=== PATIENT | female | born 1945 | race Caucasian/White ===

== ENCOUNTER → 2019-04-09 12:38 | Outpatient (BNVA) | payer MEDICARE, MEDICAID, SELFPAY | PROVIDERS: Family Provider Nurse Practitioner; PCP Nurse Practitioner; Visit Provider Nurse Practitioner | DX: E11.9 Type 2 diabetes mellitus without complications (principal) | CPT/HCPCS: 80053; 81003; 83036 ==

== ENCOUNTER → 2019-04-10 13:50 | Outpatient (BNVA) | payer MEDICARE, MEDICAID, SELFPAY | PROVIDERS: Family Provider Nurse Practitioner; PCP Nurse Practitioner; Visit Provider Nurse Practitioner | DX: M54.6 Pain in thoracic spine (principal); M54.5 Low back pain; I70.0 Atherosclerosis of aorta | CPT/HCPCS: 72072; 72100 ==

== ENCOUNTER → 2019-06-21 10:31 | Outpatient (BNVA) | payer MEDICARE, MEDICAID, SELFPAY | PROVIDERS: Family Provider Nurse Practitioner; PCP Nurse Practitioner; Visit Provider Nurse Practitioner | DX: E11.9 Type 2 diabetes mellitus without complications (principal); I10 Essential (primary) hypertension; R06.00 Dyspnea, unspecified; M10.9 Gout, unspecified; M54.17 Radiculopathy, lumbosacral region; E11.65 Type 2 diabetes mellitus with hyperglycemia; R07.89 Other chest pain | CPT/HCPCS: 71046; 81000 ==

== ENCOUNTER → 2019-06-24 08:39 | Outpatient (BNVA) | payer MEDICARE, MEDICAID, SELFPAY | PROVIDERS: Family Provider Nurse Practitioner; PCP Nurse Practitioner; Visit Provider Nurse Practitioner | DX: E78.5 Hyperlipidemia, unspecified (principal); E11.9 Type 2 diabetes mellitus without complications | CPT/HCPCS: 80053; 80061; 83036; 85025 ==

== ENCOUNTER 2019-07-08 13:18 | Outpatient (CLI) | payer MEDICARE, MEDICAID, SELFPAY ==
--- NOTE | 2019-07-08 13:32 | USCV_ITS ---
Dnaya Reed Age: 74 Gender: F : 1945 Exam Date: 07/08/2019 13:56 Ordering Phys: Shelly Dorsey Technologist: Amaris Preciado Exam Location: [facility] [place] Indication: SOB BP: / HR: 73 Rhythm: Sinus Technical Quality: Adequate MEASUREMENTS (Male / Female) Normal Values 2D ECHO LV Diastolic Diameter PLAX 3.7 cm 4.2 - 5.9 / 3.9 - 5.3 cm LV Systolic Diameter PLAX 1.8 cm LV Chamber Size 2.6 cm IVS Diastolic Thickness 1.4 cm 0.6 - 1.0 / 0.6 - 0.9 cm IVS Systolic Thickness 1.7 cm LVPW Diastolic Thickness 2.3 cm 0.6 - 1.0 / 0.6 - 0.9 cm LVPW Systolic Thickness 1.8 cm RV Chamber Size 1.9 cm LVOT Diameter 2.0 cm LV Ejection Fraction 2D Teich 83.1 % LV Ejection Fraction MOD 2C 39.6 % LV Ejection Fraction 2C AL 37.1 % LA Diameter 5.6 cm LA Width 2.9 cm LA Height 4.4 cm RA Width 2.9 cm RA Height 4.4 cm Aorta at Sinotubular Diameter 2.8 cm M-MODE LV Diastolic Diameter MM 4.4 cm 4.2 - 5.9 / 3.9 - 5.3 cm LV Systolic Diameter MM 2.6 cm LV Ejection Fraction MM Teich 71.5 % IVS Diastolic Thickness MM 0.9 cm 0.6 - 1.0 / 0.6 - 0.9 cm IVS Systolic Thickness MM 1.7 cm LVPW Diastolic Thickness MM 1.3 cm 0.6 - 1.0 / 0.6 - 0.9 cm LVPW Systolic Thickness MM 1.7 cm Aortic Annulus Diameter 3.2 cm LA Ao Ratio MM 1.8 MV E Point Septal Separation 0.5 cm FINDINGS Left Ventricle Normal left ventricular size and systolic function, EF 65%. Mild left ventricular hypertrophy. No regional wall motion abnormalities. Right Ventricle There is thickening of the right ventricular free wall with normal ejection fraction Mildly increased right ventricular size. Right Atrium Mildly increased right atrial size. Left Atrium Mildly increased left atrial size. Mitral Valve Thickened mitral valve. Aortic Valve Thickened aortic valve. Tricuspid Valve Could not be visualized well Pulmonic Valve Not visualized well Pericardium Trivial pericardial effusion. Aorta Normal aortic annulus size. CONCLUSIONS Normal left ventricular size and systolic function, EF 65%. Mild left ventricular hypertrophy. No regional wall motion abnormalities. Mild biatrial enlargement. Thickened aortic and mitral valves. Trivial pericardial effusion. Compared to the study from 05/24/2013, there may not be a significant change in the 2-D findings Dr Seble Hassan MD FACC (Electronically Signed) Final Date: 08 Jul 2019 19:10 S
== END 2019-07-08 13:19 | disposition home or self-care (01) ==
PROVIDERS: Visit Provider Nurse Practitioner
DX: R06.02 Shortness of breath (principal); I08.0 Rheumatic disorders of both mitral and aortic valves; I31.3 Pericardial effusion (noninflammatory)
CPT/HCPCS: 93308

== ENCOUNTER 2019-11-24 18:13 | Emergency (ER) | payer MEDICARE, MEDICAID, SELFPAY ==
[2019-11-24 18:17] VITALS: BP 145/67; PULSE 83; RESP 18; TEMP 37.6; O2SAT 92; BMI 34.3
--- NOTE | 2019-11-24 18:31 | XRR_ITS ---
PROCEDURE INFORMATION: Exam: XR Chest, 1 View Exam date and time: 11/24/2019 7:39 PM Age: 74 years old Clinical indication: Cough and fever TECHNIQUE: Imaging protocol: XR of the chest Views: 1 view. COMPARISON: No relevant prior studies available. FINDINGS: Lungs: Unremarkable. No consolidation. Pleural space: Unremarkable. No pleural effusion. No pneumothorax. Heart/Mediastinum: Cardiomegaly with arteriosclerosis. Bones/joints: Unremarkable for age. Other findings: Obesity. XR/XR chest 1V portable [id number] IMPRESSION: Nonacute.
--- NOTE | 2019-11-24 18:34 | W.ED.URI ---
HPI - URI/Sore Throat General: Chief Complaint: Upper Respiratory Infection Stated Complaint: FLU LIKE SYMPTOMS Time Seen by Provider: 11/24/19 18:28 History of Present Illness: HPI Narrative: Patient complains about cough today was feeling fine yesterday said having some sinus drainage wants make sure she does not have COVID. She not had any exposure that she is aware of been staying home. MD elicited complaint: cough, sore throat, rhinorrhea and nasal congestion Pertinent past history: other (Anxiety) Onset (ago): hour(s) Consistency: intermittent Severity: mild Description of mucous: watery Able to tolerate fluids by mouth: Yes Relieving factors: nothing Associated symptoms: Reports cough and nasal congestion; Deny abdominal pain, chills, chest pain, fever(s), headache(s), nausea or vomiting Review of Systems Const: Denies: fever(s), chills or body aches Eyes: Denies: change in vision or blurry vision ENMT: Reports: throat pain and nasal congestion Card: Denies: chest pain or dyspnea on exertion Resp: Reports: non-productive cough; Denies: dyspnea or productive cough GI: Denies: abdominal pain, nausea or vomiting Musc: Denies: extremity pain Skin/Breast: Denies: rash Neuro: Denies: headache(s) Psych: Denies: anxiety or depression Ian/Lymph: Denies: easy bruising PFSH ED PFSH: Medical History (Updated 11/24/19 @ 20:18 by KORINA Dunn) Anxiety BMI 37.0-37.9, adult Chest pressure Dyslipidemia Gout History of CVA (cerebrovascular accident) Hypertension Obesity Radiculopathy, lumbosacral region Sleep apnea Vitamin D insufficiency Surgical History History of colonoscopy 2014 History of tubal ligation 1974 Family History Mother Hyperlipidemia Heart disease Social History Smoking and tobacco status: never smoked Second hand smoke exposure: No Smoking risk assessment/counseling performed?: No Alcohol intake: never Desire information about alcohol rehabilitation?: No Counseling given: No Desire information about substance/drug rehabilitation?: No Counseling given: No Caregiver/support person: No Lives independently: Yes Household members: spouse Housing: House Marital status: Number of children: 5 service: No Current occupational status: unemployed and retired History of recent travel: No Current gender identity: Female Physical Exam Const: COMMON NORMALS: no acute distress, average body habitus and patient oriented x3 HENMT: COMMON NORMALS: normocephalic HEAD & SCALP: normal to inspection and normocephalic FACE & SINUS: normal facial exam Eye: COMMON NORMALS: conjunctivae normal GENERAL EYE: appearance normal, both eyes and all related structures CONJUNCTIVA: Yes conjunctivae normal Neck/C-Spine: COMMON NORMALS: no JVD Chest: COMMONS NORMALS: normal inspection of the chest Resp: COMMON NORMALS: normal respiratory effort and clear to auscultation bilaterally AUSCULTATION: clear to auscultation bilaterally Cardio: COMMON NORMALS: no JVD, regular rate and regular rhythm RATE: regular rate RHYTHM: regular rhythm GI: COMMON NORMALS: Normal to inspection, nondistended, normoactive bowel sounds present Extremity: COMMON NORMALS: normal to inspection and full ROM Neuro: COMMON NORMALS: patient oriented x3 Course Vital Signs: Vital signs: Vital Signs Temperature 99.6 F 11/24/19 18:17 Pulse Rate 83 11/24/19 20:27 Respiratory Rate 18 11/24/19 20:27 Blood Pressure 150/76 11/24/19 20:27 Pulse Oximetry 93 11/24/19 20:27 MDM - URI/Sore Throat MDM Narrative: Medical decision making narrative: Nurse collected rapid by accident I went ahead and canceled the [facility] and went and ordered the rapid since a swab was done . Discussed COVID symptoms with patient patient is aware of what to watch for sats 90 to 92% while here she is not been short of breath. Lab Data: Labs: Lab Results 11/24/19 11/24/19 11/24/19 Range/Units 19:10 19:10 19:30 WBC 11.7 H (4.0-10.0) 10^3/ uL RBC 4.82 (4.1-5.3) 10^6/u L Hgb 13.7 (11.5-15.3) g/dL Hct 43.1 (37.0-47.0) % MCV 89.4 (81-99) fL MCH 28.4 (28.0-34.0) pg MCHC 31.8 (30.0-36.0) g/dL RDW 13.3 (12.1-15.1) % Plt Count 270 (130-400) 10^3/c mm MPV 9.9 (7.4-10.4) fL Neut % (Auto) 84.3 % Lymph % (Auto) 9.1 % [place] % (Auto) 5.3 % Eos % (Auto) 0.4 % Baso % (Auto) 0.5 % Neut # (Auto) 9.84 H (1.8-7.7) 10^3/u L Lymph # (Auto) 1.1 (0.8-4.8) 10^3/u L [place] # (Auto) 0.6 (0.2-0.9) 10^3/u L Eos # (Auto) 0.1 (0.0-0.8) 10^3/u L Baso # (Auto) 0.1 (0.0-0.1) 10^3/u L Nucleated RBC % (a uto) 0 % Nucleated RBCs # 0.0 /100WBC Sodium (136-145) mmol/L Potassium (3.5-5.1) mmol/L Chloride (98-107) mmol/L Carbon Dioxide (22-29) mmol/L Anion Gap (5-19) BUN (8-23) mg/dL Creatinine (0.5-0.9) mg/dL GFR Calculation Glucose (65-115) mg/dL Calculated Osmolal ity (285-295) mOsm/k g Calcium (8.5-10.5) mg/dL Total Bilirubin (0.15-1.2) mg/dL AST (0-32) U/L ALT (0-33) U/L Alkaline Phosphata se (35-105) IU/L Total Protein (6.6-8.7) g/dL Albumin (3.5-5.2) g/dL Globulin (1.3-4.6) g/dL Influenza Type A A g Negative (Negative) Influenza Type B A g Negative (Negative) Group A Strep Rapi d Negative (Negative) 11/24/19 Range/Units 19:30 WBC (4.0-10.0) 10^3/ uL RBC (4.1-5.3) 10^6/u L Hgb (11.5-15.3) g/dL Hct (37.0-47.0) % MCV (81-99) fL MCH (28.0-34.0) pg MCHC (30.0-36.0) g/dL RDW (12.1-15.1) % Plt Count (130-400) 10^3/c mm MPV (7.4-10.4) fL Neut % (Auto) % Lymph % (Auto) % [place] % (Auto) % Eos % (Auto) % Baso % (Auto) % Neut # (Auto) (1.8-7.7) 10^3/u L Lymph # (Auto) (0.8-4.8) 10^3/u L [place] # (Auto) (0.2-0.9) 10^3/u L Eos # (Auto) (0.0-0.8) 10^3/u L Baso # (Auto) (0.0-0.1) 10^3/u L Nucleated RBC % (a uto) % Nucleated RBCs # /100WBC Sodium 139 (136-145) mmol/L Potassium 3.8 (3.5-5.1) mmol/L Chloride 101 (98-107) mmol/L Carbon Dioxide 26 (22-29) mmol/L Anion Gap 15.8 (5-19) BUN 15 (8-23) mg/dL Creatinine 0.9 (0.5-0.9) mg/dL GFR Calculation Not Reportable Glucose 127 H (65-115) mg/dL Calculated Osmolal ity 290 (285-295) mOsm/k g Calcium 8.9 (8.5-10.5) mg/dL Total Bilirubin 1.0 (0.15-1.2) mg/dL AST 22 (0-32) U/L ALT 23 (0-33) U/L Alkaline Phosphata se 154 H (35-105) IU/L Total Protein 7.2 (6.6-8.7) g/dL Albumin 4.2 (3.5-5.2) g/dL Globulin 3.0 (1.3-4.6) g/dL Influenza Type A A g (Negative) Influenza Type B A g (Negative) Group A Strep Rapi d (Negative) Discharge Plan Discharge Patient Disposition: Home Clinical Impression: Viral syndrome Upper respiratory infection Qualifiers: URI type: acute nasopharyngitis (common cold) Qualified Code(s): J00 - Acute nasopharyngitis [common cold] Condition: Stable Prescriptions: No Action aspirin [Aspir-Low] 81 mg tablet,delayed release (DR/EC) 81 mg PO QDAY RF: 0 nitroglycerin [Nitrostat] 0.4 mg tablet, sublingual 0.4 mg SUBLINGUAL Q5M PRN (Reason: chest pain) Qty: 25 RF: 3 Ozempic 0.25 mg or 0.5 mg(2 mg/1.5 mL) pen injector 0.25 mg SUBCUT .weekly Qty: 1.5 RF: 2 allopurinol 100 mg tablet 100 mg PO QDAY Qty: 30 RF: 2 amlodipine [Norvasc] 5 mg tablet 5 mg PO QDAY Qty: 30 RF: 2 atorvastatin 40 mg tablet 40 mg PO QDAY Qty: 30 RF: 2 cholecalciferol (vitamin D3) 125 mcg (5,000 unit) capsule 125 mcg PO DAILY Qty: 30 RF: 2 duloxetine [Cymbalta] 20 mg capsule,delayed release(DR/EC) 20 mg PO BID Qty: 60 RF: 2 isosorbide mononitrate 30 mg tablet extended release 24 hr 30 mg PO DAILY Qty: 30 RF: 2 losartan 100 mg tablet 100 mg PO QDAY Qty: 30 RF: 2 magnesium oxide 400 mg magnesium capsule 400 mg PO BID Qty: 60 RF: 2 metoprolol succinate 50 mg tablet extended release 24 hr 50 mg PO QDAY Qty: 30 RF: 2 potassium chloride 10 mEq tablet extended release 10 meq PO QDAY Qty: 30 RF: 2 torsemide 10 mg tablet 10 mg PO .BID as needed Qty: 45 RF: 2 Discharge Orders: Discharge Order (Routine); Ordered 11/24/19 Ordered By: Mian Mendoza Discharge Diet: Usual diet Discharge Activity: Increase activity as tolerated Patient Instructions: Viral Syndrome (ED) Activity Restrictions/Additional Instructions: Follow-up with medical provider as directed. Be aware of the cold symptoms that we discussed since loss of taste loss of smell body aches high fevers cough shortness of breath. Pedal symptoms happen or worsen patient is to come back here or go see their family medical provider. Return to the ER or your medical provider if condition worsens. Please read and understand discharge instructions. If any questions ask please. 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
[2019-11-24 19:33] LABS: Rapid Strep A Test Negative (Negative)
[2019-11-24 19:34] LABS: Basophils # 0.1 10^3/uL (0.0-0.1); Basophils % 0.5 %; Eosinophils # 0.1 10^3/uL (0.0-0.8); Eosinophils % 0.4 %; Hematocrit 43.1 % (37.0-47.0); Hemoglobin 13.7 g/dL (11.5-15.3); Lymphocytes # 1.1 10^3/uL (0.8-4.8); Lymphocytes % 9.1 %; Mean Corpuscular HGB Conc 31.8 g/dL (30.0-36.0); Mean Corpuscular Hemoglobin 28.4 pg (28.0-34.0); Mean Corpuscular Volume 89.4 fL (81-99); Mean Platelet Volume 9.9 fL (7.4-10.4); Monocytes # 0.6 10^3/uL (0.2-0.9); Monocytes % 5.3 %; Neutrophils # 9.84 10^3/uL (1.8-7.7); Neutrophils % 84.3 %; Nucleated Red Blood Cells % 0 %; Platelet Count 270 10^3/cmm (130-400); Red Blood Count 4.82 10^6/uL (4.1-5.3); Red Cell Distribution Width 13.3 % (12.1-15.1); White Blood Count 11.7 10^3/uL (4.0-10.0)
[2019-11-24 19:45] LABS: Influenza A by IFA Negative (Negative); Influenza B by IFA Negative (Negative)
[2019-11-24 19:54] LABS: Alanine Aminotransferase 23 U/L (0-33); Albumin Level 4.2 g/dL (3.5-5.2); Alkaline Phosphatase 154 IU/L (35-105); Anion Gap 15.8 (5-19); Aspartate Amino Transferase 22 U/L (0-32); Blood Urea Nitrogen 15 mg/dL (8-23); Calcium 8.9 mg/dL (8.5-10.5); Carbon Dioxide 26 mmol/L (22-29); Chloride 101 mmol/L (98-107); Glucose 127 mg/dL (65-115); Osmolality Calculated 290 mOsm/kg (285-295); Potassium 3.8 mmol/L (3.5-5.1); Sodium 139 mmol/L (136-145); Total Protein 7.2 g/dL (6.6-8.7)
[2019-11-24 20:04] VITALS: PULSE 88; RESP 18; O2SAT 91
[2019-11-24 20:27] VITALS: BP 150/76; PULSE 83; RESP 18; O2SAT 93
[2019-11-24 21:40] LABS: SARS Covid-2 Antigen Negative (Negative)
== END 2019-11-24 20:29 | disposition home or self-care (01) ==
PROVIDERS: Emergency Provider Nurse Practitioner Family
DX: J00 Acute nasopharyngitis [common cold] (principal); B34.9 Viral infection, unspecified; Z79.82 Long term (current) use of aspirin; E78.5 Hyperlipidemia, unspecified; Z86.73 Personal history of transient ischemic attack (TIA), and cerebral infarction without residual deficits; I10 Essential (primary) hypertension
CPT/HCPCS: 12345; 71045; 80053; 85025; 87081; 87426; 87804; 87880; 99283

== ENCOUNTER → 2019-12-16 09:16 | Outpatient (BNVA) | payer MEDICARE, MEDICAID, SELFPAY | PROVIDERS: Visit Provider Nurse Practitioner | DX: I10 Essential (primary) hypertension (principal); E11.9 Type 2 diabetes mellitus without complications; M10.9 Gout, unspecified; M54.17 Radiculopathy, lumbosacral region; E55.9 Vitamin D deficiency, unspecified; E11.65 Type 2 diabetes mellitus with hyperglycemia; R07.89 Other chest pain; E78.5 Hyperlipidemia, unspecified; Z23 Encounter for immunization | CPT/HCPCS: 80053; 80061; 81000 ==

== ENCOUNTER → 2020-03-09 09:01 | Outpatient (BNVA) | payer MEDICARE, MEDICAID, SELFPAY | PROVIDERS: Visit Provider Nurse Practitioner | DX: E11.65 Type 2 diabetes mellitus with hyperglycemia (principal); I10 Essential (primary) hypertension; E78.5 Hyperlipidemia, unspecified | CPT/HCPCS: 80053; 81000; 83036; 85025 ==

== ENCOUNTER → 2020-05-29 11:42 | Outpatient (BNVA) | payer MEDICARE, MEDICAID, SELFPAY | PROVIDERS: PCP Nurse Practitioner; Visit Provider Nurse Practitioner | DX: E11.65 Type 2 diabetes mellitus with hyperglycemia (principal); I10 Essential (primary) hypertension; M10.9 Gout, unspecified; E78.5 Hyperlipidemia, unspecified; E55.9 Vitamin D deficiency, unspecified; M54.17 Radiculopathy, lumbosacral region; R07.89 Other chest pain; E11.9 Type 2 diabetes mellitus without complications; H61.20 Impacted cerumen, unspecified ear; H83.02 Labyrinthitis, left ear | CPT/HCPCS: 80053; 80061; 83036 ==

== ENCOUNTER → 2020-08-19 10:31 | Outpatient (BNVA) | payer MEDICARE, MEDICAID, SELFPAY | PROVIDERS: PCP Nurse Practitioner; Visit Provider Nurse Practitioner | DX: E11.65 Type 2 diabetes mellitus with hyperglycemia (principal); I10 Essential (primary) hypertension; E78.5 Hyperlipidemia, unspecified; F41.9 Anxiety disorder, unspecified; R07.89 Other chest pain; M54.17 Radiculopathy, lumbosacral region; M10.9 Gout, unspecified; H83.02 Labyrinthitis, left ear; E55.9 Vitamin D deficiency, unspecified | CPT/HCPCS: 80053; 82043; 85025 ==

== ENCOUNTER → 2020-11-13 10:36 | Outpatient (BNVA) | payer MEDICARE, MEDICAID, SELFPAY | PROVIDERS: PCP Nurse Practitioner; Visit Provider Nurse Practitioner | DX: E11.65 Type 2 diabetes mellitus with hyperglycemia (principal); E55.9 Vitamin D deficiency, unspecified; I10 Essential (primary) hypertension; E78.5 Hyperlipidemia, unspecified | CPT/HCPCS: 80053; 80061; 82306; 83036; 85025 ==

== ENCOUNTER → 2021-04-26 09:48 | Outpatient (BNVA) | payer MEDICARE, MEDICAID, SELFPAY | PROVIDERS: PCP Nurse Practitioner; Visit Provider Nurse Practitioner | DX: E78.5 Hyperlipidemia, unspecified (principal); M54.17 Radiculopathy, lumbosacral region; I10 Essential (primary) hypertension; E11.65 Type 2 diabetes mellitus with hyperglycemia; F41.9 Anxiety disorder, unspecified; Z86.73 Personal history of transient ischemic attack (TIA), and cerebral infarction without residual deficits; J31.0 Chronic rhinitis | CPT/HCPCS: 80053; 80061; 83036; 84443 ==

== ENCOUNTER → 2021-05-17 09:52 | Outpatient (BNVA) | payer MEDICARE, MEDICAID, SELFPAY | PROVIDERS: PCP Nurse Practitioner; Visit Provider Nurse Practitioner | DX: I10 Essential (primary) hypertension (principal); R06.00 Dyspnea, unspecified | CPT/HCPCS: 80048; 83880 ==

== ENCOUNTER → 2021-06-09 11:49 | Outpatient (BNVA) | payer MEDICARE, MEDICAID, SELFPAY | PROVIDERS: PCP Nurse Practitioner; Visit Provider Internal Medicine | DX: R60.9 Edema, unspecified (principal); I10 Essential (primary) hypertension; R06.00 Dyspnea, unspecified; G47.30 Sleep apnea, unspecified; E78.5 Hyperlipidemia, unspecified; R07.89 Other chest pain; E11.65 Type 2 diabetes mellitus with hyperglycemia; E66.9 Obesity, unspecified; Z68.37 Body mass index [BMI] 37.0-37.9, adult; Z79.82 Long term (current) use of aspirin | CPT/HCPCS: 99214 ==

== ENCOUNTER → 2021-06-28 09:22 | Outpatient (BNVA) | payer MEDICARE, MEDICAID, SELFPAY | PROVIDERS: PCP Nurse Practitioner; Visit Provider Nurse Practitioner | DX: R05.9 Cough, unspecified (principal); R00.0 Tachycardia, unspecified | CPT/HCPCS: 71046 ==

== ENCOUNTER 2021-06-28 19:13 | Inpatient (IN) | payer MEDICARE, MEDICAID, SELFPAY ==
[2021-06-28] VITALS (7 sets, daily range): BP systolic 133–149; BP diastolic 77–86; PULSE 101–118; RESP 16–22; TEMP 37.1; O2SAT 89–95; BMI 38.2
--- NOTE | 2021-06-28 19:28 | XRR_ITS ---
PROCEDURE INFORMATION: Exam: XR Chest Exam date and time: 06/28/2021 7:45 PM Age: 75 years old Clinical indication: Shortness of breath; Additional info: Dyspnea TECHNIQUE: Imaging protocol: XR of the chest. Views: 1 view. COMPARISON: CR XR chest 2V* [id number] 06/28/2021 9:20 AM FINDINGS: Lungs: Bibasilar left greater than right atelectasis versus infiltrate. Pleural spaces: Unremarkable. No pleural effusion. No pneumothorax. Heart/Mediastinum: Cardiomegaly. Bones/joints: Unremarkable. XR/XR chest 1V portable [id number] IMPRESSION: 1. Cardiomegaly. 2. Bibasilar left greater than right atelectasis versus infiltrate.
--- NOTE | 2021-06-28 19:35 | ECG_ITS ---
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 Measurements Intervals [place] Rate: 131 P: 243 ID: [id number] QRS: -32 QRSD: 88 T: 59 QT: 306 QTc: 452 Interpretive Statements SINUS TACHYCARDIA LEFT AXIS DEVIATION [QRS AXIS < -30] LOW QRS VOLTAGE [QRS DEFLECTION < 0.5/1.0 mV IN LIMB/CHEST LEADS] POSSIBLE ANTERIOR MYOCARDIAL INFARCTION , PROBABLY OLD [30 ms Q WAVE IN V3/V4, OR R < 0.2 mV IN V4] No previous ECG available for comparison Electronically Signed On 06-28-2021 21:38:19 CDT by Seble Hassan M.D. [id number]
[2021-06-28 19:55] LABS: Basophils # 0.1 10^3/uL (0.0-0.1); Basophils % 0.4 %; Eosinophils # 0.1 10^3/uL (0.0-0.8); Eosinophils % 0.5 %; Hemoglobin 12.9 g/dL (11.5-15.3); Lymphocytes # 1.8 10^3/uL (0.8-4.8); Lymphocytes % 11.5 %; Mean Corpuscular HGB Conc 33.1 g/dL (30.0-36.0); Mean Corpuscular Hemoglobin 28.2 pg (28.0-34.0); Mean Corpuscular Volume 85.2 fl (81-99); Mean Platelet Volume 10.8 fL (7.4-10.4); Monocytes # 1.3 10^3/uL (0.2-0.9); Monocytes % 8.1 %; Neutrophils # 12.45 10^3/uL (1.8-7.7); Neutrophils % 79.1 %; Nucleated Red Blood Cells % 0 %; Platelet Count 303 10^3/cmm (130-400); Red Blood Count 4.58 10^6/uL (4.1-5.3); White Blood Count 15.7 10^3/uL (4.0-10.0)
--- NOTE | 2021-06-28 19:59 | ED_ITS ---
HPI - General Adult General: Chief complaint: Shortness of Breath/Dyspnea Stated complaint: SOB Time Seen by Provider: 06/28/21 19:28 History of Present Illness: Patient is 75-year-old female with history of CHF, morbid obesity, gout, prior CVA, hypertension who presents the emergency room with acute onset of dyspnea subjective fever and cough x4 days. Patient reports that all the symptoms has worsened over the last 4 days and was told to come to the emergency room for increased oxygen requirement in the setting of productive sputum. Patient was seen earlier today at urgent care was noted to be satting at 85% on room air and is tachycardic. Patient was told to go to the emergency room. Patient denies any history of COPD/asthma/smoking. Patient has been compliant with her furosemide at home. Patient denies any swelling in the legs. Patient denies any recent immobilization or travel. Onset:4 days ago Duration:4 days Location:home Severity:moderate Associated symptoms: Reports dyspnea; Deny chest pain, nausea, rash, palpitations or vomiting Review of Systems Const: Denies: fever(s) or chills Eyes: Denies: change in vision ENMT: Denies: mouth pain Card: Denies: chest pain or palpitations Resp: Reports: dyspnea and productive cough GI: Denies: abdominal pain, nausea, vomiting or diarrhea : Denies: dysuria Musc: Denies: extremity pain Skin/Breast: Denies: rash or new lesions Neuro: Denies: weakness in extremities Psych: Reports: other (Normal mood) Ian/Lymph: Denies: easy bruising PFS ED PFSH: Medical History Anxiety BMI 37.0-37.9, adult Chest pressure CHF (congestive heart failure) Dyslipidemia Gout History of CVA (cerebrovascular accident) Hypertension Irritable bowel syndrome with diarrhea Obesity Radiculopathy, lumbosacral region Sleep apnea Vitamin D insufficiency Surgical History History of colonoscopy 2013 History of tubal ligation 1974 Family History Mother Hyperlipidemia Heart disease Social History Smoking and tobacco status: never smoked Second hand smoke exposure: No Smoking risk assessment/counseling performed?: No Alcohol intake: never Desire information about alcohol rehabilitation?: No Counseling given: No Desire information about substance/drug rehabilitation?: No Counseling given: No Caregiver/support person: No Lives independently: Yes Household members: spouse Housing: House Marital status: Number of children: 5 service: No Current occupational status: unemployed and retired History of recent travel: No Current gender identity: Female Physical Exam Const: COMMON NORMALS: alert HENMT: COMMON NORMALS: atraumatic HEAD & SCALP: atraumatic MOUTH: moist mucous membranes abnormal Eye: COMMON NORMALS: EOMs intact bilaterally and conjunctivae normal CONJUNCTIVA: Yes conjunctivae normal Neck/C-Spine: COMMON NORMALS: full ROM and supple Resp: COMMON NORMALS: normal respiratory effort OTHER: + Coarse breath sounds bilaterally Cardio: RATE: tachycardic GI: COMMON NORMALS: Soft to palpation and non-tender PALPATION: Yes Soft to palpation Extremity: COMMON NORMALS: full ROM Neuro: SENSORIUM/ORIENTATION: Yes alert MOTOR EXAM: No Abnormal motor strength present and Other motor observations present (no focal motor deficits) Psych: COMMON NORMALS: speech normal SPEECH: Yes normal speech MOOD & AFFECT: Yes euthymic mood Course Vital Signs: Vital signs: Vital Signs Temperature 98.2 F 07/04/21 15:10 Pulse Rate 80 07/04/21 15:40 Respiratory Rate 18 07/04/21 15:23 Blood Pressure 128/76 07/04/21 15:10 Pulse Oximetry 95 07/04/21 15:23 MDM - General Adult Medical Decision Making 75-year-old Fe with history of CHF, CVA, hyperlipidemia, hypertension presenting to the emergency room for evaluation of new onset dyspnea and cough x4 days. On arrival, patient was noted to have mild increased work of breathing with dyspnea and coarse breath sounds bilaterally. He was noted to be satting at 85% on room air that improved to 94% on 3L. Patient is intermittently tachycardic with heart rate between 110s to 130s. Lab showed white count 15.7. X-ray chest shows possible bilateral pneumonia. Suspect that the patient may actually have atrial flutter as patient has had interval heart rates. Patient received 5 mg metoprolol. Decision was made to not give 30 cc/kg of IVF given patient's heart failure history. Patient received 1 L fluid with improvement heart rate. Patient received DuoNeb with improvement in breathing. S/p azithromycin and ceftriaxone. K of 2.4, s/p IV and PO KCl Disposition: admission Lab Data : 07/04/21 04:02 07/04/21 04:02 Radiology Impressions Chest X-Ray 06/28/21 19:28 IMPRESSION: 1. Cardiomegaly. 2. Bibasilar left greater than right atelectasis versus infiltrate. Chest CT 06/30/21 16:14 IMPRESSION: 1. Multilobar irregular shaped pulmonary opacifications. Differential includes pneumonitis and pneumonia. Recommend follow-up to resolution to be sure there is no underlying neoplasm. Additional areas of atelectasis are present. 2. Very small LEFT pleural effusion. 3. LEFT adrenal myelolipoma. 4. No adenopathy. 5. Small pericardial effusion. Laboratory Results WBC 15.7 10^3/uL (4.0-10.0) H 06/28/21 19:38 RBC 4.58 10^6/uL (4.1-5.3) 06/28/21 19:38 Hgb 12.9 g/dL (11.5-15.3) 06/28/21 19:38 Hct 39.0 % (37.0-47.0) 06/28/21 19:38 MCV 85.2 fl (81-99) 06/28/21 19:38 MCH 28.2 pg (28.0-34.0) 06/28/21 19:38 MCHC 33.1 g/dL (30.0-36.0) 06/28/21 19:38 RDW 14.0 % (12.1-15.1) 06/28/21 19:38 Plt Count 303 10^3/cmm (130-400) 06/28/21 19:38 MPV 10.8 fL (7.4-10.4) H 06/28/21 19:38 Neut % (Auto) 79.1 % 06/28/21 19:38 Lymph % (Auto) 11.5 % 06/28/21 19:38 [place] % (Auto) 8.1 % 06/28/21 19:38 Eos % (Auto) 0.5 % 06/28/21 19:38 Baso % (Auto) 0.4 % 06/28/21 19:38 Neut # (Auto) 12.45 10^3/uL (1.8-7.7) H 06/28/21 19:38 Lymph # (Auto) 1.8 10^3/uL (0.8-4.8) 06/28/21 19:38 [place] # (Auto) 1.3 10^3/uL (0.2-0.9) H 06/28/21 19:38 Eos # (Auto) 0.1 10^3/uL (0.0-0.8) 06/28/21 19:38 Baso # (Auto) 0.1 10^3/uL (0.0-0.1) 06/28/21 19:38 Nucleated RBC % (auto) 0 % 06/28/21 19:38 Nucleated RBCs # 0.0 /100WBC 06/28/21 19:38 Specimen Type Arterial 06/28/21 20:17 Sample Site Radial, left 06/28/21 20:17 ABG pH 7.48 (7.35-7.45) H 06/28/21 20:17 ABG pCO2 31.9 mmHg (35-45) L 06/28/21 20:17 ABG pO2 60.6 mmHg (80.0-100.0) L 06/28/21 20:17 ABG HCO3 23.7 mmol/L (22-26) 06/28/21 20:17 ABG Base Excess 0.7 mmol/L (-2.0-2.0) 06/28/21 20:17 Oc Test Pos 06/28/21 20:17 Hematocrit 39.8 % (37-47) 06/28/21 20:17 O2 Delivery Device Nc 06/28/21 20:17 O2 Liters/Min 3.5 % 06/28/21 20:17 Care Coordination Manager ID [place] 06/28/21 20:17 Sodium 139 mmol/L (136-145) 06/28/21 21:35 Potassium 2.4 mmol/L (3.5-5.1) L* 06/28/21 21:35 Chloride 105 mmol/L (98-107) 06/28/21 21:35 Carbon Dioxide 18 mmol/L (22-29) L 06/28/21 21:35 Anion Gap 18.4 (5-19) 06/28/21 21:35 BUN 12 mg/dL (8-23) 06/28/21 21:35 Creatinine 1.1 mg/dL (0.5-0.9) H 06/28/21 21:35 GFR Calculation Not Reportable 06/28/21 21:35 Glucose 145 mg/dL (65-115) H 06/28/21 21:35 Calculated Osmolality 290 mOsm/kg (285-295) 06/28/21 21:35 Calcium 8.4 mg/dL (8.5-10.5) L 06/28/21 21:35 Troponin T Baseline 21 ng/L (0-10) H 06/28/21 19:38 Troponin T 120 Minute 18.64 ng/L (0-10) H 06/28/21 21:35 Delta Troponin T -2.36 ABS# (0-10) L 06/28/21 21:35 C-Reactive Protein 190.5 mg/L (0.0-4.9) H 06/28/21 21:35 NT-Pro-B Natriuret Pep 578 pg/mL (0-450) H 06/28/21 21:35 Procalcitonin 0.11 ng/mL (0-0.5) 06/28/21 21:35 Nasal Influ A H1 2008 PCR Not detected (NOT DETECT) 06/28/21 19:54 Coronavirus 229E (PCR) Not detected (NOT DETECT) 06/28/21 19:54 Influenza A (H1) PCR Not detected (NOT DETECT) 06/28/21 19:54 Influenza A (H3) PCR Not detected (NOT DETECT) 06/28/21 19:54 Influenza Type A (PCR) Not detected (NOT DETECT) 06/28/21 19:54 Influenza Type B (PCR) Not detected (NOT DETECT) 06/28/21 19:54 SARS-CoV-2 (PCR) Not detected (NOT DETECT) 06/28/21 19:54 Imaging Data Other Imaging: Radiologist's impression: [address] [address] XRay Report Signed Patient: Danya Reed Unit #: [id number] : 1945 Age/Sex: 75 / F ADM Date: 06/28/21 Loc: ER Room/Bed: Attending Dr: Ordering Provider/Ordering MD: Shon Moseley MD Date of Service: 06/28/21 Procedure(s): XR chest 1V portable [id number] Accession Number(s): [id number] Report Number: [id number] PROCEDURE INFORMATION: Exam: XR Chest Exam date and time: 06/28/2021 7:45 PM Age: 75 years old Clinical indication: Shortness of breath; Additional info: Dyspnea TECHNIQUE: Imaging protocol: XR of the chest. Views: 1 view. COMPARISON: CR XR chest 2V* [id number] 06/28/2021 9:20 AM FINDINGS: Lungs: Bibasilar left greater than right atelectasis versus infiltrate. Pleural spaces: Unremarkable. No pleural effusion. No pneumothorax. Heart/Mediastinum: Cardiomegaly. Bones/joints: Unremarkable. XR/XR chest 1V portable [id number] IMPRESSION: 1. Cardiomegaly. 2. Bibasilar left greater than right atelectasis versus infiltrate. ? 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
[2021-06-28] MEDS: ipratropium-albuterol 3 mL Neb INHALATION ×3 (20:12→20:16)
[2021-06-28 20:20] LABS: Troponin(5th) Baseline 21 ng/L (0-10)
[2021-06-28 20:28] LABS: ABG PCO2 31.9 mmHg (35-45); ABG PH Result 7.48 (7.35-7.45); Arterial Blood Gas Hematocrit 39.8 % (37-47); Base Excess ABG 0.7 mmol/L (-2.0-2.0); Blood Gas Allen Test Pos; Blood Gas LPM 3.5 %; Blood Gas Operator Identificat WALCI; Blood Gas Sample Site Radial, left; Blood Gas Sample Type Arterial; HCO3 ABG 23.7 mmol/L (22-26); Oxygen Device NC; PO2 ABG 60.6 mmHg (80.0-100.0)
--- NOTE | 2021-06-28 21:35 | ECG_ITS ---
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 Measurements Intervals [place] Rate: 149 P: MN: QRS: 32 QRSD: 85 T: 28 QT: 298 QTc: 470 Interpretive Statements SINUS TACHYCARDIA LOW QRS VOLTAGE IN PRECORDIAL LEADS [QRS DEFLECTION < 1.0 mV IN CHEST LEADS] PATTERN CONSISTENT WITH PULMONARY DISEASE MINIMAL ST DEPRESSION [0.025+ mV ST DEPRESSION] Compared to ECG 06/28/2021 19:52:30 Ventricular premature complex(es) now present Aberrant conduction of supraventricular beat(s) now present ST (T wave) deviation now present Left-axis deviation no longer present Myocardial infarct finding no longer present Electronically Signed On 06-29-2021 17:33:41 CDT by Nikunj Milan M.D. [id number]
[2021-06-28] MEDS: cefTRIAXone 1,000 MG in sodium chloride 0.9% (plus) 50 ML 100 MG IV (21:54)
[2021-06-28 22:14] LABS: Troponin 5 2HR 18.64 ng/L (0-10)
[2021-06-28 22:18] LABS: Troponin 5 2HR Delta -2.36 ABS# (0-10)
[2021-06-28] MEDS: azithromycin 500 MG in sodium chloride 0.9% 250 ML 250 MG IV (22:21)
[2021-06-28 22:22] LABS: NT Pro B Type Natriuretic Pept 578 pg/mL (0-450); Procalcitonin 0.11 ng/mL (0-0.5)
[2021-06-28 22:33] LABS: Anion Gap 18.4 (5-19); Blood Urea Nitrogen 12 mg/dL (8-23); C Reactive Protein 190.5 mg/L (0.0-4.9); Calcium 8.4 mg/dL (8.5-10.5); Carbon Dioxide 18 mmol/L (22-29); Chloride 105 mmol/L (98-107); Glucose 145 mg/dL (65-115); Osmolality Calculated 290 mOsm/kg (285-295); Sodium 139 mmol/L (136-145)
[2021-06-28] MEDS: metoprolol tartrate 1 mg/1 mL SDV 5 mL 5 MG IVP (22:40)
[2021-06-28 22:42] LABS: Potassium 2.4 mmol/L (3.5-5.1)
[2021-06-28] MEDS: potassium chloride oral liq 20 mEq/15 mL UDC 40 MEQ PO (23:00)
--- NOTE | 2021-06-28 23:46 | P.HP_ITS ---
Providers/Chief Complaint Admitting Physician: Vivian Christopher DO Primary Care Provider: NA Major Chief Complaint: SOB History of Present Illness The patient is a 75-year-old female who percent chief complaint of dyspnea which started approximately 4 days prior to hospitalization. She states it was of gradual onset. She admits to onset of fever, rigors, cough which is nonproductive, abdominal pain, diarrhea, myalgia, specifically in her back. She claims to have peripheral edema however none is observed. She denies nausea, vomiting, wheeze, chest pain, lightheadedness, dizziness, diaphoresis, palpitations, sense of rapid heartbeat, sensation knee regular heartbeat. She presents for further evaluation Review of Systems General: Reports: 10 or more systems reviewed and unremarkable except in HPI and below Medications/Allergies Home Medications Medication Instructions Recorded Confirmed Last Taken Type aspirin 81 mg tablet,delayed 81 mg PO QDAY 03/21/19 06/28/21 Unknown History release (Aspir-Low) nitroglycerin 0.4 mg sublingual 0.4 mg SUBLINGUAL Q5M PRN #25 tab 05/22/19 06/28/21 Unknown Rx tablet (Nitrostat) allopurinol 100 mg tablet 100 mg PO QDAY #30 tab 11/13/20 06/28/21 Unknown Rx amlodipine 10 mg tablet 10 mg PO DAILY #90 tab 03/05/21 06/28/21 Unknown Rx losartan 100 mg tablet 150 mg PO QDAY #90 tab 04/05/21 06/28/21 Unknown Rx atorvastatin 40 mg tablet 40 mg PO QDAY #30 tab 04/26/21 06/28/21 Unknown Rx duloxetine 20 mg capsule,delayed 20 mg PO BID #60 cap 04/26/21 06/28/21 Unknown Rx release (Cymbalta) isosorbide mononitrate 30 mg 30 mg PO BID #60 tab 04/26/21 06/28/21 Unknown Rx tablet,extended release 24 hr metoprolol succinate 50 mg 50 mg PO QDAY #30 tab 04/26/21 06/28/21 Unknown Rx tablet,extended release 24 hr potassium chloride 10 mEq 10 meq PO QDAY #30 tab 04/26/21 06/28/21 Unknown Rx tablet,extended release semaglutide (Ozempic) 0.25 mg (0.2 mL) SUBCUT .weekly 04/26/21 06/28/21 Unknown Rx #1.5 ml torsemide 10 mg tablet 10 mg PO QAM #30 tab 04/26/21 06/28/21 Unknown Rx amoxicillin 500 mg-potassium 1 tab PO Q12H #14 tab 06/28/21 06/28/21 Unknown Rx clavulanate 125 mg tablet (Augmentin) furosemide 40 mg tablet (Lasix) See Rx Instructions PO .COMPLEX #7 06/28/21 06/28/21 Unknown Rx tab Allergies Allergy/AdvReac Type Severity Reaction Status Date / Time acetaminophen [From Vicodin] Allergy Unknown Verified 06/28/21 09:56 hydrocodone [From Vicodin] Allergy Unknown Verified 06/28/21 09:56 salsalate Allergy Unknown Verified 06/28/21 09:56 Tetracyclines Allergy Unknown Verified 06/28/21 09:56 PFSH Acute PFSH: Medical History Anxiety BMI 37.0-37.9, adult Chest pressure CHF (congestive heart failure) Dyslipidemia Gout History of CVA (cerebrovascular accident) Hypertension Irritable bowel syndrome with diarrhea Obesity Radiculopathy, lumbosacral region Sleep apnea Vitamin D insufficiency Surgical History History of colonoscopy 2013 History of tubal ligation 1974 Family History Mother Hyperlipidemia Heart disease Social History Smoking and tobacco status: never smoked Second hand smoke exposure: No Smoking risk assessment/counseling performed?: No Alcohol intake: never Desire information about alcohol rehabilitation?: No Counseling given: No Desire information about substance/drug rehabilitation?: No Counseling given: No Caregiver/support person: No Lives independently: Yes Household members: spouse Housing: House Marital status: Number of children: 5 service: No Current occupational status: unemployed and retired History of recent travel: No Current gender identity: Female Vitals/I&O/Wt Last Vital Signs Temp 98.7 F 06/28/21 19:17 Pulse 101 H 06/28/21 23:37 Resp 17 06/28/21 22:55 BP 139/77 06/28/21 22:55 Pulse Ox 93 06/28/21 23:37 06/28/21 06/28/21 06/29/21 14:59 22:59 06:59 Intake Total 50 / 50 Balance 50 / 50 Weight last 48 hrs Weight 94.801 kg Physical Exam Narrative: General: -Alert -No acute distress -No dyspnea -No tachypnea Head: -Atraumatic -Normocephalic Eyes: -Pupils equally round and reactive to light and accommodation -Extraocular muscles intact Neurological: -Cranial nerves II-XII intact Neck: -No jugular venous distention -No thyromegaly -No cervical lymphadenopathy Heart: -Regular rate -Regular rhythm -No murmurs -No gallops -No rubs Lungs: -No wheeze -No rhonchi -No rales ? Abdomen: -Normal bowel sounds in all four quadrants -No rebound -No guarding -No tenderness Extremities: -2/4 pulse in all four extremities -No clubbing -No cyanosis -No edema -No calf tenderness present bilaterally -Negative Omar?s sign bilaterally Musculoskeletal: -5/5 bilateral upper extremity strength -5/5 bilateral lower extremity strength -Sensorium of bilateral upper extremities are equal and intact -Sensorium of bilateral lower extremities are equal and intact ? Additional Details / Additional Findings / Exceptions / Miscellaneous: Data : 06/28/21 19:38 06/28/21 21:35 A&P Assessment and plan (1) Hypoxemia: Status: Acute Plan Pneumonia. Azithromycin 500 Mill grams IV daily plus Rocephin 1 g IV daily plus DuoNeb every 6 hours Hypokalemia. Will monitor potassium level intermittently and supplement as necessary. Telemetry monitoring Obstructive sleep apnea. CPAP/BiPAP: Okay to use home device and/or pressure when sleeping if the patient uses CPAP/BiPAP at home History of CVA Gout Elevated troponin. Likely sequelae of hypoxia due to pneumonia. Will monitor patient on telemetry and checks her cardiac enzymes. Recheck EKG on the morning of June 29, 2021 Anxiety History of vitamin D deficiency CHF, last echocardiogram demonstrated preserved ejection fraction. Strict I/O. Daily weight. Diabetes. Will check fasting glucose Fortunato at at bedtime and provide insulin sliding scale Hyper lipemia Hypertension Obesity. The patient becomes regarding lifestyle modification Elevated liver function test. Will monitor LFTs periodically with CMP. We see no normalization, we may consider checking right upper quadrant ultrasound IBS DVT Proflex is. Heparin 5000 units subcu tensely every 12 hours Attestations Medical Necessity Statement*: Anticipate length of stay is greater than 2 midnights for treatment of her pneumonia Coding Level of Care Code Acute Body Specialist for [facility] Diagnoses Hypoxemia R09.02
[2021-06-29] VITALS (17 sets, daily range): BP systolic 93–157; BP diastolic 56–77; PULSE 86–136; RESP 13–18; TEMP 36.9–37.7; O2SAT 90–98
[2021-06-29 00:09] LABS: Adenovirus Not Detected (NOT DETECT); Chlamydia Pneumoniae Not Detected (NOT DETECT); Coronavirus 229E,HKU1,NL63,OC4 Not Detected (NOT DETECT); Human Metapneumovirus Not Detected (NOT DETECT); Human Rhinovirus/Enterovirus Not Detected (NOT DETECT); Influenza A Not Detected (NOT DETECT); Influenza A H1 Not Detected (NOT DETECT); Influenza A H1-2009 Not Detected (NOT DETECT); Influenza A H3 Not Detected (NOT DETECT); Influenza B Not Detected (NOT DETECT); Mycoplasma Pneumoniae Not Detected (NOT DETECT); Parainfluenza Virus Type 1 Not Detected (NOT DETECT); Parainfluenza Virus Type 2 Not Detected (NOT DETECT); Parainfluenza Virus Type 3 Not Detected (NOT DETECT); Parainfluenza Virus Type 4 Not Detected (NOT DETECT); Respiratory Syncytial Virus A Not Detected (NOT DETECT); Respiratory Syncytial Virus B Not Detected (NOT DETECT); SARS-COV-2 Not Detected (NOT DETECT)
[2021-06-29 00:13] LABS: Results from Genmark
[2021-06-29] MEDS: potassium chloride premix 100 ML 25 MEQ IV (00:40)
[2021-06-29] MEDS: sodium chloride 0.9% 500 ML 999 ML IV (00:40)
[2021-06-29] MEDS: heparin 5,000 unit/mL INJ 1 mL 5000 UNIT SUBCUT ×2 (00:47→12:57)
--- NOTE | 2021-06-29 01:35 | ECG_ITS ---
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 Measurements Intervals [place] Rate: 88 P: 37 NH: 178 QRS: 3 QRSD: 96 T: 28 QT: 341 QTc: 413 Interpretive Statements SINUS RHYTHM WITH OCCASIONAL SUPRAVENTRICULAR PREMATURE COMPLEXES LOW QRS VOLTAGE IN PRECORDIAL LEADS [QRS DEFLECTION < 1.0 mV IN CHEST LEADS] POSSIBLE ANTERIOR MYOCARDIAL INFARCTION , PROBABLY OLD [30 ms Q WAVE IN V3/V4, OR R < 0.2 mV IN V4] Compared to ECG 06/28/2021 22:32:57 Myocardial infarct finding now present Atrial fibrillation no longer present Ventricular premature complex(es) no longer present Aberrant conduction of supraventricular beat(s) no longer present ST (T wave) deviation no longer present Electronically Signed On 06-29-2021 17:32:19 CDT by Nikunj Milan M.D. [id number]
[2021-06-29 02:42] LABS: Basophils # 0.1 10^3/uL (0.0-0.1); Basophils % 0.4 %; Eosinophils % 0.2 %; Hematocrit 35.8 % (37.0-47.0); Hemoglobin 11.7 g/dL (11.5-15.3); Lymphocytes # 0.9 10^3/uL (0.8-4.8); Lymphocytes % 6.4 %; Mean Corpuscular HGB Conc 32.7 g/dL (30.0-36.0); Mean Corpuscular Hemoglobin 28.3 pg (28.0-34.0); Mean Corpuscular Volume 86.5 fl (81-99); Mean Platelet Volume 10.8 fL (7.4-10.4); Monocytes # 1.2 10^3/uL (0.2-0.9); Monocytes % 8.1 %; Neutrophils % 84.3 %; Nucleated Red Blood Cells % 0 %; Platelet Count 269 10^3/cmm (130-400); Red Blood Count 4.14 10^6/uL (4.1-5.3); White Blood Count 14.1 10^3/uL (4.0-10.0)
[2021-06-29 03:02] LABS: Alanine Aminotransferase 10 U/L (0-33); Albumin Level 3.2 g/dL (3.5-5.2); Alkaline Phosphatase 113 IU/L (35-105); Anion Gap 16.5 (5-19); Aspartate Amino Transferase 28 U/L (0-32); Blood Urea Nitrogen 13 mg/dL (8-23); Calcium 9.2 mg/dL (8.5-10.5); Carbon Dioxide 21 mmol/L (22-29); Chloride 102 mmol/L (98-107); Globulin 3.9 g/dL (1.3-4.6); Glucose 162 mg/dL (65-115); Osmolality Calculated 286 mOsm/kg (285-295); Potassium 3.5 mmol/L (3.5-5.1); Sodium 136 mmol/L (136-145); Total Bilirubin 0.8 mg/dL (0.15-1.2); Total Protein 7.1 g/dL (6.6-8.7); Troponin 5 6HR 22.08 ng/L (0-10)
[2021-06-29 03:07] LABS: Troponin 5 6HR Delta 1.08 ng/L (0-12)
[2021-06-29] MEDS: ipratropium-albuterol 3 mL Neb INHALATION ×4 (03:38→20:47)
[2021-06-29] MEDS: potassium chloride ER 20 mEq Tablet 40 MEQ PO (04:01)
[2021-06-29 06:32] LABS: Glucose Point of Care 123 mg/dL (70-110)
[2021-06-29 11:52] LABS: Glucose Point of Care 140 mg/dL (70-110)
--- NOTE | 2021-06-29 14:27 | PC.CHAP ---
Pastoral Care Encounter/Spiritual Assessment Type of Contact [] Declined pattern hand visit [] Patient/Family/Request visit [] Outpatient visit [] Follow-up visit [] Physician referral [] Code/Alert [X] Routine visit [] Staff referral [] Actively dying [] Patient sleeping [] Family support [] [] Out of room [] Palliative care [] [] Receiving care in room [] Pre-surgical visit [] Trauma [] Long length of stay [] ICU visit [] Other: Relational/Emotional Strength [X] Patient feels connected with others/family/visitors/staff [] Distress [] Loneliness/isolation [] Abandonment Spirituality of Patient [X] Person of Claribel [] Attends Rastafarian of their Claribel [X] Believes in Prayer [] Reads Bible or Catholic materials [] There are Spiritual issues to be addressed Bone Worker Interventions [X] Prayer [X] Active listening [X] Non-anxious presence [X] Spiritual/emotional support [] Crisis/trauma care [] Spiritual counseling [] Bereavement support [] Provided bereavement packet [] Provided Bible/devotional materials [] Provided toy/stuffed animal, coloring book to patient or family member [] Provided Communion [] Anointing/[place] [] Salvation [X] Completed spiritual assessment [] Other: Impact on Illness or Injury [] Angry [] Fearful [] Anxious [] Often cries [] Exhaustion [] Unable to work [] Unable to attend mormon [] Unable to walk/stand [] Unable to read [] Unable to drive [] Unable to eat/drink [] Unable to sleep [] Unable to be with family [] Patient intubated [] Other: Summary Time spent with patient 15 MIN
--- NOTE | 2021-06-29 14:55 | USCV_ITS ---
Danya Reed Age: 75 Gender: F : 1945 Exam Date: 06/29/2021 16:28 Ordering Phys: Tenisha Rodriguez MD Technologist: RICHARD Exam Location: [facility] [place] Indication: SHORTNESS OF BREATH BP: 157 / 77 HR: 107 Rhythm: Atrial fibrillation Technical Quality: Adequate MEASUREMENTS (Male / Female) Normal Values 2D ECHO LV Diastolic Diameter PLAX 3.8 cm 4.2 - 5.9 / 3.9 - 5.3 cm LV Systolic Diameter PLAX 2.6 cm IVS Diastolic Thickness 1.3 cm 0.6 - 1.0 / 0.6 - 0.9 cm IVS Systolic Thickness 1.4 cm LVPW Diastolic Thickness 1.3 cm 0.6 - 1.0 / 0.6 - 0.9 cm LVPW Systolic Thickness 1.3 cm LVOT Diameter 2.0 cm LV Ejection Fraction 2D Teich 61.6 % LV Ejection Fraction MOD 2C 58.9 % LV Ejection Fraction 2C AL 61.6 % LA Diameter 3.8 cm LA Width 3.1 cm LA Height 6.4 cm RA Width 2.8 cm RA Height 4.8 cm Aorta at Sinotubular Diameter 2.5 cm IVC Diameter 1.2 cm M-MODE Aortic Annulus Diameter 2.5 cm LA Ao Ratio MM 1.3 DOPPLER AV Peak Velocity 145.0 cm/s LVOT Peak Velocity 102.0 cm/s AV Area Cont Eq vti 2.4 cm squared AV Area Cont Eq pk 2.3 cm squared MV Peak Velocity 182.0 cm/s MV Area PHT 4.5 cm squared MV E' Velocity 93.5 cm/s Mitral E to MV E' Ratio 12.9 Mitral E to LV E' Lateral Ratio 10.8 Mitral E to LV E' Septal Ratio 16.3 TV Peak E Velocity 42.0 cm/s Right Atrial Pressure 3.0 mmHg PV Peak Velocity 95.0 cm/s RV Acceleration Time 0.1 s RV Ejection Time 0.3 s RV AcT/ET 0.4 FINDINGS Left Ventricle Normal left ventricular cavity size. Mildly increased left ventricular wall thickness. Normal left ventricular systolic function. Left ventricular ejection fraction is estimated at 70 %. No diagnostic regional wall motion abnormalities. Right Ventricle Probably upper normal right ventricular size with low normal right ventricular systolic function Right Atrium Right atrium not well visualized. Left Atrium Mildly increased left atrial size. Mitral Valve Structurally normal mitral valve. No mitral valve stenosis. No mitral valve regurgitation. Aortic Valve Aortic valve not well visualized. No aortic valve stenosis. No aortic valve regurgitation. Tricuspid Valve Structurally normal tricuspid valve. No tricuspid valve stenosis. Trace to mild tricuspid valve regurgitation. Pulmonic Valve Pulmonic valve not well visualized. No pulmonary valve stenosis. Pericardium Moderate circumferential pericardial effusion. Pericardial effusion measured anteriorly at 15 mm and posteriorly at 12 mm. No evidence of hemodynamic compromise based on the study. Aorta Normal size aortic root. Normal-sized inferior vena cava with normal respiratory variation. CONCLUSIONS 1. This is a technically difficult study. 2. Normal left ventricular cavity size and systolic function. Mildly increased left ventricular wall thickness. Left ventricular ejection fraction is estimated at 70 %. No diagnostic regional wall motion abnormalities. 3. Moderate circumferential pericardial effusion. Pericardial effusion measured anteriorly at 15 mm and posteriorly at 12 mm. No evidence of hemodynamic compromise based on the study. 4. When compared to previous echocardiogram dated 07/08/2019, pericardial effusion has increased in size. Amarilys Skinner MD (Electronically Signed) Final Date: 29 Jun 2021 18:56 S
--- NOTE | 2021-06-29 15:01 | PM.PN ---
Subjective Subjective: This AM. Family available at bedside. Daughter and present. Patient states that she was diagnosed with pneumonia outpatient and she was given antibiotics Augmentin which she did not start yet. She was also prescribed an oxygen tank which she did not receive and because she had shortness of breath she came to the ER. This morning she is on 4 L nasal cannula. She does not have a known history of heart failure that she can tell me. Patient has never been on oxygen before. She also reports chronic diarrhea that she has had for years which has worsened recently. She states he has had been having bowel incontinence and going up to 15 times a day. She has used several depends. Diarrhea is completely watery and she is unable to hold it. Denies a fever. Vitals/I&O/Wt Last Vital Signs Temp 98.5 F 06/29/21 11:37 Pulse 104 H 06/29/21 14:41 Resp 18 06/29/21 14:33 BP 129/77 06/29/21 11:37 Pulse Ox 97 06/29/21 14:33 06/29/21 06/29/21 06/29/21 06:59 14:59 22:59 Intake Total 850 / 900 480 / 480 Balance 850 / 900 480 / 480 Weight last 48 hrs Weight 94.801 kg Physical Exam Narrative: General: Alert oriented x3, patient seen sitting up in bed appearing comfortable on 4L nasal cannula no acute respiratory distress. Only present at bedside. HEENT: Normocephalic, atraumatic, EOMI, Cardio: Regular rate rhythm, normal S1-S2, no murmurs unable to assess JVD due to large body habitus Respiratory: Bibasilar crackles present, rest clear to auscultation no wheezes no rhonchi. GI: Abdomen soft, nontender, large obese rounded abdomen, bowel sounds + Extremities: Trace edema bilateral lower extremities, surgical scar present around left ankle. Data : 06/29/21 02:21 06/29/21 02:21 A&P Assessment and plan (1) Hypoxemia: Status: Acute (2) Pneumonia: Status: Acute (3) CHF (congestive heart failure): Status: Acute (4) Irritable bowel syndrome with diarrhea: Status: Chronic (5) History of CVA (cerebrovascular accident): Status: Chronic (6) BRIONES (dyspnea on exertion): Status: Acute (7) Sleep apnea: Status: Acute (8) BMI 37.0-37.9, adult: Status: Chronic (9) Diabetes mellitus: Status: Chronic Qualifiers: Diabetes mellitus residential insulin use: without ad terminal makeup operator use Diabetes mellitus type: type 2 Diabetes mellitus complication status: with hyperglycemia Qualified Code(s): E11.65 - Type 2 diabetes mellitus with hyperglycemia (10) Hypertension: Status: Chronic Qualifiers: Hypertension type: primary hypertension Qualified Code(s): I10 - Essential (primary) hypertension Plan #Pneumonia, diagnosed outpatient?infiltrate versus atelectasis present on x-ray #CHF exacerbation, cardiomegaly on x-ray, BNP elevated, no prior diagnosis #Chronic diarrhea, acutely worsened #Hypertension #Hypokalemia #LINH on CKD #Oxygen dependent now, new diagnosis #Leukocytosis secondary to pneumonia ? I will check CT chest without contrast ? Check procalcitonin ? Continue ceftriaxone azithromycin ? Start Lasix 40 IV daily ? Check echocardiogram ? C. difficile sample, stool culture ? Replete electrolytes ? Hopefully LINH will improve with diuresis. Possible cardiorenal syndrome. Clinically patient does appear fluid overloaded. ? Continue antihypertensives ? Discontinue IV fluids placed on admission ? Continue all other home medications Full code All questions answered. Family updated at bedside. Attestations Medical Necessity Statement*: Will need IV diuresis and treatment of possible pneumonia inpatient. Expect 48-hour stay. 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
[2021-06-29] MEDS: FUROsemide 10 mg/mL SDV 4mL 40 MG IVP (16:18)
[2021-06-29 17:03] LABS: Procalcitonin 0.12 ng/mL (0-0.5)
[2021-06-29 17:11] LABS: Glucose Point of Care 139 mg/dL (70-110)
--- NOTE | 2021-06-29 18:00 | ECG_ITS ---
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 Measurements Intervals [place] Rate: 96 P: 58 NE: 172 QRS: -16 QRSD: 80 T: 43 QT: 331 QTc: 419 Interpretive Statements SINUS RHYTHM LOW QRS VOLTAGE IN PRECORDIAL LEADS [QRS DEFLECTION < 1.0 mV IN CHEST LEADS] POSSIBLE ANTERIOR MYOCARDIAL INFARCTION , PROBABLY OLD [30 ms Q WAVE IN V3/V4, OR R < 0.2 mV IN V4] Compared to ECG 06/29/2021 00:33:13 No significant changes Electronically Signed On 06-29-2021 22:57:35 CDT by Nikunj Milan M.D. [id number]
--- NOTE | 2021-06-29 20:33 | PC.NURSE ---
i reported high temp 99.8 to nurse
[2021-06-29 21:13] LABS: Glucose Point of Care 135 mg/dL (70-110)
[2021-06-29] MEDS: metoprolol tartrate 1 mg/1 mL SDV 5 mL 10 MG IVP (21:33)
[2021-06-30] VITALS (17 sets, daily range): BP systolic 104–170; BP diastolic 61–109; PULSE 72–107; RESP 14–18; TEMP 36.7–37.1; O2SAT 87–98
[2021-06-30] MEDS: azithromycin 500 MG in sodium chloride 0.9% 250 ML 250 MG IV (00:05)
[2021-06-30] MEDS: heparin 5,000 unit/mL INJ 1 mL 5000 UNIT SUBCUT ×3 (00:05→23:34)
[2021-06-30] MEDS: cefTRIAXone 1,000 MG in sodium chloride 0.9% (plus) 50 ML 100 MG IV (01:38)
[2021-06-30] MEDS: ipratropium-albuterol 3 mL Neb INHALATION ×4 (03:55→20:29)
[2021-06-30 04:58] LABS: Basophils # 0.1 10^3/uL (0.0-0.1); Basophils % 0.6 %; Eosinophils # 0.1 10^3/uL (0.0-0.8); Eosinophils % 0.9 %; Hematocrit 41.1 % (37.0-47.0); Hemoglobin 12.9 g/dL (11.5-15.3); Lymphocytes # 2.2 10^3/uL (0.8-4.8); Lymphocytes % 15.7 %; Mean Corpuscular HGB Conc 31.4 g/dL (30.0-36.0); Mean Corpuscular Volume 89.3 fl (81-99); Mean Platelet Volume 10.1 fL (7.4-10.4); Monocytes % 6.9 %; Neutrophils # 10.43 10^3/uL (1.8-7.7); Neutrophils % 75.3 %; Nucleated Red Blood Cells % 0 %; Platelet Count 331 10^3/cmm (130-400); Red Cell Distribution Width 14.3 % (12.1-15.1); White Blood Count 13.9 10^3/uL (4.0-10.0)
[2021-06-30 05:27] LABS: Anion Gap 17.6 (5-19); Blood Urea Nitrogen 13 mg/dL (8-23); Calcium 9.5 mg/dL (8.5-10.5); Carbon Dioxide 20 mmol/L (22-29); Chloride 105 mmol/L (98-107); Glucose 119 mg/dL (65-115); Osmolality Calculated 289 mOsm/kg (285-295); Potassium 3.6 mmol/L (3.5-5.1); Sodium 139 mmol/L (136-145)
[2021-06-30 06:44] LABS: Glucose Point of Care 101 mg/dL (70-110)
--- NOTE | 2021-06-30 08:16 | PM.PN ---
Subjective Subjective: Seen this morning. All her home medications have been restarted. Echocardiogram reviewed. Patient states she is feeling better. Oxygen has come down from 4 L to 2 L. However she is requiring oxygen still. Patient states that she had rheumatic fever as a child and also had state via stents. She states she almost . She also goes on to tell me that she has had fluid drained around her heart before but after discussing with her it seems she was discussing a thoracentesis as opposed to a pericardial drainage. She continues to have diarrhea and is wearing depends. Stool sample has been sent to lab already. Vitals/I&O/Wt Last Vital Signs Temp 98.7 F 06/30/21 07:41 Pulse 106 H 06/30/21 07:41 Resp 15 06/30/21 07:41 BP 170/109 06/30/21 07:41 Pulse Ox 93 06/30/21 07:41 06/29/21 06/30/21 06/30/21 22:59 06:59 14:59 Intake Total 240 / 720 300 / 1020 Output Total 1880 / 1880 Balance 240 / 720 -1580 / -860 Weight last 48 hrs Weight 94.801 kg Physical Exam Narrative: General: Alert oriented x3, patient seen sitting up in bed appearing comfortable on 2L nasal cannula no acute respiratory distress.? Only present at bedside. HEENT: Normocephalic, atraumatic, EOMI, Cardio: Regular rate rhythm, normal S1-S2, mildly elevated JVD Respiratory: Clear to auscultation bilaterally, no wheezes no rhonchi present today. GI: Abdomen soft, nontender, large obese rounded abdomen, bowel sounds + Extremities: Trace edema bilateral lower extremities, surgical scar present around left ankle. ? Urinary Catheter Management: Lynn: Cath Placed During This Visit: yes Reason for Continuing Indwelling Catheter: Other Urinary Catheter Date of Insertion: 06/29/21 Urinary Catheter Time of Insertion: 17:31 Data : 06/30/21 04:41 06/30/21 04:41 Micro: Microbiology 06/29/21 18:40 C.difficile Toxin B Gene (PCR) - Final Stool Routine Collection 06/29/21 18:40 Stool Lactoferrin - Final Stool A&P Assessment and plan (1) Hypoxemia: Status: Acute (2) CHF (congestive heart failure): Status: Acute (3) Pneumonia: Status: Acute (4) History of CVA (cerebrovascular accident): Status: Chronic (5) Rhinitis: Status: Chronic Plan #Multi-lobar Pneumonia #CHF exacerbation, cardiomegaly on x-ray, BNP elevated, no prior diagnosis #Chronic diarrhea, acutely worsened #Hypertension #Hypokalemia #LINH on CKD #Oxygen dependent now, new diagnosis #Leukocytosis secondary to pneumonia ? CT chest without contrast complete. Multilobar irregular shaped pulmonary opacifications. Differential includes pneumonitis and pneumonia. Recommend follow-up to resolution to be sure there is no underlying neoplasm. Areas of atelectasis are also present. Left adrenal myolipoma also present. ? Procalcitonin is negative. Patient denies a cough or increase sputum production. We will discuss CT findings with pulmonology. They recommend f/u outpatient to ensure resolution of infiltrates and repeat CT in 6 weeks time. Imaging was reviewed by assessment technician. Possibility of micro-aspiration. Will continue antibiotics for 10 days at discharge with augmentin 875 BID. Refer to pulm at discharge to be seen in 1 month. ? Echo completed. LVEF and systolic function normal. EF is 70%. Mildly increased left ventricular thickness. No diagnostic regional wall motion abnormalities. Moderate circumferential pericardial effusion present. Anteriorly 15 mm and posteriorly 12 mm. No evidence of hemodynamic compromise based on study. When compared to previous echo 2020 pericardial effusion has increased in size. ? Findings were discussed with cardiology. We will consult them. There is no evidence of tamponade and patient is hemodynamically stable. ? Continue Lasix 40 IV daily. ? C. difficile sample, stool culture ? Replete electrolytes ? Creatinine improved from 1.2-1 today. We will continue Lasix for now. ? Continue antihypertensives ? Continue all other home medications - Home o2 frank at discharge. Full code All questions answered.? Family updated at bedside. Attestations Medical Necessity Statement*: Patient requires cardiology consult today for pleural effusion. She also needs further diuresis. She will need to stay in the hospital for IV Lasix. Coding Level of Care Code Acute [place] [employer] Turner for [facility] Fwd Diagnoses Hypoxemia R09.02 CHF (congestive heart failure) I50.9 Pneumonia J18.9 History of CVA (cerebrovascular accident) Z86.73 Rhinitis J31.0
[2021-06-30] MEDS: metoprolol succinate ER (24 HR) 50 mg Tablet PO (08:58)
[2021-06-30] MEDS: amlodipine 10 mg Tablet PO (08:58)
[2021-06-30] MEDS: losartan 50 mg Tablet 150 MG PO (08:58)
[2021-06-30] MEDS: duloxetine 20 mg Capsule PO ×2 (08:58→17:35)
[2021-06-30] MEDS: isosorbide mononitrate ER 30 mg Tablet PO ×2 (08:58→17:35)
[2021-06-30] MEDS: atorvastatin 40 mg Tablet PO (08:59)
[2021-06-30] MEDS: ampicillin-sulbactam 3 GM in sodium chloride 0.9% (plus) 50 ML IV ×3 (12:40→23:28)
--- NOTE | 2021-06-30 13:39 | PM.CONSULT ---
Providers/Reason For Consult Consulting Physician/Specialty*: ALEJA Hassan MD/cardiology Reason for Consult*: Patient with shortness of breath and pericardial effusion Requesting Physician: Dr Rodriguez Attending Physician: Tenisha Rodriguez MD Primary Care Provider: NA Major History of Present Illness History of Present Illness Danya Reed is a 75 year old female with multiple medical problems, is presenting with complaints of progressive shortness of breath and leg swelling. She was found to have moderate pericardial effusion by echocardiogram. Cardiology consult is requested for further cardiac evaluation recommendations. The patient has been in her baseline state of health up until 2 weeks ago when she started having increasing shortness of breath. She started noticing swelling of the lower extremities a month ago. These symptoms are gradually getting worse. She may have occasional tight feeling in the chest. Also has been having a dry cough and low-grade fever. No palpitation or syncopal episodes. Has been having episodes of dizziness. She has a history of hypertension, type 2 diabetes, dyslipidemia, sleep apnea, chest pain and shortness of breath. She also has a history of pericardial effusion and pleural effusion. She had a thoracentesis multiple times in the past. Details of this are not available. She used to be see plaster caster here in this hospital many years ago. Those records are not available at this time. The etiology of the pleural effusion and pericardial effusion are not known at this point. Also has a history of CVAs x3. She used to be followed by a neurologist. Has not had any recent evaluation. She is having problems with memory as per her daughter. No documented history for coronary artery disease or myocardial infarction Medications/Allergies Home Medications Medication Instructions Recorded Confirmed Last Taken Type nitroglycerin 0.4 mg sublingual 0.4 mg SUBLINGUAL Q5M PRN #25 tab 05/22/19 06/29/21 Unknown Rx tablet (Nitrostat) amlodipine 10 mg tablet 10 mg PO DAILY #90 tab 03/05/21 06/29/21 Unknown Rx duloxetine 20 mg capsule,delayed 20 mg PO BID #60 cap 04/26/21 06/29/21 Unknown Rx release (Cymbalta) isosorbide mononitrate 30 mg 30 mg PO BID #60 tab 04/26/21 06/29/21 Unknown Rx tablet,extended release 24 hr torsemide 10 mg tablet 10 mg PO QAM #30 tab 04/26/21 06/29/21 Unknown Rx amoxicillin 500 mg-potassium 1 tab PO Q12H #14 tab 06/28/21 06/29/21 Unknown Rx clavulanate 125 mg tablet (Augmentin) allopurinol 100 mg tablet 100 mg PO DAILY PRN 06/29/21 06/29/21 Unknown History aspirin 81 mg tablet,delayed 81 mg PO .THREE TIMES A WEEK 06/29/21 06/29/21 Unknown History release atorvastatin 40 mg tablet 40 mg PO DAILY 06/29/21 06/29/21 Unknown History furosemide 40 mg tablet (Lasix) 80 mg PO .DAILY FOR 3 DAYS 06/29/21 06/29/21 Unknown History losartan 100 mg tablet 150 mg PO DAILY 06/29/21 06/29/21 Unknown History metoprolol succinate 50 mg 50 mg PO DAILY 06/29/21 06/29/21 Unknown History tablet,extended release 24 hr potassium chloride 10 mEq 10 meq PO DAILY 06/29/21 06/29/21 Unknown History tablet,extended release semaglutide (Ozempic) 0.25 mg SUBCUT Q7D 06/29/21 06/29/21 06/21/21 History Allergies Allergy/AdvReac Type Severity Reaction Status Date / Time acetaminophen [From Vicodin] Allergy Unknown Verified 06/28/21 09:56 hydrocodone [From Vicodin] Allergy Unknown Verified 06/28/21 09:56 salsalate Allergy Unknown Verified 06/28/21 09:56 Tetracyclines Allergy Unknown Verified 06/28/21 09:56 Current Medications Generic Name Dose Route Start Last Admin Trade Name Freq PRN Reason Stop Dose Admin Albuterol/Ipratropium 3 ml 06/29/21 03:00 06/30/21 08:27 Ipratropium-Albuterol 3 Ml Neb INHALATION 3 ml Q6H.RESPIRATORY JESSICA Administration Amlodipine Besylate 10 mg 06/30/21 09:00 06/30/21 08:58 Amlodipine 10 Mg Tablet PO 10 mg DAILY JESSICA Administration Atorvastatin Calcium 40 mg 06/30/21 09:00 06/30/21 08:59 Atorvastatin 40 Mg Tablet PO 40 mg DAILY JESSICA Administration Duloxetine HCl 20 mg 06/30/21 09:00 06/30/21 08:58 Duloxetine 20 Mg Capsule PO 20 mg BID JESSICA Administration Furosemide 40 mg 06/29/21 15:00 06/29/21 16:18 Furosemide 10 Mg/Ml Sdv 4ml IVP 40 mg Q24H JESSICA Administration Heparin Sodium (Porcine) 5,000 unit 06/29/21 00:02 06/30/21 12:46 Heparin 5,000 Unit/Ml Inj 1 Ml SUBCUT 5,000 unit Q12H JESSICA Administration Ampicillin Sodium/Sulbactam 50 mls @ 100 mls/hr 06/30/21 12:00 06/30/21 12:40 Sodium 3 gm/ Sodium Chloride IV 100 mls/hr Q6H JESSICA Administration Protocol Insulin Human Lispro 0 unit 06/29/21 08:00 06/30/21 12:38 Insulin Lispro 100 Unit/1 Ml SUBCUT Not Given WM&BEDTIME JESSICA Protocol Isosorbide Mononitrate 30 mg 06/30/21 09:00 06/30/21 08:58 Isosorbide Mononitrate Er 30 Mg Tablet PO 30 mg BID JESSICA Administration Losartan Potassium 150 mg 06/30/21 09:00 06/30/21 08:58 Losartan 50 Mg Tablet PO 150 mg DAILY JESSICA Administration Metoprolol Succinate 50 mg 06/30/21 09:00 06/30/21 08:58 Metoprolol Succinate Er (24 Hr) 50 Mg Tablet PO 50 mg DAILY JESSICA Administration PFSH Acute PFSH: Medical History Anxiety BMI 37.0-37.9, adult Chest pressure CHF (congestive heart failure) Dyslipidemia Gout History of CVA (cerebrovascular accident) Hypertension Irritable bowel syndrome with diarrhea Obesity Radiculopathy, lumbosacral region Sleep apnea Vitamin D insufficiency Surgical History History of colonoscopy 2014 History of tubal ligation 1974 Family History Mother Hyperlipidemia Heart disease Social History Smoking and tobacco status: never smoked Second hand smoke exposure: No Smoking risk assessment/counseling performed?: No Alcohol intake: never Desire information about alcohol rehabilitation?: No Counseling given: No Desire information about substance/drug rehabilitation?: No Counseling given: No Caregiver/support person: No Lives independently: Yes Household members: spouse Housing: House Marital status: Number of children: 5 service: No Current occupational status: unemployed and retired History of recent travel: No Current gender identity: Female Vitals/I&O/Wt Last Vital Signs Temp 98.6 F 06/30/21 11:48 Pulse 107 H 06/30/21 11:48 Resp 14 06/30/21 11:48 BP 152/93 06/30/21 11:48 Pulse Ox 93 06/30/21 11:48 06/29/21 06/30/21 06/30/21 22:59 06:59 14:59 Intake Total 240 / 720 300 / 1020 600 / 600 Output Total 1880 / 1880 Balance 240 / 720 -1580 / -860 600 / 600 Weight last 48 hrs Weight 209 lb Physical Exam Narrative: GENERAL: The patient is alert and oriented times three. Not in any acute distress. Slightly tachypneic, breathing rate of 18/min. HEENT: No significant pallor, icterus or lymphadenopathy. The pupils are reactant to light. Oral cavity: There are no mucous membrane lesions. Funduscopic examination: Fundus is not visualized. NECK: Trachea appears to be central. No masses noted. No JVD or thyromegaly appreciated. No carotid bruit. RESPIRATORY: Chest is symmetrical. No intercostals muscle retraction or any accessory muscle activation. There is no chest wall tenderness. Breath sounds are heard bilaterally. Scattered coarse crackles and occasional expiratory wheezing. The intensity of breath sounds are diminished in the bases BREASTS: Deferred. HEART: PMI could not be palpated. No other palpable precordial events. S1 and S2 are normal. No S3 or S4 heard. No pericardial rub or any click heard. ABDOMEN: No vessel pulsations or distention. No tenderness. No organomegaly appreciated. No abdominal bruit. Bowel sounds are normally heard. : Deferred. RECTAL: Deferred. LYMPHATIC: No lymphadenopathy noted in the neck or groin. EXTREMITIES: 2+ edema both lower extremities. No cyanosis. MUSCULOSKELETAL: No acute joint deformities or swelling SKIN: There are no significant scars or skin rash noted. NEUROPSYCHIATRIC: The patient is alert and oriented x3. Appears to be in a good mood. The higher functions are grossly within normal limits. No tremors or rigidity noted. Urinary Catheter Management: Lynn: Cath Placed During This Visit: yes Reason for Continuing Indwelling Catheter: Other Urinary Catheter Date of Insertion: 06/29/21 Urinary Catheter Time of Insertion: 17:31 Data : 06/30/21 04:41 06/30/21 04:41 Other Labs: Laboratory Last Values WBC 13.9 10^3/uL (4.0-10.0) H 06/30/21 04:41 RBC 4.60 10^6/uL (4.1-5.3) 06/30/21 04:41 Hgb 12.9 g/dL (11.5-15.3) 06/30/21 04:41 Hct 41.1 % (37.0-47.0) 06/30/21 04:41 MCV 89.3 fl (81-99) 06/30/21 04:41 MCH 28.0 pg (28.0-34.0) 06/30/21 04:41 MCHC 31.4 g/dL (30.0-36.0) 06/30/21 04:41 RDW 14.3 % (12.1-15.1) 06/30/21 04:41 Plt Count 331 10^3/cmm (130-400) 06/30/21 04:41 MPV 10.1 fL (7.4-10.4) 06/30/21 04:41 Neut % (Auto) 75.3 % 06/30/21 04:41 Lymph % (Auto) 15.7 % 06/30/21 04:41 [place] % (Auto) 6.9 % 06/30/21 04:41 Eos % (Auto) 0.9 % 06/30/21 04:41 Baso % (Auto) 0.6 % 06/30/21 04:41 Neut # (Auto) 10.43 10^3/uL (1.8-7.7) H 06/30/21 04:41 Lymph # (Auto) 2.2 10^3/uL (0.8-4.8) 06/30/21 04:41 [place] # (Auto) 1.0 10^3/uL (0.2-0.9) H 06/30/21 04:41 Eos # (Auto) 0.1 10^3/uL (0.0-0.8) 06/30/21 04:41 Baso # (Auto) 0.1 10^3/uL (0.0-0.1) 06/30/21 04:41 Nucleated RBC % (auto) 0 % 06/30/21 04:41 Nucleated RBCs # 0.0 /100WBC 06/30/21 04:41 Specimen Type Arterial 06/28/21 20:17 Sample Site Radial, left 06/28/21 20:17 ABG pH 7.48 (7.35-7.45) H 06/28/21 20:17 ABG pCO2 31.9 mmHg (35-45) L 06/28/21 20:17 ABG pO2 60.6 mmHg (80.0-100.0) L 06/28/21 20:17 ABG HCO3 23.7 mmol/L (22-26) 06/28/21 20:17 ABG Base Excess 0.7 mmol/L (-2.0-2.0) 06/28/21 20:17 Oc Test Pos 06/28/21 20:17 Hematocrit 39.8 % (37-47) 06/28/21 20:17 O2 Delivery Device Nc 06/28/21 20:17 O2 Liters/Min 3.5 % 06/28/21 20:17 Forestry Professor ID [place] 06/28/21 20:17 Sodium 139 mmol/L (136-145) 06/30/21 04:41 Potassium 3.6 mmol/L (3.5-5.1) 06/30/21 04:41 Chloride 105 mmol/L (98-107) 06/30/21 04:41 Carbon Dioxide 20 mmol/L (22-29) L 06/30/21 04:41 Anion Gap 17.6 (5-19) 06/30/21 04:41 BUN 13 mg/dL (8-23) 06/30/21 04:41 Creatinine 1.0 mg/dL (0.5-0.9) H 06/30/21 04:41 GFR Calculation Not Reportable 06/30/21 04:41 Glucose 119 mg/dL (65-115) H 06/30/21 04:41 POC Glucose 101 mg/dL (70-110) 06/30/21 06:35 Calculated Osmolality 289 mOsm/kg (285-295) 06/30/21 04:41 Calcium 9.5 mg/dL (8.5-10.5) 06/30/21 04:41 Total Bilirubin 0.8 mg/dL (0.15-1.2) 06/29/21 02:21 AST 28 U/L (0-32) 06/29/21 02:21 ALT 10 U/L (0-33) 06/29/21 02:21 Alkaline Phosphatase 113 IU/L (35-105) H 06/29/21 02:21 Troponin T Baseline 21 ng/L (0-10) H 06/28/21 19:38 Troponin T 120 Minute 18.64 ng/L (0-10) H 06/28/21 21:35 Delta Troponin T -2.36 ABS# (0-10) L 06/28/21 21:35 Troponin T Hi Sens 6Hr 22.08 ng/L (0-10) H 06/29/21 02:21 Troponin T Hi Sens 6Hr Delta 1.08 ng/L (0-12) 06/29/21 02:21 C-Reactive Protein 190.5 mg/L (0.0-4.9) H 06/28/21 21:35 NT-Pro-B Natriuret Pep 578 pg/mL (0-450) H 06/28/21 21:35 Total Protein 7.1 g/dL (6.6-8.7) 06/29/21 02:21 Albumin 3.2 g/dL (3.5-5.2) L 06/29/21 02:21 Globulin 3.9 g/dL (1.3-4.6) 06/29/21 02:21 Procalcitonin 0.12 ng/mL (0-0.5) 06/29/21 02:21 Nasal Influ A H1 2008 PCR Not detected (NOT DETECT) 06/28/21 19:54 Coronavirus 229E (PCR) Not detected (NOT DETECT) 06/28/21 19:54 Influenza A (H1) PCR Not detected (NOT DETECT) 06/28/21 19:54 Influenza A (H3) PCR Not detected (NOT DETECT) 06/28/21 19:54 Influenza Type A (PCR) Not detected (NOT DETECT) 06/28/21 19:54 Influenza Type B (PCR) Not detected (NOT DETECT) 06/28/21 19:54 SARS-CoV-2 (PCR) Not detected (NOT DETECT) 06/28/21 19:54 Micro: Microbiology 06/29/21 18:40 C.difficile Toxin B Gene (PCR) - Final Stool Routine Collection 06/29/21 18:40 Stool Lactoferrin - Final Stool Echo: My impression: Echocardiogram from 06/29/2021 1.? This is a technically difficult study. ?2.? Normal left ventricular cavity size and systolic function.? ?Mildly increased left ventricular wall thickness. Left ?ventricular ejection fraction is estimated at 70 %. No ?diagnostic regional wall motion abnormalities. ?3. Moderate circumferential pericardial effusion.? Pericardial ?effusion measured anteriorly at 15 mm and posteriorly at 12 mm.? ?No evidence of hemodynamic compromise based on the study. ?4. When compared to previous echocardiogram dated 07/08/2019, ?pericardial effusion has increased in size. EKG 1: My Interpretation: Normal sinus rhythm with a heart rate of 96 bpm. Poor R wave progression. Low voltage complexes in the precordial leads. EKG computer-generated impression: Chest X-Ray 06/28/21 19:28 IMPRESSION: 1. Cardiomegaly. 2. Bibasilar left greater than right atelectasis versus infiltrate. Chest CT 06/30/21 16:14 IMPRESSION: 1. Multilobar irregular shaped pulmonary opacifications. Differential includes pneumonitis and pneumonia. Recommend follow-up to resolution to be sure there is no underlying neoplasm. Additional areas of atelectasis are present. 2. Very small LEFT pleural effusion. 3. LEFT adrenal myelolipoma. 4. No adenopathy. 5. Small pericardial effusion. A&P Assessment and plan (1) Acute on chronic diastolic (congestive) heart failure: Most likely the current decompensation was precipitated with pneumonia/respiratory failure. She has normal LV ejection fraction. May be carefully treated with IV diuretics. We will consider doing a myocardial perfusion imaging, to rule out any coronary ischemia Status: Acute (2) Pericardial effusion: Patient has moderate pericardial effusion by echocardiogram. No evidence of any tamponade. Heart failure, pneumonia are contributing factors. Better this patient has a primary pericardial pathology or not is not clear at this time. Apparently she has a history of pericardial effusion. We may do a follow-up echocardiogram after appropriate diuresis to reevaluate the effusion. If there is no significant improvement in the effusion, need to consider a diagnostic as well as therapeutic tap Status: Acute (3) Pneumonia: Management as per the primary Status: Acute (4) Dyslipidemia: Status: Chronic (5) History of CVA (cerebrovascular accident): Currently the patient has no residual motor weakness. If she has not had a carotid duplex lamination recently, we may go ahead and do 1. Status: Chronic (6) Diabetes mellitus: Aggressive management would be appropriate. Status: Chronic Qualifiers: Diabetes mellitus senior living insulin use: without remote computer terminal operator use Diabetes mellitus type: type 2 Diabetes mellitus complication status: with hyperglycemia Qualified Code(s): E11.65 - Type 2 diabetes mellitus with hyperglycemia (7) Hypertension: Currently normotensive. May continue on the current medications. Status: Chronic Qualifiers: Hypertension type: primary hypertension Qualified Code(s): I10 - Essential (primary) hypertension Plan Based on the patient's clinical progress and the results of the above, further recommendations will be made. Thank you for the opportunity to evaluate this patient make these recommendation Consult Attestations Medical Necessity Statement: Patient requires continued hospital stay for close monitoring and further management Coding Level of Care Code Acute Market Research Specialist for [facility] Fwd History Detailed Exam Detailed Medical Decision Making High Complexity Diagnoses Acute on chronic diastolic (congestive) heart failure I50.33 Pericardial effusion I31.3 Pneumonia J18.9 Dyslipidemia E78.5 History of CVA (cerebrovascular accident) Z86.73 Diabetes mellitus E11.65 Diabetes mellitus senior living insulin use: without remote computer terminal operator use Diabetes mellitus type: type 2 Diabetes mellitus complication status: with hyperglycemia Hypertension I10 Hypertension type: primary hypertension
[2021-06-30] MEDS: FUROsemide 10 mg/mL SDV 4mL 40 MG IVP (15:08)
--- NOTE | 2021-06-30 16:14 | CT_ITS ---
WS: [id number] CT CHEST WITHOUT INTRAVENOUS CONTRAST HISTORY: rule out pneumonia, pt has sob TECHNIQUE: Contiguous 5 mm axial imaging performed on the thorax. Coronal and sagittal reformats are submitted. All CT scans at [facility] use at least one of these dose optimization techniques: automated exposure control; mA and/or kV adjustment per patient size (includes targeted exams where dose is matched to clinical indication); or iterative reconstruction. CONTRAST: None DLP: 758.92 mGy.cm COMPARISON: Radiograph 06/28/2021 Lungs and central airway: Lung volumes are slightly decreased due to poor inspiration. Patchy areas o f irregular opacification noted in multiple lobes. Irregular opacification along the inferior RIGHT u pper lobe. Additional multiple bilateral irregular opacifications at the lung bases. There are also a reas of atelectasis. No pneumothorax. Pleura: Very small LEFT pleural effusion. Heart and pericardium: Cardiac chambers are mildly enlarged. Mild pericardial thickening and a small effusion. Mediastinum and florence: No mediastinum or hilar adenopathy. Vessels: Atherosclerosis aorta. No aneurysm. Normal size pulmonary artery. Chest wall and lower neck: No soft tissue masses. Upper abdomen: Stomach is distended with food products. LEFT adrenal fat-containing mass measures 3.1 x 3.5 cm. Normal RIGHT adrenal gland. Mild atherosclerosis suprarenal aorta. Osseous structures: [address]/CT chest wo con [id number] IMPRESSION: 1. Multilobar irregular shaped pulmonary opacifications. Differential includes pneumonitis and pneumonia. Recommend follow-up to resolution to be sure there is no underlying neoplasm. Additional areas of atelectasis are present. 2. Very small LEFT pleural effusion. 3. LEFT adrenal myelolipoma. 4. No adenopathy. 5. Small pericardial effusion.
[2021-06-30 17:30] LABS: Glucose Point of Care 119 mg/dL (70-110)
[2021-06-30 17:30] LABS: Glucose Point of Care 135 mg/dL (70-110)
--- NOTE | 2021-06-30 19:19 | USCV_ITS ---
Danya Reed Age: 75 Gender: F : 1945 Exam Date: 06/30/2021 22:29 Ordering Phys: Seble Hassan MD ([email or web address]) Technologist: HUMBLE Exam Location: [facility] – [place] Indication: Recurrent CVA Risk Factors: Unknown Previous Vascular Surgery: Unknown Right Brachial BP: / Left Brachial BP: / Right Left Velocity (cm/s) Spectral Plaque Velocity (cm/s) Spectral Plaque Syst/Diast Broadening Syst/Diast Broadening 125.70/8.80 Prox CCA 95.90 / 9.90 109.20/8.80 Mid CCA 71.70 / 9.90 79.40/ 4.40 Distal CCA 46.30 / 8.80 71.70/ 7.70 Prox ICA 73.00 / 15.50 79.40/ 12.10 Mid ICA 83.90 / 12.40 83.10/ 13.40 Distal ICA 85.40 / 14.00 92.60 ECA 169.30 0.66 ICA/CCA 0.89 Antegrade Vertebral Antegrade 43.80/ 5.90 cm/s 35.00/ 5.40 cm/s FINDINGS Thickening in the common carotid internal carotid arteries bilaterally. Minimal plaques at the bifurcations bilaterally Antegrade flow in the vertebral arteries bilaterally Subclavian arteries were not identified CONCLUSIONS Minimal plaques of bifurcations bilaterally Intimal thickening in the common carotid and internal carotid arteries. Antegrade flow in the vertebral arteries bilaterally. Pulsatile flow was noted in the subclavian veins bilaterally Subclavian arteries were not identified or interrogated. This part of the study need to be repeated Dr Seble Hassan MD [facility] (Electronically Signed) Final Date: 02 Jul 2021 08:31 S
[2021-06-30 19:54] LABS: Thyroid Stimulating Hormone 2.46 uIU/mL (0.27-4.20)
[2021-07-01] VITALS (14 sets, daily range): BP systolic 110–130; BP diastolic 67–80; PULSE 73–87; RESP 17–22; TEMP 36.5–37; O2SAT 92–94
[2021-07-01] MEDS: ipratropium-albuterol 3 mL Neb INHALATION ×4 (02:32→20:10)
[2021-07-01] MEDS: ampicillin-sulbactam 3 GM in sodium chloride 0.9% (plus) 50 ML IV ×3 (06:09→22:06)
--- NOTE | 2021-07-01 08:40 | PM.PN ---
Subjective Subjective: Patient is still short of breath Vitals/I&O/Wt Last Vital Signs Temp 98.4 F 07/01/21 07:55 Pulse 78 07/01/21 07:55 Resp 17 07/01/21 07:55 BP 125/67 07/01/21 07:55 Pulse Ox 94 07/01/21 07:55 06/30/21 07/01/21 07/01/21 22:59 06:59 14:59 Intake Total 410 / 1060 50 / 1110 50 / 50 Output Total 700 / 700 700 / 1400 Balance -290 / 360 -650 / -290 50 / 50 Physical Exam Narrative: General: Alert oriented x3 HEENT: Normocephalic, atraumatic, EOMI, Cardio: Regular rate rhythm, normal S1-S2 Respiratory: has bilateral mild crackles present. GI: Abdomen soft, nontender, large obese rounded abdomen, bowel sounds + Extremities: 1+ edema Urinary Catheter Management: Lynn: Cath Placed During This Visit: yes Reason for Continuing Indwelling Catheter: Other Urinary Catheter Date of Insertion: 06/29/21 Urinary Catheter Time of Insertion: 17:31 Data : 06/30/21 04:41 06/30/21 04:41 Micro: Microbiology 06/29/21 18:40 Enteric Pathogens (PCR) - Final Stool Routine Collection Parasite Antigen Panel - Final C.difficile Toxin B Gene (PCR) - Final 06/29/21 20:00 MRSA Culture - Final Nose A&P Assessment and plan (1) Acute on chronic diastolic (congestive) heart failure: Uptitrate lasix to 60mg BID. Close I and Os. We will consider doing a myocardial perfusion imaging, to rule out any coronary ischemia Status: Acute (2) Pericardial effusion: Patient has moderate pericardial effusion. Continue diuresis. Patient does not have tamponade signs and symptoms Status: Acute (3) Pneumonia: Management as per the primary Status: Acute (4) Dyslipidemia: Status: Chronic (5) History of CVA (cerebrovascular accident): Currently the patient has no residual motor weakness. If she has not had a carotid duplex lamination recently, we may go ahead and do 1. Status: Chronic (6) Diabetes mellitus: Aggressive management would be appropriate. Status: Chronic Qualifiers: Diabetes mellitus care home insulin use: without watermelon inspector use Diabetes mellitus type: type 2 Diabetes mellitus complication status: with hyperglycemia Qualified Code(s): E11.65 - Type 2 diabetes mellitus with hyperglycemia (7) Hypertension: Currently normotensive. May continue on the current medications. Status: Chronic Qualifiers: Hypertension type: primary hypertension Qualified Code(s): I10 - Essential (primary) hypertension Plan Continue diuresis Attestations Medical Necessity Statement*: Care expected to cross 2 midnights. Coding Level of Care Code Acute Elementary School Teacher'S Aide for [facility] Augied Diagnoses Acute on chronic diastolic (congestive) heart failure I50.33 Pericardial effusion I31.3 Pneumonia J18.9 Dyslipidemia E78.5 History of CVA (cerebrovascular accident) Z86.73 Diabetes mellitus E11.65 Diabetes mellitus watermelon inspector insulin use: without care home use Diabetes mellitus type: type 2 Diabetes mellitus complication status: with hyperglycemia Hypertension I10 Hypertension type: primary hypertension
--- NOTE | 2021-07-01 09:37 | PC.SOCIAL ---
IMM update IMM updated with patient. Verbalized an understanding. Copy Pg 2 provided. Initialled, dated, timed, and placed in chart.
[2021-07-01] MEDS: atorvastatin 40 mg Tablet PO (10:04)
[2021-07-01] MEDS: metoprolol succinate ER (24 HR) 50 mg Tablet PO (10:04)
[2021-07-01] MEDS: duloxetine 20 mg Capsule PO ×2 (10:06→18:10)
[2021-07-01] MEDS: amlodipine 10 mg Tablet PO (10:06)
[2021-07-01] MEDS: isosorbide mononitrate ER 30 mg Tablet PO ×2 (10:09→18:10)
[2021-07-01 10:10] LABS: Glucose Point of Care 136 mg/dL (70-110)
[2021-07-01 10:10] LABS: Glucose Point of Care 130 mg/dL (70-110)
[2021-07-01 10:10] LABS: Glucose Point of Care 169 mg/dL (70-110)
--- NOTE | 2021-07-01 10:12 | PM.PN ---
Subjective Subjective: Seen this morning. Patient is resting comfortably in bed on 2 L nasal cannula. However she states that with any kind of activity she gets really short of breath. She was seen by cardiology yesterday 2. There is consideration of a stress test and possible pericardiocentesis for diagnostic and therapeutic purposes. Patient also has her diarrhea has slowed down. Bacterial and ova parasite culture including C. difficile is all negative. Lactoferrin however is positive. She has never had a colonoscopy. Vitals/I&O/Wt Last Vital Signs Temp 98.4 F 07/01/21 07:55 Pulse 75 07/01/21 09:00 Resp 18 07/01/21 09:00 BP 125/67 07/01/21 07:55 Pulse Ox 93 07/01/21 09:00 06/30/21 07/01/21 07/01/21 22:59 06:59 14:59 Intake Total 410 / 1060 50 / 1110 410 / 410 Output Total 700 / 700 700 / 1400 Balance -290 / 360 -650 / -290 410 / 410 Physical Exam Narrative: General: Alert oriented x3, patient seen sitting up in bed appearing comfortable on 2L nasal cannula no acute respiratory distress.? Only present at bedside. HEENT: Normocephalic, atraumatic, EOMI, Cardio: Regular rate rhythm, normal S1-S2, mildly elevated JVD Respiratory: Clear to auscultation bilaterally, no wheezes no rhonchi present today. GI: Abdomen soft, nontender, large obese rounded abdomen, bowel sounds + Extremities: Trace edema bilateral lower extremities, surgical scar present around left ankle. Urinary Catheter Management: Lynn: Cath Placed During This Visit: yes Reason for Continuing Indwelling Catheter: Other Urinary Catheter Date of Insertion: 06/29/21 Urinary Catheter Time of Insertion: 17:31 Data : 06/30/21 04:41 06/30/21 04:41 Micro: Microbiology 06/29/21 18:40 Enteric Pathogens (PCR) - Final Stool Routine Collection Parasite Antigen Panel - Final C.difficile Toxin B Gene (PCR) - Final 06/29/21 20:00 MRSA Culture - Final Nose A&P Assessment and plan (1) History of pleural effusion: Status: Acute (2) Pericardial effusion: Status: Acute (3) Acute on chronic diastolic (congestive) heart failure: Status: Acute (4) Hypoxemia: Status: Acute (5) Pneumonia: Status: Acute (6) CHF (congestive heart failure): Status: Acute (7) History of CVA (cerebrovascular accident): Status: Chronic (8) Sleep apnea: Status: Acute Plan #Multi-lobar Pneumonia #CHF exacerbation, cardiomegaly on x-ray, BNP elevated, no prior diagnosis #Chronic diarrhea, acutely worsened #Hypertension #Hypokalemia #LINH on CKD #Oxygen dependent now, new diagnosis #Leukocytosis secondary to pneumonia ? CT chest without contrast complete.? Multilobar irregular shaped pulmonary opacifications.? Differential includes pneumonitis and pneumonia.? Recommend follow-up to resolution to be sure there is no underlying neoplasm.? Areas of atelectasis are also present.? Left adrenal myolipoma also present. ? Procalcitonin is negative.? Patient denies a cough or increase sputum production.? Discussed CT findings with pulmonology. They recommend f/u outpatient to ensure resolution of infiltrates and repeat CT in 6 weeks time. Imaging was reviewed by poolroom table attendant. Possibility of micro-aspiration. Will continue antibiotics for 10 days at discharge with augmentin 875 BID. Refer to pulm at discharge to be seen in 1 month. ? Echo completed.? LVEF and systolic function normal.? EF is 70%.? Mildly increased left ventricular thickness.? No diagnostic regional wall motion abnormalities.? Moderate circumferential pericardial effusion present.? Anteriorly 15 mm and posteriorly 12 mm.? No evidence of hemodynamic compromise based on study.? When compared to previous echo 2020 pericardial effusion has increased in size. ? Findings were discussed with cardiology.? There is no evidence of tamponade and patient is hemodynamically stable. -Cardiology considering stress test versus pericardiocentesis. Will await for further recommendations ? Continue Lasix 40 IV daily. ? C. difficile sample, stool culture are all negative. Lactoferrin is positive. Patient will need a colonoscopy. She has never had one before. We will refer her for colonoscopy at discharge. ? Replete electrolytes ? Continue antihypertensives ? Continue all other home medications - Home o2 frank at discharge. Full code Attestations Medical Necessity Statement*: AnyStill short of breath on exertion. May need stress test versus pericardiocentesis before discharge. Coding Level of Care Code Acute Brim Stretcher for Chg Fwd Diagnoses History of pleural effusion Z87.09 Pericardial effusion I31.3 Acute on chronic diastolic (congestive) heart failure I50.33 Hypoxemia R09.02 Pneumonia J18.9 CHF (congestive heart failure) I50.9 History of CVA (cerebrovascular accident) Z86.73 Sleep apnea G47.30
[2021-07-01] MEDS: losartan 50 mg Tablet 150 MG PO (10:14)
[2021-07-01 10:15] LABS: Glucose Point of Care 145 mg/dL (70-110)
[2021-07-01 11:50] LABS: Glucose Point of Care 99 mg/dL (70-110)
[2021-07-01] MEDS: FUROsemide 10 mg/mL SDV 4mL 60 MG IVP ×2 (12:24→23:39)
[2021-07-01] MEDS: heparin 5,000 unit/mL INJ 1 mL 5000 UNIT SUBCUT ×2 (12:25→23:40)
[2021-07-01 17:20] LABS: Glucose Point of Care 129 mg/dL (70-110)
[2021-07-01] MEDS: insulin lispro 100 unit/1 mL SUBCUT (22:06)
[2021-07-02] VITALS (18 sets, daily range): BP systolic 110–135; BP diastolic 61–75; PULSE 73–82; RESP 16–22; TEMP 36.4–37; O2SAT 91–94
[2021-07-02] MEDS: ipratropium-albuterol 3 mL Neb INHALATION ×4 (02:31→21:42)
[2021-07-02] MEDS: ampicillin-sulbactam 3 GM in sodium chloride 0.9% (plus) 50 ML IV ×4 (04:14→22:17)
[2021-07-02 05:39] LABS: Anion Gap 16.3 (5-19); Blood Urea Nitrogen 12 mg/dL (8-23); Calcium 8.9 mg/dL (8.5-10.5); Carbon Dioxide 23 mmol/L (22-29); Chloride 100 mmol/L (98-107); Creatinine Clr Calc Pharmacy 57.9617; Glucose 140 mg/dL (65-115); Magnesium 1.8 mg/dL (1.7-2.3); Osmolality Calculated 284 mOsm/kg (285-295); Potassium 3.3 mmol/L (3.5-5.1); Sodium 136 mmol/L (136-145)
[2021-07-02 06:25] LABS: Glucose Point of Care 141 mg/dL (70-110)
[2021-07-02 08:59] LABS: Glucose Point of Care 159 mg/dL (70-110)
[2021-07-02 08:59] LABS: Glucose Point of Care 121 mg/dL (70-110)
[2021-07-02] MEDS: atorvastatin 40 mg Tablet PO (10:00)
[2021-07-02] MEDS: duloxetine 20 mg Capsule PO ×2 (10:00→19:03)
[2021-07-02] MEDS: metoprolol succinate ER (24 HR) 50 mg Tablet PO (10:00)
[2021-07-02] MEDS: amlodipine 10 mg Tablet PO (10:00)
[2021-07-02] MEDS: isosorbide mononitrate ER 30 mg Tablet PO ×2 (10:01→19:03)
[2021-07-02 11:35] LABS: Glucose Point of Care 98 mg/dL (70-110)
--- NOTE | 2021-07-02 11:39 | PC.NURSE ---
Spoke with Dr. Rodriguez via voalte about administering losartan because of a blood pressure of 115/69. Approved me holding the medication.
[2021-07-02] MEDS: heparin 5,000 unit/mL INJ 1 mL 5000 UNIT SUBCUT (13:12)
--- NOTE | 2021-07-02 13:14 | P.PN_ITS ---
Subjective Subjective: Patient is doing better today. Diuresing well. Vitals/I&O/Wt Last Vital Signs Temp 97.5 F L 07/02/21 12:46 Pulse 74 07/02/21 12:46 Resp 16 07/02/21 12:46 BP 121/71 07/02/21 12:46 Pulse Ox 94 07/02/21 12:46 07/01/21 07/02/21 07/02/21 22:59 06:59 14:59 Intake Total 480 / 1180 100 / 1280 50 / 50 Output Total 1450 / 1700 2000 / 3700 450 / 450 Balance -970 / -520 -1900 / -2420 -400 / -400 Weight last 48 hrs Weight 208 lb 3 oz Physical Exam Narrative: General: Alert oriented x3 HEENT: Normocephalic, atraumatic, EOMI, Cardio: Regular rate rhythm, normal S1-S2 Respiratory: has bilateral mild crackles present. GI: Abdomen soft, nontender, large obese rounded abdomen, bowel sounds + Extremities: 1+ edema Urinary Catheter Management: Lynn: Cath Placed During This Visit: yes Reason for Continuing Indwelling Catheter: Other Urinary Catheter Date of Insertion: 06/29/21 Urinary Catheter Time of Insertion: 17:31 Data : 06/30/21 04:41 07/03/21 03:50 A&P Assessment and plan (1) Acute on chronic diastolic (congestive) heart failure: Continue IV lasix. We will consider doing a myocardial perfusion imaging, to rule out any coronary ischemia, can be done as outpatient Status: Acute (2) Pericardial effusion: Patient has moderate pericardial effusion. Continue diuresis. Patient does not have tamponade signs and symptoms. Will repeat limited echocardiogram as outpatient Status: Acute (3) Pneumonia: Management as per the primary Status: Acute (4) Dyslipidemia: Status: Chronic (5) History of CVA (cerebrovascular accident): Currently the patient has no residual motor weakness. If she has not had a carotid duplex lamination recently, we may go ahead and do 1. Status: Chronic (6) Diabetes mellitus: Aggressive management would be appropriate. Status: Chronic Qualifiers: Diabetes mellitus [facility] insulin use: without rn long term care use Diabetes mellitus type: type 2 Diabetes mellitus complication status: with hyperglycemia Qualified Code(s): E11.65 - Type 2 diabetes mellitus with hyperglycemia (7) Hypertension: Currently normotensive. May continue on the current medications. Status: Chronic Qualifiers: Hypertension type: primary hypertension Qualified Code(s): I10 - Essential (primary) hypertension Plan Continue diuresis Attestations Medical Necessity Statement*: Care expected to cross 2 midnights. Coding Level of Care Code Acute Sales And Marketing Agent for [facility] Fwd Diagnoses Acute on chronic diastolic (congestive) heart failure I50.33 Pericardial effusion I31.3 Pneumonia J18.9 Dyslipidemia E78.5 History of CVA (cerebrovascular accident) Z86.73 Diabetes mellitus E11.65 Diabetes mellitus [facility] insulin use: without [facility] use Diabetes mellitus type: type 2 Diabetes mellitus complication status: with hyperglycemia Hypertension I10 Hypertension type: primary hypertension
--- NOTE | 2021-07-02 14:44 | PM.PN ---
Subjective Subjective: Seen this AM. Patient is diuresing well. Urine output 3000 mL over last 24 hours. She does state shortness of breath is improved slightly. Vitals/I&O/Wt Last Vital Signs Temp 97.5 F L 07/02/21 12:46 Pulse 74 07/02/21 12:46 Resp 16 07/02/21 12:46 BP 121/71 07/02/21 12:46 Pulse Ox 94 07/02/21 12:46 07/01/21 07/02/21 07/02/21 22:59 06:59 14:59 Intake Total 480 / 1180 100 / 1280 50 / 50 Output Total 1450 / 1700 2000 / 3700 700 / 700 Balance -970 / -520 -1900 / -2420 -650 / -650 Weight last 48 hrs Weight 94.432 kg Physical Exam Narrative: General: Alert oriented x3, patient seen sitting up in chair appearing comfortable on 2L nasal cannula no acute respiratory distress.? HEENT: Normocephalic, atraumatic, EOMI, Cardio: Regular rate rhythm, normal S1-S2, Respiratory: Clear to auscultation bilaterally, no wheezes no rhonchi present today. Bibasilar crackles present. GI: Abdomen soft, nontender, large obese rounded abdomen, bowel sounds + Extremities: Trace edema bilateral lower extremities, surgical scar present around left ankle. Urinary Catheter Management: Lynn: Cath Placed During This Visit: yes Reason for Continuing Indwelling Catheter: Other Urinary Catheter Date of Insertion: 06/29/21 Urinary Catheter Time of Insertion: 17:31 Data : 06/30/21 04:41 07/02/21 04:45 A&P Assessment and plan (1) History of pleural effusion: Status: Acute (2) Pericardial effusion: Status: Acute (3) Acute on chronic diastolic (congestive) heart failure: Status: Acute (4) Pneumonia: Status: Acute (5) CHF (congestive heart failure): Status: Acute (6) History of CVA (cerebrovascular accident): Status: Chronic (7) BRIONES (dyspnea on exertion): Status: Acute (8) Diabetes mellitus: Status: Chronic Qualifiers: Diabetes mellitus skilled nursing insulin use: without terminal carman use Diabetes mellitus type: type 2 Diabetes mellitus complication status: with hyperglycemia Qualified Code(s): E11.65 - Type 2 diabetes mellitus with hyperglycemia (9) Hypertension: Status: Chronic Qualifiers: Hypertension type: primary hypertension Qualified Code(s): I10 - Essential (primary) hypertension (10) Anxiety: Status: Chronic (11) Dyslipidemia: Status: Chronic Plan #Multi-lobar Pneumonia #CHF exacerbation, cardiomegaly on x-ray, BNP elevated, no prior diagnosis #Chronic diarrhea #Hypertension #Hypokalemia #LINH on CKD #Oxygen dependent now, new diagnosis #Leukocytosis secondary to pneumonia ? CT chest without contrast complete.? Multilobar irregular shaped pulmonary opacifications.? Differential includes pneumonitis and pneumonia.? Recommend follow-up to resolution to be sure there is no underlying neoplasm.? Areas of atelectasis are also present.? Left adrenal myolipoma also present. ? Procalcitonin is negative.? Patient denies a cough or increase sputum production.? Discussed CT findings with pulmonology. They recommend f/u outpatient to ensure resolution of infiltrates and repeat CT in 6 weeks time. Imaging was reviewed by motor electrician. Possibility of micro-aspiration. Will continue antibiotics for 10 days at discharge with augmentin 875 BID. Refer to pulm at discharge to be seen in 1 month. ? Echo completed.? LVEF and systolic function normal.? EF is 70%.? Mildly increased left ventricular thickness.? No diagnostic regional wall motion abnormalities.? Moderate circumferential pericardial effusion present.? Anteriorly 15 mm and posteriorly 12 mm.? No evidence of hemodynamic compromise based on study.? When compared to previous echo 2020 pericardial effusion has increased in size. ? Findings were discussed with cardiology.? There is no evidence of tamponade and patient is hemodynamically stable. ? Continue Lasix 60 IV BID. ? C. difficile sample, stool culture are all negative.? Lactoferrin is positive.? Patient will need a colonoscopy.? She has never had one before.? We will refer her for colonoscopy at discharge with GI ? Replete electrolytes ? Continue antihypertensives ? Continue all other home medications - Home o2 eval at discharge. Full code Attestations Medical Necessity Statement*: needs continued IV diureses, 48 hour stay expected Coding Level of Care Code Acute Sonogram Technician for Chg Fwd Diagnoses History of pleural effusion Z87.09 Pericardial effusion I31.3 Acute on chronic diastolic (congestive) heart failure I50.33 Pneumonia J18.9 CHF (congestive heart failure) I50.9 History of CVA (cerebrovascular accident) Z86.73 BRIONES (dyspnea on exertion) R06.00 Diabetes mellitus E11.65 Diabetes mellitus skilled nursing insulin use: without skilled nursing use Diabetes mellitus type: type 2 Diabetes mellitus complication status: with hyperglycemia Hypertension I10 Hypertension type: primary hypertension Anxiety F41.9 Dyslipidemia E78.5
[2021-07-02] MEDS: potassium chloride ER 20 mEq Tablet 80 MEQ PO (16:15)
[2021-07-02] MEDS: FUROsemide 10 mg/mL SDV 4mL 60 MG IVP (16:15)
[2021-07-02 17:34] LABS: Glucose Point of Care 125 mg/dL (70-110)
[2021-07-02 20:48] LABS: Glucose Point of Care 109 mg/dL (70-110)
[2021-07-03] VITALS (13 sets, daily range): BP systolic 100–121; BP diastolic 57–69; PULSE 70–98; RESP 12–18; TEMP 36.6–36.8; O2SAT 92–96; BMI 38.0
[2021-07-03] MEDS: heparin 5,000 unit/mL INJ 1 mL 5000 UNIT SUBCUT ×2 (00:30→12:33)
[2021-07-03] MEDS: ampicillin-sulbactam 3 GM in sodium chloride 0.9% (plus) 50 ML IV ×4 (03:25→23:53)
[2021-07-03] MEDS: FUROsemide 10 mg/mL SDV 4mL 60 MG IVP ×2 (04:13→16:52)
[2021-07-03] MEDS: ipratropium-albuterol 3 mL Neb INHALATION ×4 (04:16→20:07)
[2021-07-03 05:16] LABS: Blood Urea Nitrogen 15 mg/dL (8-23); Calcium 9.4 mg/dL (8.5-10.5); Carbon Dioxide 26 mmol/L (22-29); Chloride 99 mmol/L (98-107); Glucose 120 mg/dL (65-115); Magnesium 1.8 mg/dL (1.7-2.3); Osmolality Calculated 288 mOsm/kg (285-295); Sodium 138 mmol/L (136-145)
[2021-07-03 06:44] LABS: Glucose Point of Care 126 mg/dL (70-110)
[2021-07-03] MEDS: amlodipine 10 mg Tablet PO (09:56)
[2021-07-03] MEDS: metoprolol succinate ER (24 HR) 50 mg Tablet PO (09:56)
[2021-07-03] MEDS: atorvastatin 40 mg Tablet PO (09:58)
[2021-07-03] MEDS: isosorbide mononitrate ER 30 mg Tablet PO ×2 (09:59→18:41)
--- NOTE | 2021-07-03 10:10 | PC.SOCIAL ---
IMM Updated Updated pt on IMM. No questions voiced. Provided pt a copy. Initialed, dated, & timed copy in chart.
[2021-07-03] MEDS: duloxetine 20 mg Capsule PO ×2 (10:13→18:41)
--- NOTE | 2021-07-03 10:39 | PM.PN ---
Subjective Subjective: Patient is doing better. Is over 4 L net negative since admission. renal function is stable Vitals/I&O/Wt Last Vital Signs Temp 98.2 F 07/03/21 08:06 Pulse 80 07/03/21 08:58 Resp 17 07/03/21 08:51 BP 121/63 07/03/21 09:55 Pulse Ox 94 07/03/21 08:51 07/02/21 07/03/21 07/03/21 22:59 06:59 14:59 Intake Total 50 / 100 600 / 700 360 / 360 Output Total 700 / 1400 700 / 2100 750 / 750 Balance -650 / -1300 -100 / -1400 -390 / -390 Weight last 48 hrs Weight 208 lb 3 oz Weight 208 lb 3 oz Physical Exam Narrative: General: Alert oriented x3 HEENT: Normocephalic, atraumatic, EOMI, Cardio: Regular rate rhythm, normal S1-S2 Respiratory: has bilateral mild crackles present. GI: Abdomen soft, nontender, large obese rounded abdomen, bowel sounds + Extremities: 1+ edema Urinary Catheter Management: Lynn: Cath Placed During This Visit: yes Reason for Continuing Indwelling Catheter: Accurate Measurement of Urinary Output in Critically Ill Patients Urinary Catheter Date of Insertion: 06/29/21 Urinary Catheter Time of Insertion: 17:31 Data : 07/04/21 04:02 07/04/21 04:02 A&P Assessment and plan (1) Acute on chronic diastolic (congestive) heart failure: Continue IV lasix. Can uptitrate lasix dose to 80mg BID. We will consider doing a myocardial perfusion imaging, to rule out any coronary ischemia, can be done as outpatient Status: Acute (2) Pericardial effusion: Patient has moderate pericardial effusion. Continue diuresis. Patient does not have tamponade signs and symptoms. Will repeat limited echocardiogram as outpatient Status: Acute (3) Pneumonia: Management as per the primary Status: Acute (4) Dyslipidemia: Status: Chronic (5) History of CVA (cerebrovascular accident): Currently the patient has no residual motor weakness. Status: Chronic (6) Diabetes mellitus: Aggressive management would be appropriate. Status: Chronic Qualifiers: Diabetes mellitus longterm insulin use: without boat hoist operator use Diabetes mellitus type: type 2 Diabetes mellitus complication status: with hyperglycemia Qualified Code(s): E11.65 - Type 2 diabetes mellitus with hyperglycemia (7) Hypertension: Currently normotensive. May continue on the current medications. Status: Chronic Qualifiers: Hypertension type: primary hypertension Qualified Code(s): I10 - Essential (primary) hypertension Plan Continue diuresis Attestations Medical Necessity Statement*: Care expected to cross 2 midnights. Coding Level of Care Code Acute Station Supervisor for [facility] Fwd Diagnoses Acute on chronic diastolic (congestive) heart failure I50.33 Pericardial effusion I31.3 Pneumonia J18.9 Dyslipidemia E78.5 History of CVA (cerebrovascular accident) Z86.73 Diabetes mellitus E11.65 Diabetes mellitus boat hoist operator insulin use: without boat hoist operator use Diabetes mellitus type: type 2 Diabetes mellitus complication status: with hyperglycemia Hypertension I10 Hypertension type: primary hypertension
--- NOTE | 2021-07-03 10:48 | P.PN_ITS ---
Subjective Subjective: seen this am. daughter at bedside no acute events overnight 3L urine output last 24 hours Vitals/I&O/Wt Last Vital Signs Temp 98.2 F 07/03/21 08:06 Pulse 80 07/03/21 08:58 Resp 17 07/03/21 08:51 BP 121/63 07/03/21 09:55 Pulse Ox 94 07/03/21 08:51 07/02/21 07/03/21 07/03/21 22:59 06:59 14:59 Intake Total 50 / 100 600 / 700 360 / 360 Output Total 700 / 1400 700 / 2100 750 / 750 Balance -650 / -1300 -100 / -1400 -390 / -390 Weight last 48 hrs Weight 94.432 kg Weight 94.432 kg Physical Exam Narrative: General: Alert oriented x3, patient seen sitting up in chair appearing comfortable on 2L nasal cannula no acute respiratory distress.? HEENT: Normocephalic, atraumatic, EOMI, Cardio: Regular rate rhythm, normal S1-S2, Respiratory: Bibasilar crackles present. GI: Abdomen soft, nontender, large obese rounded abdomen, bowel sounds + Extremities: Trace edema bilateral lower extremities, surgical scar present around left ankle. Urinary Catheter Management: Lynn: Cath Placed During This Visit: yes Reason for Continuing Indwelling Catheter: Accurate Measurement of Urinary Output in Critically Ill Patients Urinary Catheter Date of Insertion: 06/29/21 Urinary Catheter Time of Insertion: 17:31 Data : 06/30/21 04:41 07/03/21 03:50 A&P Assessment and plan (1) History of pleural effusion: Status: Acute (2) Pericardial effusion: Status: Acute (3) Acute on chronic diastolic (congestive) heart failure: Status: Acute (4) Hypoxemia: Status: Acute (5) Pneumonia: Status: Acute (6) CHF (congestive heart failure): Status: Acute (7) History of CVA (cerebrovascular accident): Status: Chronic (8) Diabetes mellitus: Status: Chronic Qualifiers: Diabetes mellitus jail insulin use: without intermodal owner operator truck driver use Diabetes mellitus type: type 2 Diabetes mellitus complication status: with hyperglycemia Qualified Code(s): E11.65 - Type 2 diabetes mellitus with hyperglycemia (9) Hypertension: Status: Chronic Qualifiers: Hypertension type: primary hypertension Qualified Code(s): I10 - Essential (primary) hypertension Plan #Multi-lobar Pneumonia #CHF exacerbation, cardiomegaly on x-ray, BNP elevated, no prior diagnosis #Chronic diarrhea #Hypertension #Hypokalemia #LINH on CKD #Oxygen dependent now, new diagnosis #Leukocytosis secondary to pneumonia ? CT chest without contrast complete.? Multilobar irregular shaped pulmonary opacifications.? Differential includes pneumonitis and pneumonia.? Recommend follow-up to resolution to be sure there is no underlying neoplasm.? Areas of atelectasis are also present.? Left adrenal myolipoma also present. ? Procalcitonin is negative.? Patient denies a cough or increase sputum production.? Discussed CT findings with pulmonology. They recommend f/u outpatient to ensure resolution of infiltrates and repeat CT in 6 weeks time. Im aging was reviewed by solar process engineer. Possibility of micro-aspiration. Will continue antibiotics for 10 days at discharge with augmentin 875 BID. Refer to pulm at discharge to be seen in 1 month. ? Echo completed.? LVEF and systolic function normal.? EF is 70%.? Mildly increased left ventricular thickness.? No diagnostic regional wall motion abnormalities.? Moderate circumferential pericardial effusion present.? Anteriorly 15 mm and posteriorly 12 mm.? No evidence of hemodynamic compromise based on study.? When compared to previous echo 2020 pericardial effusion has increased in size. ? Findings were discussed with cardiology.? There is no evidence of tamponade and patient is hemodynamically stable. ? Continue Lasix 80 IV BID. ? C. difficile sample, stool culture are all negative.? Lactoferrin is positive.? Patient will need a colonoscopy.? She has never had one before.? We will refer her for colonoscopy at discharge with GI ? Replete electrolytes ? Continue antihypertensives ? Continue all other home medications - Home o2 eval at discharge. Full code Attestations Medical Necessity Statement*: needs continued IV diureses, possible dc tomorrow Coding Level of Care Code Acute Individual Pension Consultant for [facility]g Fwd Diagnoses History of pleural effusion Z87.09 Pericardial effusion I31.3 Acute on chronic diastolic (congestive) heart failure I50.33 Hypoxemia R09.02 Pneumonia J18.9 CHF (congestive heart failure) I50.9 History of CVA (cerebrovascular accident) Z86.73 Diabetes mellitus E11.65 Diabetes mellitus jail insulin use: without intermodal owner operator truck driver use Diabetes mellitus type: type 2 Diabetes mellitus complication status: with hyperglycemia Hypertension I10 Hypertension type: primary hypertension
[2021-07-03 11:22] LABS: Glucose Point of Care 104 mg/dL (70-110)
[2021-07-03 17:20] LABS: Glucose Point of Care 125 mg/dL (70-110)
[2021-07-03] MEDS: acetaminophen 325 mg Tablet 650 MG PO (21:41)
[2021-07-04] VITALS (13 sets, daily range): BP systolic 116–135; BP diastolic 63–76; PULSE 70–88; RESP 12–18; TEMP 36.6–37.1; O2SAT 91–95
[2021-07-04] MEDS: heparin 5,000 unit/mL INJ 1 mL 5000 UNIT SUBCUT ×2 (00:48→12:46)
[2021-07-04] MEDS: FUROsemide 10 mg/mL SDV 4mL 60 MG IVP (04:40)
[2021-07-04] MEDS: ipratropium-albuterol 3 mL Neb INHALATION ×3 (05:23→15:21)
[2021-07-04 05:36] LABS: Basophils # 0.1 10^3/uL (0.0-0.1); Basophils % 0.9 %; Eosinophils # 0.5 10^3/uL (0.0-0.8); Eosinophils % 4.6 %; Hematocrit 37.6 % (37.0-47.0); Hemoglobin 11.7 g/dL (11.5-15.3); Lymphocytes % 20.2 %; Mean Corpuscular HGB Conc 31.1 g/dL (30.0-36.0); Mean Corpuscular Hemoglobin 27.6 pg (28.0-34.0); Mean Corpuscular Volume 88.7 fl (81-99); Mean Platelet Volume 10.1 fL (7.4-10.4); Monocytes # 0.7 10^3/uL (0.2-0.9); Monocytes % 6.8 %; Neutrophils # 6.51 10^3/uL (1.8-7.7); Neutrophils % 66.5 %; Nucleated Red Blood Cells % 0 %; Platelet Count 393 10^3/cmm (130-400); Red Blood Count 4.24 10^6/uL (4.1-5.3); Red Cell Distribution Width 13.8 % (12.1-15.1); White Blood Count 9.8 10^3/uL (4.0-10.0)
[2021-07-04 05:52] LABS: Anion Gap 14.7 (5-19); Blood Urea Nitrogen 15 mg/dL (8-23); Calcium 9.1 mg/dL (8.5-10.5); Carbon Dioxide 28 mmol/L (22-29); Chloride 100 mmol/L (98-107); Glucose 97 mg/dL (65-115); Magnesium 1.8 mg/dL (1.7-2.3); Osmolality Calculated 289 mOsm/kg (285-295); Potassium 3.7 mmol/L (3.5-5.1); Sodium 139 mmol/L (136-145)
[2021-07-04] MEDS: ampicillin-sulbactam 3 GM in sodium chloride 0.9% (plus) 50 ML IV ×2 (06:30→10:32)
[2021-07-04] MEDS: duloxetine 20 mg Capsule PO (09:44)
[2021-07-04] MEDS: atorvastatin 40 mg Tablet PO (09:44)
[2021-07-04] MEDS: isosorbide mononitrate ER 30 mg Tablet PO (09:44)
[2021-07-04] MEDS: amlodipine 10 mg Tablet PO (09:45)
[2021-07-04] MEDS: metoprolol succinate ER (24 HR) 50 mg Tablet PO (09:45)
--- NOTE | 2021-07-04 09:45 | PC.NURSE ---
Spoke with Dr. Rodriguez via VOALTE and confirmed the holding of losartan 150mg this morning based on blood pressure of 120/75.
--- NOTE | 2021-07-04 09:58 | P.PN_ITS ---
Subjective Subjective: Patient is doing well. No significant shortness of breath Vitals/I&O/Wt Last Vital Signs Temp 97.8 F 07/04/21 08:00 Pulse 79 07/04/21 08:53 Resp 16 07/04/21 08:46 BP 120/75 07/04/21 09:45 Pulse Ox 95 07/04/21 08:46 07/03/21 07/04/21 07/04/21 22:59 06:59 14:59 Intake Total 410 / 1060 308 / 1368 50 / 50 Output Total 1375 / 2425 1600 / 4025 Balance -965 / -1365 -1292 / -2657 50 / 50 Weight last 48 hrs Weight 209 lb Weight 208 lb 3 oz Physical Exam Narrative: General: Alert oriented x3 HEENT: Normocephalic, atraumatic, EOMI, Cardio: Regular rate rhythm, normal S1-S2 Respiratory: has bilateral mild crackles present. GI: Abdomen soft, nontender, large obese rounded abdomen, bowel sounds + Extremities: 1+ edema Urinary Catheter Management: Lynn: Cath Placed During This Visit: yes Reason for Continuing Indwelling Catheter: Other Urinary Catheter Date of Insertion: 06/29/21 Urinary Catheter Time of Insertion: 17:31 Data : 07/04/21 04:02 07/04/21 04:02 A&P Assessment and plan (1) Acute on chronic diastolic (congestive) heart failure: Patient's volume status is much improved. We will switch to PO Lasix Status: Resolved (2) Pericardial effusion: Patient has moderate pericardial effusion. Continue diuresis. Patient does not have tamponade signs and symptoms. Will repeat limited echocardiogram as outpatient Status: Acute (3) Pneumonia: Management as per the primary Status: Acute (4) Dyslipidemia: Status: Chronic (5) History of CVA (cerebrovascular accident): Currently the patient has no residual motor weakness. Status: Chronic (6) Diabetes mellitus: Aggressive management would be appropriate. Status: Chronic Qualifiers: Diabetes mellitus watermelon inspector insulin use: without assisted use Diabetes mellitus type: type 2 Diabetes mellitus complication status: with hyperglycemia Qualified Code(s): E11.65 - Type 2 diabetes mellitus with hyperglycemia (7) Hypertension: Currently normotensive. May continue on the current medications. Status: Chronic Qualifiers: Hypertension type: primary hypertension Qualified Code(s): I10 - Essential (primary) hypertension Plan Patient can be switched to PO lasix and can be discharged with outpatient follow up Attestations Medical Necessity Statement*: Care expected to cross 2 midnights. Coding Level of Care Code Acute Wad Compressor Operator Adjuster for [facility] Fwd Diagnoses Acute on chronic diastolic (congestive) heart failure I50.33 Pericardial effusion I31.3 Pneumonia J18.9 Dyslipidemia E78.5 History of CVA (cerebrovascular accident) Z86.73 Diabetes mellitus E11.65 Diabetes mellitus watermelon inspector insulin use: without assisted use Diabetes mellitus type: type 2 Diabetes mellitus complication status: with hyperglycemia Hypertension I10 Hypertension type: primary hypertension
[2021-07-04 10:12] LABS: Glucose Point of Care 118 mg/dL (70-110)
[2021-07-04 10:12] LABS: Glucose Point of Care 122 mg/dL (70-110)
[2021-07-04] MEDS: FUROsemide 10 mg/mL SDV 4mL 40 MG IVP (10:34)
--- NOTE | 2021-07-04 11:56 | P.DS_ITS ---
Discharge Providers Date of Admission: 06/28/21 23:02 Date of Discharge: July 04, 2021 Attending Provider at Admission: Vivian Christopher DO Attending Provider at Discharge: Tenisha Rodriguez MD Primary Care Provider: NA Major Diagnoses at Discharge Discharge Diagnosis (1) Acute on chronic diastolic (congestive) heart failure: Status: Acute (2) Pericardial effusion: Status: Acute (3) Pneumonia: Status: Acute (4) Dyslipidemia: Status: Chronic (5) History of CVA (cerebrovascular accident): Status: Chronic (6) Diabetes mellitus: Status: Chronic Qualifiers: Diabetes mellitus complication status: with hyperglycemia Diabetes mellitus half-way insulin use: without long distance operator use Diabetes mellitus type: type 2 Qualified Code(s): E11.65 - Type 2 diabetes mellitus with hyperglycemia (7) Hypertension: Status: Chronic Qualifiers: Hypertension type: primary hypertension Qualified Code(s): I10 - Essential (primary) hypertension Reason for Visit Reason for Visit: SOB Brief History: The patient is a 75-year-old female who percent chief complaint of dyspnea which started approximately 4 days prior to hospitalization.? She states it was of gradual onset.? She admits to onset of fever, rigors, cough which is nonproductive, abdominal pain, diarrhea, myalgia, specifically in her back.? She claims to have peripheral edema however none is observed.? She denies nausea, vomiting, wheeze, chest pain, lightheadedness, dizziness, diaphoresis, palpitations, sense of rapid heartbeat, sensation knee regular heartbeat.? She presents for further evaluation Hospital Course Hospital Course Patient was admitted for multilobar pneumonia and treated with ceftriaxone azithromycin and subsequently Unasyn. She is to complete total 14 days of antibiotics for pneumonia. There was also CT findings of opacities and infiltrates on CT. Repeat CT recommended in 6 weeks time. Patient recommended to follow-up with pulmonology in 1 month. Echo was also done which showed increasing size and pericardial effusion. No evidence of hemodynamic compromise and no evidence of tamponade. Therefore cardiology was consulted for pericardial effusion being a possible cause of her continuous dyspnea. At first cardiology was planning a stress test versus pericardiocentesis to be therapeutic and diagnostic but later on plan was changed. Patient was diuresed quite aggressively with IV Lasix and was in a -7 L balance at discharge. Patient was discharged home to follow-up with cardiology within 10 days. She was sent home on Lasix 80 oral twice daily and metolazone 2.5 daily. For patient's chronic diarrhea basic work-up was done which was negative. She has been recommended a colonoscopy. She has never had one before. I will refer her for colonoscopy at discharge. Patient most likely has irritable bowel syndrome. Since diarrhea had acutely worsened during hospital stay C. difficile studies were done which were all negative. Patient qualified for home oxygen will be sent home on oxygen and to follow-up outpatient with PCP, pulmonology, cardiology, general surgery for colonoscopy. All questions answered. Physical Exam Narrative: General: Alert oriented x3, patient seen sitting up in chair appearing comfortable on 2L nasal cannula no acute respiratory distress.? HEENT: Normocephalic, atraumatic, EOMI, Cardio: Regular rate rhythm, normal S1-S2, Respiratory: Bibasilar crackles present but much improved compared to admission. Crackles are minimal at this point. GI: Abdomen soft, nontender, large obese rounded abdomen, bowel sounds + Extremities: Trace edema bilateral lower extremities, surgical scar present around left ankle. Urinary Catheter Management: Lynn: Cath Placed During This Visit: yes Reason for Continuing Indwelling Catheter: Other Urinary Catheter Date of Insertion: 06/29/21 Urinary Catheter Time of Insertion: 17:31 Discharge Data Studies Completed and Pending Completed Studies During Hospitalization Category Date Time Status CT chest wo con [id number] Routine Cat Scan 06/30/21 16:14 Completed XR chest 1V portable [id number] Urgent Exams 06/28/21 19:28 Completed CV carotid duplex BI* [id number] Routine Ultrasound 06/30/21 19:19 Completed CV. echo complete* [id number] Routine Ultrasound 06/29/21 14:55 Completed Pending at discharge Category Date Time Status Sputum Culture and Gram Stain Stat Lab 06/29/21 15:00 Uncollected Radiology Impressions Chest X-Ray 06/28/21 19:28 IMPRESSION: 1. Cardiomegaly. 2. Bibasilar left greater than right atelectasis versus infiltrate. Chest CT 06/30/21 16:14 IMPRESSION: 1. Multilobar irregular shaped pulmonary opacifications. Differential includes pneumonitis and pneumonia. Recommend follow-up to resolution to be sure there is no underlying neoplasm. Additional areas of atelectasis are present. 2. Very small LEFT pleural effusion. 3. LEFT adrenal myelolipoma. 4. No adenopathy. 5. Small pericardial effusion. Laboratory Results WBC 9.8 10^3/uL (4.0-10.0) 07/04/21 04:02 RBC 4.24 10^6/uL (4.1-5.3) 07/04/21 04:02 Hgb 11.7 g/dL (11.5-15.3) 07/04/21 04:02 Hct 37.6 % (37.0-47.0) 07/04/21 04:02 MCV 88.7 fl (81-99) 07/04/21 04:02 MCH 27.6 pg (28.0-34.0) L 07/04/21 04:02 MCHC 31.1 g/dL (30.0-36.0) 07/04/21 04:02 RDW 13.8 % (12.1-15.1) 07/04/21 04:02 Plt Count 393 10^3/cmm (130-400) 07/04/21 04:02 MPV 10.1 fL (7.4-10.4) 07/04/21 04:02 Neut % (Auto) 66.5 % 07/04/21 04:02 Lymph % (Auto) 20.2 % 07/04/21 04:02 [place] % (Auto) 6.8 % 07/04/21 04:02 Eos % (Auto) 4.6 % 07/04/21 04:02 Baso % (Auto) 0.9 % 07/04/21 04:02 Neut # (Auto) 6.51 10^3/uL (1.8-7.7) 07/04/21 04:02 Lymph # (Auto) 2.0 10^3/uL (0.8-4.8) 07/04/21 04:02 [place] # (Auto) 0.7 10^3/uL (0.2-0.9) 07/04/21 04:02 Eos # (Auto) 0.5 10^3/uL (0.0-0.8) 07/04/21 04:02 Baso # (Auto) 0.1 10^3/uL (0.0-0.1) 07/04/21 04:02 Nucleated RBC % (auto) 0 % 07/04/21 04:02 Nucleated RBCs # 0.0 /100WBC 07/04/21 04:02 Specimen Type Arterial 06/28/21 20:17 Sample Site Radial, left 06/28/21 20:17 ABG pH 7.48 (7.35-7.45) H 06/28/21 20:17 ABG pCO2 31.9 mmHg (35-45) L 06/28/21 20:17 ABG pO2 60.6 mmHg (80.0-100.0) L 06/28/21 20:17 ABG HCO3 23.7 mmol/L (22-26) 06/28/21 20:17 ABG Base Excess 0.7 mmol/L (-2.0-2.0) 06/28/21 20:17 Oc Test Pos 06/28/21 20:17 Hematocrit 39.8 % (37-47) 06/28/21 20:17 O2 Delivery Device Nc 06/28/21 20:17 O2 Liters/Min 3.5 % 06/28/21 20:17 National Insurance Officer ID [place] 06/28/21 20:17 Sodium 139 mmol/L (136-145) 07/04/21 04:02 Potassium 3.7 mmol/L (3.5-5.1) 07/04/21 04:02 Chloride 100 mmol/L (98-107) 07/04/21 04:02 Carbon Dioxide 28 mmol/L (22-29) 07/04/21 04:02 Anion Gap 14.7 (5-19) 07/04/21 04:02 BUN 15 mg/dL (8-23) 07/04/21 04:02 Creatinine 0.8 mg/dL (0.5-0.9) 07/04/21 04:02 GFR Calculation Not Reportable 07/04/21 04:02 Glucose 97 mg/dL (65-115) 07/04/21 04:02 POC Glucose 122 mg/dL (70-110) H 07/04/21 06:21 Calculated Osmolality 289 mOsm/kg (285-295) 07/04/21 04:02 Calcium 9.1 mg/dL (8.5-10.5) 07/04/21 04:02 Magnesium 1.8 mg/dL (1.7-2.3) 07/04/21 04:02 Total Bilirubin 0.8 mg/dL (0.15-1.2) 06/29/21 02:21 AST 28 U/L (0-32) 06/29/21 02:21 ALT 10 U/L (0-33) 06/29/21 02:21 Alkaline Phosphatase 113 IU/L (35-105) H 06/29/21 02:21 Troponin T Baseline 21 ng/L (0-10) H 06/28/21 19:38 Troponin T 120 Minute 18.64 ng/L (0-10) H 06/28/21 21:35 Delta Troponin T -2.36 ABS# (0-10) L 06/28/21 21:35 Troponin T Hi Sens 6Hr 22.08 ng/L (0-10) H 06/29/21 02:21 Troponin T Hi Sens 6Hr Delta 1.08 ng/L (0-12) 06/29/21 02:21 C-Reactive Protein 190.5 mg/L (0.0-4.9) H 06/28/21 21:35 C-React Prot High Sens 19.560 mg/dL (0.0-0.3) H 06/30/21 04:41 NT-Pro-B Natriuret Pep 578 pg/mL (0-450) H 06/28/21 21:35 Total Protein 7.1 g/dL (6.6-8.7) 06/29/21 02:21 Albumin 3.2 g/dL (3.5-5.2) L 06/29/21 02:21 Globulin 3.9 g/dL (1.3-4.6) 06/29/21 02:21 Procalcitonin 0.12 ng/mL (0-0.5) 06/29/21 02:21 TSH 2.46 uIU/mL (0.27-4.20) 06/30/21 04:41 Nasal Influ A H1 2009 PCR Not detected (NOT DETECT) 06/28/21 19:54 Coronavirus 229E (PCR) Not detected (NOT DETECT) 06/28/21 19:54 Influenza A (H1) PCR Not detected (NOT DETECT) 06/28/21 19:54 Influenza A (H3) PCR Not detected (NOT DETECT) 06/28/21 19:54 Influenza Type A (PCR) Not detected (NOT DETECT) 06/28/21 19:54 Influenza Type B (PCR) Not detected (NOT DETECT) 06/28/21 19:54 SARS-CoV-2 (PCR) Not detected (NOT DETECT) 06/28/21 19:54 Vitals Last Vital Signs Temp 98.7 F 07/04/21 11:16 Pulse 82 07/04/21 11:16 Resp 16 07/04/21 11:16 BP 123/72 07/04/21 11:16 Pulse Ox 94 07/04/21 11:16 Discharge Plan Discharge Patient Disposition: Home Condition: Stable Prescriptions: New furosemide [Lasix] 80 mg tablet 80 mg PO BID 30 Days Qty: 60 0RF metolazone 2.5 mg tablet 2.5 mg PO DAILY 30 Days Qty: 30 0RF amoxicillin-pot clavulanate 875-125 mg tablet 1 tab PO BID 4 Days Qty: 8 0RF Continued amlodipine 10 mg tablet 10 mg PO DAILY Qty: 90 3RF duloxetine [Cymbalta] 20 mg capsule,delayed release(DR/EC) 20 mg PO BID Qty: 60 2RF isosorbide mononitrate 30 mg tablet extended release 24 hr 30 mg PO BID Qty: 60 2RF nitroglycerin [Nitrostat] 0.4 mg tablet, sublingual 0.4 mg SUBLINGUAL Q5M PRN (Reason: chest pain) Qty: 25 3RF Rx Instructions: Use as needed for chest discomfort. Aspir-81 81 mg Tablet,Delayed Release (Dr/Ec) 81 mg PO .THREE TIMES A WEEK 0RF atorvastatin 40 mg tablet 40 mg PO DAILY 0RF metoprolol succinate 50 mg tablet extended release 24 hr 50 mg PO DAILY 0RF allopurinol 100 mg tablet 100 mg PO DAILY PRN (Reason: gout) 0RF Ozempic 0.25 mg or 0.5 mg(2 mg/1.5 mL) pen injector 0.25 mg SUBCUT Q7D 0RF Rx Instructions: on mon Discontinued torsemide 10 mg tablet 10 mg PO QAM Qty: 30 2RF Hold Instructions: use lasix amoxicillin-pot clavulanate [Augmentin] 500-125 mg tablet 1 tab PO Q12H Qty: 14 0RF Lasix 40 mg tablet 80 mg PO .DAILY FOR 3 DAYS 0RF potassium chloride 10 mEq tablet extended release 10 meq PO DAILY 0RF losartan 100 mg tablet 150 mg PO DAILY 0RF Discharge Orders: Discharge Order (Routine); Ordered 07/04/21 Ordered By: Tenisha Rodriguez Other Ambulatory Orders: Basic Metabolic Panel (Routine) Timeframe: 20210709 Facility: [facility] - Location: Lab - Main Lab Ordered By: Tenisha Rodriguez CT chest wo con [id number] (Routine) Timeframe: 5 Weeks Facility: [facility] - Location: Radiology [facility] Ordered By: Tenisha Rodriguez NT Pro B Type Natriuretic Pept (Routine) Timeframe: 20210709 Facility: [facility] - Location: Lab - Main Lab Ordered By: Tenisha Rodriguez DME: Oxygen (Order) Location: None Selected Ordered By: Tenisha Rodriguez Referrals: [facility] [Outside] DatarNicolas MD [Physician] - 1 month Shelly Dorsey, LIBRARIAN-C [Primary Care Provider] - 4-7 days Nikunj Milan M.D [Physician] - 7-10 days Hung Harris MD [Physician] - 2 weeks (chronic diarrhea, colonoscopy) Discharge Diet: Cardiac, Diabetic and Low Salt Discharge Activity: Increase activity as tolerated and Oxygen as instructed Patient Instructions: Opioid Safety Discharge Attestations Time Spent in Discharge Care*: greater than 30 min Quality Metrics Clinical Quality Measures [ No reported AMI, CVA or VTE this stay] Coding Level of Care Code Acute Chg FW DC note Diagnoses Acute on chronic diastolic (congestive) heart failure I50.33 Pericardial effusion I31.3 Pneumonia J18.9 Dyslipidemia E78.5 History of CVA (cerebrovascular accident) Z86.73 Diabetes mellitus E11.65 Diabetes mellitus complication status: with hyperglycemia Diabetes mellitus long distance operator insulin use: without long distance operator use Diabetes mellitus type: type 2 Hypertension I10 Hypertension type: primary hypertension
[2021-07-05 06:25] LABS: Glucose Point of Care 130 mg/dL (70-110)
== END 2021-07-04 15:47 | disposition home or self-care (01) | DRG 193 ==
LOC: ER 22:50 → MEDSURG 23:02
PROVIDERS: Internal Medicine Cardiovascular Disease; Admitting Provider Internal Medicine; Emergency Provider Emergency Medicine; PCP Nurse Practitioner; Visit Provider Internal Medicine
DX: J18.9 Pneumonia, unspecified organism (principal); I50.33 Acute on chronic diastolic (congestive) heart failure; I13.0 Hypertensive heart and chronic kidney disease with heart failure and stage 1 through stage 4 chronic kidney disease, or unspecified chronic kidney disease; N17.9 Acute kidney failure, unspecified; I31.3 Pericardial effusion (noninflammatory); N18.9 Chronic kidney disease, unspecified; E11.22 Type 2 diabetes mellitus with diabetic chronic kidney disease; E66.01 Morbid (severe) obesity due to excess calories; Z68.38 Body mass index [BMI] 38.0-38.9, adult; M10.9 Gout, unspecified; Z86.73 Personal history of transient ischemic attack (TIA), and cerebral infarction without residual deficits; E78.5 Hyperlipidemia, unspecified; M54.17 Radiculopathy, lumbosacral region; G47.33 Obstructive sleep apnea (adult) (pediatric); E87.6 Hypokalemia; E11.65 Type 2 diabetes mellitus with hyperglycemia; K58.0 Irritable bowel syndrome with diarrhea; F41.9 Anxiety disorder, unspecified; Z79.82 Long term (current) use of aspirin
CPT/HCPCS: 36415; 36416; 36600; 51702; 71045; 71046; 71250; 80048; 80053; 81000; 82803; 82962; 83630; 83735; 83880; 84145; 84443; 84484; 85025; 86140; 86141; 87493; 87506; 87631; 87635; 87641; 93005; 93306; 93880; 94640; 94664; 96365; 96367; 96372; 96375; 99285; J0295; J0456; J0696; J1644; J1815; J1940; J3480; J3490; J7040; J7050

== ENCOUNTER 2021-07-14 08:34 | Outpatient (CLI) | payer MEDICARE, MEDICAID, SELFPAY ==
[2021-07-14 10:06] LABS: Blood Urea Nitrogen 57 mg/dL (8-23); Calcium 9.7 mg/dL (8.5-10.5); Carbon Dioxide 27 mmol/L (22-29); Chloride 89 mmol/L (98-107); Glucose 112 mg/dL (65-115); NT Pro B Type Natriuretic Pept 231 pg/mL (0-450); Osmolality Calculated 291 mOsm/kg (285-295); Sodium 132 mmol/L (136-145)
== END 2021-07-14 08:35 | disposition home or self-care (01) ==
PROVIDERS: PCP Nurse Practitioner; Visit Provider Internal Medicine
DX: I50.33 Acute on chronic diastolic (congestive) heart failure (principal); I10 Essential (primary) hypertension; E55.9 Vitamin D deficiency, unspecified; F41.9 Anxiety disorder, unspecified; E78.5 Hyperlipidemia, unspecified; E11.9 Type 2 diabetes mellitus without complications; K52.9 Noninfective gastroenteritis and colitis, unspecified; E87.6 Hypokalemia; N17.9 Acute kidney failure, unspecified
CPT/HCPCS: 36415; 80048; 83880; 99203; 99214

== ENCOUNTER 2021-07-29 06:18 | Day surgery (SDC) | payer MEDICARE, MEDICAID, SELFPAY ==
[2021-07-27 09:24] VITALS: BMI 36.2
[2021-07-29 07:06] VITALS: BP 134/83; PULSE 118; RESP 18; TEMP 36.2; O2SAT 95
[2021-07-29] MEDS: sodium chloride 0.9% 1,000 ML 30 ML IV (07:15)
--- NOTE | 2021-07-29 07:37 | ANES.PREANE2 ---
Pre-Anesthetic Assessment Height/Weight: Height 1.57 m Weight 89.811 kg Temp Pulse Resp BP Pulse Ox 97.2 F L 118 H 18 134/83 95 07/29/21 07:06 07/29/21 07:06 07/29/21 07:06 07/29/21 07:06 07/29/21 07:06 Preop Diagnosis: diarrhea Operation Date: 07/29/21 08:00 Proposed Procedures p Colonoscopy 24584/K52.9(Not Applicable) - Luis Angel Arce DO Familial anesthetic complications: none Was Beta Ember taken within 24 hours: Yes Was Clonidine taken within 24 hours: N/A Last intake: Intake Last Liquid Date 07/28/21 Last Liquid Time 16:00 Last Solid Date 07/27/21 Last Solid Time 16:00 Social No alcohol and No tobacco Exam alert, oriented x 3, clear to auscultation bilaterally and regular rate & rhythm Airway Submandibular: Other (Less than 2 fingerbreadths ) Cervical ROM: within normal limits Mallampati: Class III Comments: Comments: missing teeth Pulmonary Sleep Apnea Hx of pleural effusion CV/HEM Congestive Heart Failure and Myocardial Infarction CHF exacerbation with PCN 1 month ago requiring hospital stay and home O2 now of home O2 Hx of pericardial effusion None reported Hepatic None reported GI Gastroesophageal Reflux Disease Diarrhea Metabolic Diabetes Mellitus [facility] [place] Osteoarthritis/DJD Gout Neuropsych Anxiety, Cerebrovascular Accident and Neuropathy Anesthetic Plan ASA status: 3 Anesthesia: Anesthesia Evaluation, General and MAC Other: I discussed with the patient risks, goals, and benefits of MAC and general anesthesia. We discussed spectrum of MAC anesthesia including conversion to general as well as possibility of recall of intraoperative stimuli including discomfort/pain. Patient agrees to proceed with MAC. Risk of > 500 ml blood loss (7ml/kg in children): No Medications/Allergies Home Medications Medication Instructions Recorded Confirmed Last Taken Type nitroglycerin 0.4 mg sublingual 0.4 mg SUBLINGUAL Q5M PRN #25 tab 05/22/19 07/29/21 Unknown Rx tablet (Nitrostat) amlodipine 10 mg tablet 10 mg PO DAILY #90 tab 03/05/21 07/29/21 07/29/21 Rx duloxetine 20 mg capsule,delayed 20 mg PO BID #60 cap 04/26/21 07/29/21 07/28/21 Rx release (Cymbalta) isosorbide mononitrate 30 mg 30 mg PO BID #60 tab 04/26/21 07/29/21 07/29/21 Rx tablet,extended release 24 hr allopurinol 100 mg tablet 100 mg PO DAILY PRN 06/29/21 07/29/21 Unknown History aspirin 81 mg tablet,delayed 81 mg PO .THREE TIMES A WEEK 06/29/21 07/29/21 07/28/21 History release atorvastatin 40 mg tablet 40 mg PO DAILY 06/29/21 07/29/21 07/28/21 History metoprolol succinate 50 mg 50 mg PO DAILY 06/29/21 07/29/21 07/29/21 History tablet,extended release 24 hr semaglutide (Ozempic) 0.25 mg SUBCUT Q7D 06/29/21 07/29/21 06/21/21 History metolazone 2.5 mg tablet 2.5 mg PO DAILY 30 Days #30 tab 07/04/21 07/29/21 07/28/21 Rx potassium chloride 20 mEq 40 meq PO DAILY 30 Days #60 tab 07/04/21 07/29/21 07/28/21 Rx tablet,extended release Allergies Allergy/AdvReac Type Severity Reaction Status Date / Time acetaminophen [From Vicodin] Allergy Unknown Verified 07/29/21 07:01 hydrocodone [From Vicodin] Allergy Unknown Verified 07/29/21 07:01 salsalate Allergy Unknown Verified 07/29/21 07:01 Tetracyclines Allergy Unknown Verified 07/29/21 07:01 Current Medications Generic Name Dose Route Start Last Admin Trade Name Freq PRN Reason Stop Dose Admin Sodium Chloride 1,000 mls @ 30 mls/hr 07/29/21 06:30 07/29/21 07:15 Sodium Chloride 0.9% IV 07/30/21 06:29 30 mls/hr .Q24H JESSICA Administration PFSH Anesthesia Medical History Anxiety BMI 37.0-37.9, adult Chest pressure CHF (congestive heart failure) Chronic diarrhea Dyslipidemia Gout History of CVA (cerebrovascular accident) Hypertension Obesity Radiculopathy, lumbosacral region Sleep apnea Vitamin D insufficiency Surgical History History of colonoscopy 2014 History of tubal ligation 1974 Family History Mother Hyperlipidemia Heart disease Social History Smoking and tobacco status: never smoked Second hand smoke exposure: No Smoking risk assessment/counseling performed?: No Alcohol intake: never Desire information about alcohol rehabilitation?: No Counseling given: No Desire information about substance/drug rehabilitation?: No Counseling given: No Caregiver/support person: No Lives independently: Yes Household members: spouse Housing: House Marital status: Number of children: 5 service: No Current occupational status: unemployed and retired History of recent travel: No Current gender identity: Female Data Anesthesia Cardiac Studies: Echocardiogram 06/29/21 Echocardiogram Limited Views 07/08/19
--- NOTE | 2021-07-29 08:15 | W.PM.OPSUD ---
Surgery/Procedure H&P Update DATE OF PROCEDURE: July 29, 2021 DATE H&P PERFORMED: 07/14/21 CHANGES TO PREVIOUS DOCUMENTATION: none PREOP DIAGNOSIS: diarrhea PLANNED PROCEDURE: Operation Date: 07/29/21 08:00 Proposed Procedures p Colonoscopy 27677/K52.9(Not Applicable) - Luis Angel Arce DO
[2021-07-29 08:58] VITALS: BP 125/63; PULSE 66; RESP 18; TEMP 36.6; O2SAT 92
--- NOTE | 2021-07-29 08:58 | ANE.PACU2 ---
Documented by User: Ekaterina Gonzales CRNA 07/29/21 08:58 Inpatient post-anesthesia follow up: Airway intact: Yes Vital signs: Temperature 97.2 F Pulse Rate 118 Respiratory Rate 18 Blood Pressure 134/83 Pulse Oximetry 95 Oxygen Delivery Me thod Room Air Oxygen Flow Rate Fraction of Inspir ed Oxygen Hydration adequate: Yes Nausea and vomiting: No Pain level: 1 Mental status: Baseline
[2021-07-29 09:09] VITALS: BP 129/73; PULSE 90; RESP 16; TEMP 36.5; O2SAT 92
== END 2021-07-29 09:27 | disposition home or self-care (01) ==
PROVIDERS: PCP Family Medicine; Visit Provider Surgery
PROC: 0DJD8ZZ Inspection of Lower Intestinal Tract, Via Natural or Artificial Opening Endoscopic (ICD-10-PCS; CPT 45378; principal; 2021-07-29 08:00)
DX: K52.9 Noninfective gastroenteritis and colitis, unspecified (principal); K57.30 Diverticulosis of large intestine without perforation or abscess without bleeding; D12.4 Benign neoplasm of descending colon; G47.30 Sleep apnea, unspecified; Z86.711 Personal history of pulmonary embolism; I25.2 Old myocardial infarction; E11.40 Type 2 diabetes mellitus with diabetic neuropathy, unspecified; Z86.73 Personal history of transient ischemic attack (TIA), and cerebral infarction without residual deficits
CPT/HCPCS: 45384; 88305; J2704; J7030

== ENCOUNTER → 2021-08-02 15:08 | Outpatient (BNVA) | payer MEDICARE, MEDICAID, SELFPAY | PROVIDERS: PCP Family Medicine; Visit Provider Family Medicine | DX: I10 Essential (primary) hypertension (principal); E55.9 Vitamin D deficiency, unspecified; M10.9 Gout, unspecified; E11.9 Type 2 diabetes mellitus without complications; E78.5 Hyperlipidemia, unspecified | CPT/HCPCS: 80053; 80061; 82306; 83036; 84550; 85025 ==

== ENCOUNTER → 2021-08-10 10:54 | Outpatient (BNVA) | payer MEDICARE, MEDICAID, SELFPAY | PROVIDERS: PCP Family Medicine; Visit Provider Family Medicine | DX: E87.6 Hypokalemia (principal); E11.65 Type 2 diabetes mellitus with hyperglycemia; E78.5 Hyperlipidemia, unspecified; I10 Essential (primary) hypertension | CPT/HCPCS: 80048 ==

== ENCOUNTER → 2021-08-11 09:13 | Outpatient (BNVA) | payer MEDICARE, MEDICAID, SELFPAY | PROVIDERS: PCP Family Medicine; Visit Provider Internal Medicine Pulmonary Disease | DX: M25.641 Stiffness of right hand, not elsewhere classified (principal); M25.642 Stiffness of left hand, not elsewhere classified; I31.3 Pericardial effusion (noninflammatory); Z87.09 Personal history of other diseases of the respiratory system; Z09 Encounter for follow-up examination after completed treatment for conditions other than malignant neoplasm; I10 Essential (primary) hypertension; E78.5 Hyperlipidemia, unspecified; E66.9 Obesity, unspecified; Z68.37 Body mass index [BMI] 37.0-37.9, adult; G47.33 Obstructive sleep apnea (adult) (pediatric) | CPT/HCPCS: 85651; 99204 ==

== ENCOUNTER → 2021-08-16 08:39 | Outpatient (BNVA) | payer MEDICARE, MEDICAID, SELFPAY | PROVIDERS: PCP Family Medicine; Visit Provider Surgery | DX: Z09 Encounter for follow-up examination after completed treatment for conditions other than malignant neoplasm (principal); K52.9 Noninfective gastroenteritis and colitis, unspecified | CPT/HCPCS: 99213 ==

== ENCOUNTER → 2021-08-19 10:13 | Outpatient (BNVA) | payer MEDICARE, MEDICAID, SELFPAY | PROVIDERS: PCP Family Medicine; Visit Provider Family Medicine | DX: E87.6 Hypokalemia (principal) | CPT/HCPCS: 80048 ==

== ENCOUNTER 2021-08-20 09:54 | Emergency (ER) | payer MEDICARE, MEDICAID, SELFPAY ==
[2021-08-20 10:25] VITALS: BP 140/80; PULSE 71; RESP 16; TEMP 36.4; O2SAT 93; BMI 35.0
--- NOTE | 2021-08-20 10:46 | ECG_ITS ---
[facility] Test Date: 2021-08-20 Pat Name: Danya Reed Department: Room: Gender: Female Automation Tech: : 1945 Requested By: Kerri Aguirre Order Number: [id number] Joseph MD: Te Wei M.D. Measurements Intervals [place] Rate: 67 P: 37 TN: 201 QRS: -31 QRSD: 90 T: 19 QT: 435 QTc: 461 Interpretive Statements SINUS RHYTHM WITH OCCASIONAL SUPRAVENTRICULAR PREMATURE COMPLEXES LEFT AXIS DEVIATION [QRS AXIS < -30] LOW QRS VOLTAGE IN PRECORDIAL LEADS [QRS DEFLECTION < 1.0 mV IN CHEST LEADS] POSSIBLE ANTERIOR MYOCARDIAL INFARCTION , PROBABLY OLD [30 ms Q WAVE IN V3/V4, OR R < 0.2 mV IN V4] Compared to ECG 06/29/2021 18:42:16 Left-axis deviation now present Myocardial infarct finding still present Electronically Signed On 08-21-2021 12:32:46 CDT by Te Wei M.D. [email or web address]
[2021-08-20 10:51] LABS: Basophils # 0.1 10^3/uL (0.0-0.1); Basophils % 0.7 %; Eosinophils # 0.1 10^3/uL (0.0-0.8); Eosinophils % 1.4 %; Hematocrit 40.2 % (37.0-47.0); Hemoglobin 13.9 g/dL (11.5-15.3); Lymphocytes # 2.3 10^3/uL (0.8-4.8); Lymphocytes % 22.8 %; Mean Corpuscular HGB Conc 34.6 g/dL (30.0-36.0); Mean Corpuscular Hemoglobin 28.7 pg (28.0-34.0); Mean Corpuscular Volume 83.1 fl (81-99); Mean Platelet Volume 10.2 fL (7.4-10.4); Monocytes # 0.8 10^3/uL (0.2-0.9); Monocytes % 7.6 %; Neutrophils # 6.83 10^3/uL (1.8-7.7); Neutrophils % 67.2 %; Nucleated Red Blood Cells % 0 %; Platelet Count 308 10^3/cmm (130-400); Red Blood Count 4.84 10^6/uL (4.1-5.3); Red Cell Distribution Width 13.7 % (12.1-15.1); White Blood Count 10.2 10^3/uL (4.0-10.0)
--- NOTE | 2021-08-20 10:57 | W.ED.RECABL ---
HPI - Recheck/Abnormal Lab/Rx General: Chief Complaint: Recheck/Abnormal Lab/Rx Stated Complaint: abnormal labs Time Seen by Provider: 08/20/21 10:43 Source: patient Mode of arrival: ambulatory Limitations: no limitations History of Present Illness: Patient is a nice 76-year-old female who presents to ED today along with her stating they were sent to the ED for evaluation of low potassium. Patient states she had labs drawn yesterday which showed a potassium of 2.8. Patient states she is completely asymptomatic. She states the only reason she is here is because she was told to come here by primary care. Patient states she does take Lasix daily. She states she takes potassium tablets twice daily at home. MD complaint: abnormal lab Returns today for: called because of abnormal lab/test Symptoms since prior visit: no new symptoms Context: called for abnormal lab result Associated symptoms: none Review of Systems Const: Denies: fever(s), chills, body aches, fatigue or malaise Eyes: Denies: change in vision or blurry vision Card: Denies: chest pain, palpitations, irregular heart rhythm, lightheadedness, syncope or dyspnea on exertion Resp: Denies: dyspnea, productive cough or pain on inspiration GI: Denies: abdominal pain, nausea, vomiting, heartburn or diarrhea : Denies: dysuria Musc: Denies: neck pain, back pain, extremity pain, joint pain or muscle cramps Skin/Breast: Denies: rash Neuro: Denies: headache(s), dizziness or confusion PFSH ED PFSH: Medical History Anxiety BMI 37.0-37.9, adult Chest pressure CHF (congestive heart failure) Chronic diarrhea Dyslipidemia Gout History of CVA (cerebrovascular accident) Hypertension Inflammatory bowel disease Obesity Radiculopathy, lumbosacral region Sleep apnea Vitamin D insufficiency Surgical History History of colonoscopy 2013 History of tubal ligation 1974 Hx of colonoscopy 07/29/21 Family History Mother Hyperlipidemia Heart disease Social History Smoking and tobacco status: never smoked Second hand smoke exposure: No Smoking risk assessment/counseling performed?: No Alcohol intake: never Desire information about alcohol rehabilitation?: No Counseling given: No Desire information about substance/drug rehabilitation?: No Counseling given: No Caregiver/support person: No Lives independently: Yes Household members: spouse Housing: House Marital status: Number of children: 5 service: No Current occupational status: unemployed and retired History of recent travel: No Current gender identity: Female Physical Exam Const: COMMON NORMALS: no acute distress, patient oriented x3, no limitations and alert GENERAL APPEARANCE: cooperative NUTRITIONAL APPEARANCE: overweight ORIENTATION/CONSCIOUSNESS: Yes awake, Yes oriented to person, Yes oriented to place and Yes oriented to time Resp: COMMON NORMALS: normal respiratory effort and clear to auscultation bilaterally AUSCULTATION: clear to auscultation bilaterally Cardio: COMMON NORMALS: regular rate and regular rhythm RATE: regular rate RHYTHM: regular rhythm GI: COMMON NORMALS: Normal to inspection, nondistended, normoactive bowel sounds present, Soft to palpation and non-tender PALPATION: Yes Soft to palpation Extremity: COMMON NORMALS: normal to inspection GENERAL: Yes normal exam except as noted Neuro: MERY COMA SCALE: document GCS findings Mery coma scale eye opening: Spontaneous [place] coma scale verbal response: Orientated Mery coma scale motor response: Obey commands Mery coma scale total score: 15 COMMON NORMALS: patient oriented x3, moves all extremities, no focal motor deficits, no sensory deficits noted and gait normal SENSORIUM/ORIENTATION: Yes alert, Yes oriented to person, Yes oriented to place and Yes oriented to time Skin: COMMON NORMALS: no rashes or lesions noted GENERAL SKIN EXAM: no rashes or lesions noted Course Vital Signs: Vital signs: Vital Signs Temperature 97.5 F L 08/20/21 10:25 Pulse Rate 71 08/20/21 10:25 Respiratory Rate 16 08/20/21 10:25 Blood Pressure 140/80 08/20/21 10:25 Pulse Oximetry 93 08/20/21 10:25 MDM - Recheck/Abnormal Lab/Rx Medical Decision Making Patient's potassium here is 3.3. She has a normal mag. She was given 60 meq oral supplementation. Recommend she take her potassium supplements at home 3 times daily over the next 3 days. Recommend she have her potassium rechecked through primary care early next week. Return to ED precautions verbally given. EKG showing no changes when compared to previous. Lab Data : 08/20/21 10:30 08/20/21 10:30 Laboratory Results WBC 10.2 10^3/uL (4.0-10.0) H 08/20/21 10:30 RBC 4.84 10^6/uL (4.1-5.3) 08/20/21 10:30 Hgb 13.9 g/dL (11.5-15.3) 08/20/21 10:30 Hct 40.2 % (37.0-47.0) 08/20/21 10:30 MCV 83.1 fl (81-99) 08/20/21 10:30 MCH 28.7 pg (28.0-34.0) 08/20/21 10:30 MCHC 34.6 g/dL (30.0-36.0) 08/20/21 10:30 RDW 13.7 % (12.1-15.1) 08/20/21 10:30 Plt Count 308 10^3/cmm (130-400) 08/20/21 10:30 MPV 10.2 fL (7.4-10.4) 08/20/21 10:30 Neut % (Auto) 67.2 % 08/20/21 10:30 Lymph % (Auto) 22.8 % 08/20/21 10:30 [place] % (Auto) 7.6 % 08/20/21 10:30 Eos % (Auto) 1.4 % 08/20/21 10:30 Baso % (Auto) 0.7 % 08/20/21 10:30 Neut # (Auto) 6.83 10^3/uL (1.8-7.7) 08/20/21 10:30 Lymph # (Auto) 2.3 10^3/uL (0.8-4.8) 08/20/21 10:30 [place] # (Auto) 0.8 10^3/uL (0.2-0.9) 08/20/21 10:30 Eos # (Auto) 0.1 10^3/uL (0.0-0.8) 08/20/21 10:30 Baso # (Auto) 0.1 10^3/uL (0.0-0.1) 08/20/21 10:30 Nucleated RBC % (auto) 0 % 08/20/21 10:30 Nucleated RBCs # 0.0 /100WBC 08/20/21 10:30 Sodium 139 mmol/L (136-145) 08/20/21 10:30 Potassium 3.3 mmol/L (3.5-5.1) L 08/20/21 10:30 Chloride 96 mmol/L (98-107) L 08/20/21 10:30 Carbon Dioxide 32 mmol/L (22-29) H 08/20/21 10:30 Anion Gap 14.3 (5-19) 08/20/21 10:30 BUN 22 mg/dL (8-23) 08/20/21 10:30 Creatinine 1.1 mg/dL (0.5-0.9) H 08/20/21 10:30 GFR Calculation Not Reportable 08/20/21 10:30 Glucose 106 mg/dL (65-115) 08/20/21 10:30 Calculated Osmolality 292 mOsm/kg (285-295) 08/20/21 10:30 Calcium 9.0 mg/dL (8.5-10.5) 08/20/21 10:30 Magnesium 2.2 mg/dL (1.7-2.3) 08/20/21 10:30 Total Bilirubin 0.8 mg/dL (0.15-1.2) 08/20/21 10:30 AST 29 U/L (0-32) 08/20/21 10:30 ALT 16 U/L (0-33) 08/20/21 10:30 Alkaline Phosphatase 115 IU/L (35-105) H 08/20/21 10:30 Total Protein 7.1 g/dL (6.6-8.7) 08/20/21 10:30 Albumin 3.7 g/dL (3.5-5.2) 08/20/21 10:30 Globulin 3.4 g/dL (1.3-4.6) 08/20/21 10:30 Discharge Plan Discharge Patient Disposition: Home Clinical Impression: Hypokalemia Condition: Stable Prescriptions: No Action amlodipine 10 mg tablet 10 mg PO DAILY Qty: 90 3RF duloxetine [Cymbalta] 20 mg capsule,delayed release(DR/EC) 20 mg PO BID Qty: 60 2RF isosorbide mononitrate 30 mg tablet extended release 24 hr 30 mg PO BID Qty: 60 2RF nitroglycerin [Nitrostat] 0.4 mg tablet, sublingual 0.4 mg SUBLINGUAL Q5M PRN (Reason: chest pain) Qty: 25 3RF Rx Instructions: Use as needed for chest discomfort. coenzyme Q10 [CoQ-10] 100 mg capsule 100 mg PO DAILY 0RF furosemide 80 mg tablet 80 mg PO BID 0RF febuxostat [Uloric] 40 mg tablet 40 mg PO DAILY Qty: 30 2RF lovastatin 20 mg tablet 20 mg PO DAILY Qty: 30 3RF Ozempic 0.25 mg or 0.5 mg(2 mg/1.5 mL) pen injector 0.25 mg SUBCUT Q7D Qty: 1.5 2RF Hold Instructions: Doctor's Order Rx Instructions: on mon metoprolol succinate 50 mg tablet extended release 24 hr See Rx Instructions .ROUTE .COMPLEX Qty: 30 2RF Dose Instruction: TAKE ONE TABLET BY MOUTH EVERY DAY Rx Instructions: TAKE ONE TABLET BY MOUTH EVERY DAY aspirin 81 mg Tablet,Delayed Release (Dr/Ec) 81 mg PO .THREE TIMES A WEEK 0RF Hold Instructions: Resume on 08/01/21. potassium chloride 10 mEq tablet extended release 10 meq PO BID 0RF Discharge Orders: Discharge ED (Routine); Ordered 08/20/21 Ordered By: Kerri Aguirre Referrals: Darlene Nuñez MD [Primary Care Provider] - Patient Instructions: Hypokalemia (ED) Activity Restrictions/Additional Instructions: As we discussed your potassium was mildly low today. You were given oral potassium here in the emergency department. As we discussed I want you to take your potassium tablets 3 times daily instead of your normal twice daily over the next 3 days. Contact primary care to have potassium checked early next week. Coding Level of Care Code ED Clinical Services Assistant for [facility] Bust[facility]
[2021-08-20 11:14] LABS: Albumin Level 3.7 g/dL (3.5-5.2); Alkaline Phosphatase 115 IU/L (35-105); Blood Urea Nitrogen 22 mg/dL (8-23); Carbon Dioxide 32 mmol/L (22-29); Chloride 96 mmol/L (98-107); Globulin 3.4 g/dL (1.3-4.6); Glucose 106 mg/dL (65-115); Magnesium 2.2 mg/dL (1.7-2.3); Osmolality Calculated 292 mOsm/kg (285-295); Sodium 139 mmol/L (136-145); Total Bilirubin 0.8 mg/dL (0.15-1.2); Total Protein 7.1 g/dL (6.6-8.7)
[2021-08-20 11:15] LABS: Alanine Aminotransferase 16 U/L (0-33); Anion Gap 14.3 (5-19); Aspartate Amino Transferase 29 U/L (0-32); Potassium 3.3 mmol/L (3.5-5.1)
[2021-08-20] MEDS: potassium chloride ER 20 mEq Tablet 60 MEQ PO (11:26)
== END 2021-08-20 12:11 | disposition home or self-care (01) ==
PROVIDERS: Emergency Provider Physician Assistant; PCP Family Medicine
DX: E87.6 Hypokalemia (principal); Z79.82 Long term (current) use of aspirin; I11.0 Hypertensive heart disease with heart failure; I50.9 Heart failure, unspecified; E78.5 Hyperlipidemia, unspecified; Z86.73 Personal history of transient ischemic attack (TIA), and cerebral infarction without residual deficits
CPT/HCPCS: 80053; 83735; 85025; 93005; 99283

== ENCOUNTER 2021-08-24 12:59 | Outpatient (CLI) | payer MEDICARE, MEDICAID, SELFPAY ==
--- NOTE | 2021-08-24 14:00 | CT_ITS ---
WS: [id number] CT CHEST WITHOUT INTRAVENOUS CONTRAST HISTORY: assess resolution of pleural effusion TECHNIQUE: Contiguous 5 mm axial imaging performed on the thorax. Coronal and sagittal reformats are submitted. All CT scans at [facility] use at least one of these dose optimization techniques: automated exposure control; mA and/or kV adjustment per patient size (includes targeted exams where dose is matched to clinical indication); or iterative reconstruction. CONTRAST: None DLP: 424.18 mGy.cm COMPARISON: 06/30/2021 Lungs and central airway: Near complete resolution of the previously described bilateral opacificatio ns and mild groundglass opacifications since 06/30/2021. There is one single subsolid opacification me asuring 10 mm in the RIGHT upper lobe persisting. This abuts the fissure and has decreased in size an d is probably an area of 2. The conglomerate opacifications at the lung bases have resolved. Pleura: Normal. No pleural effusion. Heart and pericardium: Normal size heart. There is an small but diffuse pericardial effusion. This felder s slightly decreased in size since the prior exam. Mediastinum and florence: No mediastinal or hilar adenopathy. Vessels: Mild atherosclerosis aorta. Normal size pulmonary artery. Chest wall and lower neck: No soft tissue masses. Upper abdomen: Previously described adrenal myelolipoma is reidentified measuring 3.2 x 2.4 cm. Osseous structures: Mild thoracic spondylosis. CT/CT chest wo con [id number] IMPRESSION: 1. Near complete resolution of the previously described pulmonary opacificatio ns on 06/30/2021. 2. There is a single opacification measuring 10 mm in the RIGHT upper lobe per sisting which is probably developing scar formation. 3. No adenopathy. 4. Small persistent but improved pericardial effusion. 5. No residual pleural effusion. 6. Stable LEFT adrenal myelolipoma.
== END 2021-08-24 13:00 | disposition home or self-care (01) ==
LOC: RAD 13:00
PROVIDERS: PCP Family Medicine; Visit Provider Internal Medicine Pulmonary Disease
DX: I31.3 Pericardial effusion (noninflammatory) (principal); Z87.09 Personal history of other diseases of the respiratory system; M25.641 Stiffness of right hand, not elsewhere classified; M25.642 Stiffness of left hand, not elsewhere classified
CPT/HCPCS: 71250; 82164; 86140; 86160; 86162; 86200; 86235; 86255; 86376; 86431

== ENCOUNTER → 2021-08-25 14:19 | Outpatient (BNVA) | payer MEDICARE, MEDICAID, SELFPAY | PROVIDERS: PCP Family Medicine; Visit Provider Family Medicine | DX: E87.6 Hypokalemia (principal) | CPT/HCPCS: 80048 ==

== ENCOUNTER → 2021-10-27 14:06 | Outpatient (BNVA) | payer MEDICARE, MEDICAID, SELFPAY | PROVIDERS: PCP Nurse Practitioner; Visit Provider Internal Medicine | DX: I10 Essential (primary) hypertension (principal); R60.9 Edema, unspecified; R07.89 Other chest pain; R06.00 Dyspnea, unspecified; G47.30 Sleep apnea, unspecified; E78.5 Hyperlipidemia, unspecified; E66.9 Obesity, unspecified; Z68.37 Body mass index [BMI] 37.0-37.9, adult; E11.65 Type 2 diabetes mellitus with hyperglycemia; Z79.84 Long term (current) use of oral hypoglycemic drugs | CPT/HCPCS: 99214 ==

== ENCOUNTER → 2021-11-18 10:27 | Outpatient (BNVA) | payer MEDICARE, MEDICAID, SELFPAY | PROVIDERS: PCP Nurse Practitioner; Visit Provider Nurse Practitioner | DX: M54.17 Radiculopathy, lumbosacral region (principal); R07.89 Other chest pain; I10 Essential (primary) hypertension; E87.6 Hypokalemia; E78.5 Hyperlipidemia, unspecified; E11.65 Type 2 diabetes mellitus with hyperglycemia; R26.81 Unsteadiness on feet; I50.9 Heart failure, unspecified; E11.9 Type 2 diabetes mellitus without complications | CPT/HCPCS: 80053; 80061; 83036 ==

== ENCOUNTER 2022-01-26 09:44 | Outpatient (CLI) | payer MEDICARE, MEDICAID, SELFPAY ==
--- NOTE | 2022-01-26 10:15 | USCV_ITS ---
BriannaDanya friedman Age: 76 Gender: F : 1945 Exam Date: 01/26/2022 10:07 Ordering Phys: Chioma Doan Technologist: Edmar Loza Exam Location: [facility] [place] Indication: pericardial effusion BP: 121 / 70 HR: 63 Rhythm: Sinus Technical Quality: Adequate MEASUREMENTS (Male / Female) Normal Values 2D ECHO LV Diastolic Diameter PLAX 2.9 cm 4.2 - 5.9 / 3.9 - 5.3 cm LV Systolic Diameter PLAX 1.8 cm IVS Diastolic Thickness 0.9 cm 0.6 - 1.0 / 0.6 - 0.9 cm IVS Systolic Thickness 1.0 cm LVPW Diastolic Thickness 1.2 cm 0.6 - 1.0 / 0.6 - 0.9 cm LVPW Systolic Thickness 1.4 cm LVOT Diameter 2.1 cm LV Ejection Fraction 2D Teich 70.5 % LV Ejection Fraction MOD 2C 79.9 % LV Ejection Fraction 2C AL 80.0 % LA Diameter 4.5 cm LA Width 3.3 cm LA Height 5.3 cm RA Width 3.9 cm RA Height 4.9 cm Aorta at Sinotubular Diameter 2.3 cm IVC Diameter 1.1 cm M-MODE Aortic Annulus Diameter 3.1 cm LA Ao Ratio MM 1.5 MV E Point Septal Separation 0.7 cm DOPPLER Right Atrial Pressure 3.0 mmHg FINDINGS Left Ventricle Right Ventricle Right Atrium Left Atrium Mitral Valve Aortic Valve Tricuspid Valve Pulmonic Valve Pericardium Aorta IVC CONCLUSIONS There is a limited echocardiogram performed to assess pericardial effusion. Small sized pericardial effusion is seen. LV systolic function is normal. Compared to prior echocardiogram from 06/2021, pericardial effusion has improved and is small sized now Nikunj Milan MD (Electronically Signed) Final Date: 26 January 2022 18:00 S
== END 2022-01-26 09:45 | disposition home or self-care (01) ==
LOC: RAD 09:45
PROVIDERS: PCP Nurse Practitioner; Visit Provider Nurse Practitioner Family
DX: I31.39 Other pericardial effusion (noninflammatory) (principal); I50.9 Heart failure, unspecified
CPT/HCPCS: 93308

== ENCOUNTER → 2022-02-09 10:04 | Outpatient (BNVA) | payer MEDICARE, MEDICAID, SELFPAY | PROVIDERS: PCP Nurse Practitioner; Visit Provider Nurse Practitioner | DX: M54.17 Radiculopathy, lumbosacral region (principal); R07.89 Other chest pain; I10 Essential (primary) hypertension; E78.5 Hyperlipidemia, unspecified; E87.6 Hypokalemia; E11.65 Type 2 diabetes mellitus with hyperglycemia; R26.81 Unsteadiness on feet; M10.9 Gout, unspecified; E11.9 Type 2 diabetes mellitus without complications | CPT/HCPCS: 80053; 81000; 84443; 84550 ==

== ENCOUNTER → 2022-03-14 11:37 | Outpatient (BNVA) | payer MEDICARE, MEDICAID, SELFPAY | PROVIDERS: PCP Nurse Practitioner; Visit Provider Internal Medicine | DX: I11.0 Hypertensive heart disease with heart failure (principal); I50.9 Heart failure, unspecified | CPT/HCPCS: 99214 ==

== ENCOUNTER → 2022-04-05 14:38 | Outpatient (BNVA) | payer MEDICARE, MEDICAID, SELFPAY | PROVIDERS: PCP Nurse Practitioner; Visit Provider Nurse Practitioner | DX: M25.511 Pain in right shoulder (principal); M25.521 Pain in right elbow; E55.9 Vitamin D deficiency, unspecified; E11.9 Type 2 diabetes mellitus without complications; E11.65 Type 2 diabetes mellitus with hyperglycemia | CPT/HCPCS: 73030; 73080 ==

== ENCOUNTER → 2022-04-06 08:50 | Outpatient (BNVA) | payer MEDICARE, MEDICAID, SELFPAY | PROVIDERS: PCP Nurse Practitioner; Visit Provider Nurse Practitioner | DX: E55.9 Vitamin D deficiency, unspecified (principal); E11.65 Type 2 diabetes mellitus with hyperglycemia | CPT/HCPCS: 80053; 80061; 82306; 82607; 83036 ==

== ENCOUNTER → 2022-07-25 10:12 | Outpatient (BNVA) | payer MEDICARE, MEDICAID, SELFPAY | PROVIDERS: PCP Nurse Practitioner; Visit Provider Nurse Practitioner | DX: E55.9 Vitamin D deficiency, unspecified (principal); E11.9 Type 2 diabetes mellitus without complications; E78.5 Hyperlipidemia, unspecified; E11.65 Type 2 diabetes mellitus with hyperglycemia; I10 Essential (primary) hypertension | CPT/HCPCS: 80053; 80061; 82306; 83036 ==

== ENCOUNTER → 2022-08-03 09:57 | Outpatient (BNVA) | payer MEDICARE, MEDICAID, SELFPAY | PROVIDERS: PCP Nurse Practitioner; Visit Provider Nurse Practitioner | DX: M47.892 Other spondylosis, cervical region (principal) | CPT/HCPCS: 72040 ==

== ENCOUNTER 2022-08-21 10:19 | Emergency (ER) | payer MEDICARE, MEDICAID, SELFPAY ==
[2022-08-21 11:01] VITALS: BP 151/76; PULSE 67; RESP 17; TEMP 37; O2SAT 94
--- NOTE | 2022-08-21 11:07 | W.ED.NECK ---
HPI - Neck Pain/Injury General: Chief Complaint: Neck Pain/Injury Stated Complaint: Neck/Right arm pain Time Seen by Provider: 08/21/22 10:48 Source: patient Mode of arrival: ambulatory Limitations: no limitations History of Present Illness: Patient is a 77-year-old female presents to ED today with a complaint of neck pain radiating into her right shoulder. Patient states she has had symptoms for several weeks now and has been following up with her primary care provider has been diagnosed with cervical radiculopathy. She states she has been treated with Cymbalta which initially did offer some relief however recently patient has not been able to find any form of relief. She states pain keeps her up at night. Pain seems to be worse with movement of her neck and right shoulder. She has not noticed any numbness, tingling to her extremity. She has not noticed any color or temperature changes to the arm. She states she does have an appointment scheduled with Dr. Mosqueda later this month. MD complaint: neck pain Onset (ago): week(s) Severity: severe Quality: burning Duration: constant Relieving factors: none Exacerbating factors: movement of extremity and movement of neck Associated symptoms: Reports no associated symptoms; Denies difficulty walking or headache(s) Treatments prior to arrival: other (cymbalta) Review of Systems Const: Denies: fever(s), chills, body aches, fatigue or malaise Eyes: Denies: change in vision or blurry vision Card: Denies: chest pain or palpitations Resp: Denies: dyspnea Musc: Reports: neck pain, joint pain (R shoulder) and limited range of motion (R shoulder); Denies: back pain, extremity pain, extremity swelling, joint swelling, joint redness or joint warmth Skin/Breast: Denies: rash Neuro: Denies: headache(s), numbness in extremities, sensory changes or difficulty walking PFS ED PFSH: Medical History Anxiety BMI 37.0-37.9, adult Chest pressure CHF (congestive heart failure) Chronic diarrhea Dyslipidemia Gout History of CVA (cerebrovascular accident) Hypertension Inflammatory bowel disease Obesity Radiculopathy, lumbosacral region Sleep apnea 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 Vitamin D insufficiency Surgical History History of colonoscopy 2013 History of tubal ligation 1974 Hx of colonoscopy 07/29/21 Family History Mother Hyperlipidemia Heart disease Social History Smoking and tobacco status: never smoked Second hand smoke exposure: No Smoking risk assessment/counseling performed?: No Alcohol intake: never Desire information about alcohol rehabilitation?: No Counseling given: No Substance/Drug Use: never Desire information about substance/drug rehabilitation?: No Counseling given: No Caregiver/support person: No Lives independently: Yes Household members: spouse Housing: House Marital status: Number of children: 5 service: No Current occupational status: unemployed and retired Do you think of yourself as: Straight/Heterosexual Current gender identity: Female Physical Exam Const: COMMON NORMALS: no acute distress, patient oriented x3, no limitations and alert GENERAL APPEARANCE: cooperative NUTRITIONAL APPEARANCE: obese ORIENTATION/CONSCIOUSNESS: Yes awake, Yes oriented to person, Yes oriented to place and Yes oriented to time HENMT: COMMON NORMALS: normocephalic and atraumatic HEAD & SCALP: normal to inspection, normocephalic and atraumatic FACE & SINUS: normal facial exam Eye: GENERAL EYE: appearance normal, both eyes and all related structures and normal light reflex DIRECT OPHTHALMOSCOPY: Yes normal light reflex Neck/C-Spine: COMMON NORMALS: no lymphadenopathy, supple and no meningeal signs GENERAL: Yes normal visual inspection CERVICAL SPINE: Yes pain with cervical ROM, Yes Cervical spine tenderness, No step off deformity, No Paracervical muscle tenderness and No Trapezius muscle tenderness Resp: COMMON NORMALS: normal respiratory effort and clear to auscultation bilaterally AUSCULTATION: clear to auscultation bilaterally Cardio: COMMON NORMALS: regular rate and regular rhythm RATE: regular rate RHYTHM: regular rhythm Back/Pelvis: COMMON NORMALS: thoracic and lumbar spine normal to inspection, no thoracic nor lumbar tenderness and thoraco-lumbar ROM normal Extremity: COMMON NORMALS: capillary refill normal, no joint enlargement, no clubbing, cyanosis or edema, no calf tenderness and no pedal edema GENERAL: Yes normal exam except as noted RIGHT UPPER EXTREMITY: Yes shoulder joint (movement of R shoulder produces neck pain) Right shoulder: Yes Right shoulder joint neurovascular exam (normal) Neuro: MERY COMA SCALE: document GCS findings Mery coma scale eye opening: Spontaneous Mery coma scale verbal response: Orientated [place] coma scale motor response: Obey commands Mery coma scale total score: 15 COMMON NORMALS: patient oriented x3, CN's II-XII intact bilaterally, moves all extremities, no focal motor deficits, no sensory deficits noted and gait normal SENSORIUM/ORIENTATION: Yes alert, Yes oriented to person, Yes oriented to place and Yes oriented to time MENINGEAL SIGNS: Yes no meningeal signs Skin: COMMON NORMALS: no rashes or lesions noted GENERAL SKIN EXAM: no rashes or lesions noted Course Vital Signs: Vital signs: Vital Signs Temperature 98.6 F 08/21/22 11:01 Pulse Rate 66 08/21/22 11:51 Respiratory Rate 16 08/21/22 11:51 Blood Pressure 151/76 08/21/22 11:51 Pulse Oximetry 94 08/21/22 11:51 Oxygen Delivery Me thod Room Air 08/21/22 11:01 MDM - Neck Pain/Injury Medical Decision Making History is consistent with a cervical radiculopathy. CT scan showing multilevel degenerative changes. She does have severe foraminal stenosis at the right C4-C5 level. This would make sense given her history and physical presentation. Patient states she is currently taking Cymbalta for pain. We will add steroids and a muscle relaxer. She can take OTC anti-inflammatories. Continue current plan to follow-up with Dr. Mosqueda's office on 08/30. Patient verbalizes understanding. Lab Data Radiology Impressions Cervical Spine CT 08/21/22 11:12 IMPRESSION: 1. No acute osseous abnormality. 2. Multilevel degenerative changes. Discharge Plan Discharge Patient Disposition: Home Clinical Impression: Cervical radiculopathy Condition: Stable Prescriptions: New Medrol (Momo) 4 mg tablets,dose pack See Rx Instructions .ROUTE .COMPLEX Qty: 21 0RF Rx Instructions: orally per package directions Zanaflex 4 mg capsule 4 mg PO Q8H PRN (Reason: muscle spasticity) Qty: 14 0RF No Action nitroglycerin [Nitrostat] 0.4 mg tablet, sublingual 0.4 mg SUBLINGUAL Q5M PRN (Reason: chest pain) Qty: 25 3RF Rx Instructions: Use as needed for chest discomfort. (DME) DME: Walker Unit See Rx Instructions .ROUTE .MEDSUPPLY Qty: 1 0RF Rx Instructions: Code E0143 and E0156 walker 4 wheels and seat zonisamide 50 mg capsule 50 mg PO BID Qty: 60 2RF duloxetine [Cymbalta] 60 mg capsule,delayed release(DR/EC) 60 mg PO BID Qty: 60 2RF Rx Instructions: dose increase coenzyme Q10 [CoQ-10] 100 mg capsule 100 mg PO DAILY Ozempic 0.25 mg or 0.5 mg(2 mg/1.5 mL) pen injector 0.25 mg SUBCUT .weekly Qty: 1.5 2RF Hold Instructions: Doctor's Order potassium chloride 10 mEq capsule, extended release 10 meq PO TID Qty: 90 2RF metoprolol succinate 50 mg tablet extended release 24 hr 50 mg PO DAILY Qty: 30 2RF isosorbide mononitrate 30 mg tablet extended release 24 hr 30 mg PO BID Qty: 60 2RF furosemide 40 mg tablet 40 mg PO DAILY Qty: 30 2RF fenofibrate nanocrystallized [Tricor] 145 mg tablet 145 mg PO DAILY Qty: 30 2RF Rx Instructions: stop Lovastatin due to muscle pain febuxostat [Uloric] 40 mg tablet 40 mg PO DAILY Qty: 30 2RF cholecalciferol (vitamin D3) 125 mcg (5,000 unit) capsule 125 mcg PO DAILY Qty: 30 2RF lidocaine 5 % adhesive patch,medicated 2 patch topical DAILY Qty: 60 2RF Rx Instructions: leave on most painful area for up to 12 hrs amlodipine 10 mg tablet 10 mg PO DAILY Qty: 90 3RF aspirin 81 mg Tablet,Delayed Release (Dr/Ec) 81 mg PO .THREE TIMES A WEEK Hold Instructions: Resume on 08/01/21. 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
--- NOTE | 2022-08-21 11:12 | CTR_ITS ---
PROCEDURE INFORMATION: Exam: CT Cervical Spine Without Contrast Exam date and time: 08/21/2022 11:31 AM Age: 77 years old Clinical indication: Neck pain and radicular pain (radiculopathy); Cervical region; Additional info: Worsening neck pain, R shoulder radicular pain TECHNIQUE: Imaging protocol: Computed tomography of the cervical spine without contrast. Radiation optimization: All CT scans at this facility use at least one of these dose optimization techniques: automated exposure control; mA and/or kV adjustment per patient size (includes targeted exams where dose is matched to clinical indication); or iterative reconstruction. REPORTING DATA: Count of CT and Cardiac NM exams in prior 12 months: This patient has received [address] and 0 known cardiac nuclear medicine studies in the 12 months prior to the current study. COMPARISON: CR XR cervical spine 3V* [id number] 08/03/2022 9:56 AM RADIATION DOSE METRICS: Total DLP (mGy-cm): 219.07 FINDINGS: Bones/joints: There is straightening of the cervical spine. This can be due to patient position or muscle spasm. The cervical vertebral bodies maintain height. There is a grade 1 degenerative anterolisthesis at C4-C5 and C7-T1.The facets align normally. There is multilevel bilateral facet arthropathy, most prominently on the right at the C4-C5 level. Disc and uncovertebral joint degeneration at C4-C5 down to C6-C7. Multilevel bilateral degenerative foraminal stenosis of varying degrees, but most severe on the right at C4-C5. No fracture. Lungs: The lung apices are normal. Soft tissues: No acute soft tissue abnormality. CT/CT cervical spin wo con* [id number] IMPRESSION: 1. No acute osseous abnormality. 2. Multilevel degenerative changes.
[2022-08-21] MEDS: morphine 4 mg/mL SDV 1 mL IM (11:48)
[2022-08-21] MEDS: dexamethasone 10 mg/mL INJ 8 MG IM (11:48)
[2022-08-21 11:51] VITALS: BP 151/76; PULSE 66; RESP 16; O2SAT 94
== END 2022-08-21 13:02 | disposition home or self-care (01) ==
PROVIDERS: Emergency Provider Physician Assistant; PCP Nurse Practitioner
DX: M54.12 Radiculopathy, cervical region (principal); Z79.82 Long term (current) use of aspirin; I11.0 Hypertensive heart disease with heart failure; I50.9 Heart failure, unspecified; E78.5 Hyperlipidemia, unspecified; Z86.73 Personal history of transient ischemic attack (TIA), and cerebral infarction without residual deficits
CPT/HCPCS: 72125; 96372; 99284; J1100; J2270

== ENCOUNTER → 2022-08-30 07:57 | Outpatient (BNVA) | payer MEDICARE, MEDICAID, SELFPAY | PROVIDERS: PCP Nurse Practitioner; Referring Provider Nurse Practitioner; Visit Provider Physician Assistant | DX: M47.812 Spondylosis without myelopathy or radiculopathy, cervical region (principal); M47.12 Other spondylosis with myelopathy, cervical region; M47.22 Other spondylosis with radiculopathy, cervical region | CPT/HCPCS: 72050; 99203 ==

== ENCOUNTER → 2022-09-12 13:12 | Outpatient (BNVA) | payer MEDICARE, MEDICAID, SELFPAY | PROVIDERS: PCP Nurse Practitioner; Visit Provider Internal Medicine | DX: I11.0 Hypertensive heart disease with heart failure (principal); I50.9 Heart failure, unspecified; R07.89 Other chest pain; R06.00 Dyspnea, unspecified; G47.30 Sleep apnea, unspecified; E78.5 Hyperlipidemia, unspecified; Z68.37 Body mass index [BMI] 37.0-37.9, adult; E11.65 Type 2 diabetes mellitus with hyperglycemia | CPT/HCPCS: 99214 ==

== ENCOUNTER 2022-09-15 08:58 | Outpatient (CLI) | payer MEDICARE, MEDICAID, SELFPAY ==
--- NOTE | 2022-09-15 10:15 | MR_ITS ---
WS: [id number] MRI CERVICAL SPINE NONCONTRAST HISTORY: neck pain COMPARISON: None available. Technique: Multiplanar, multisequence noncontrast imaging of the cervical spine. Mild curvature cervical spine. Mild diffuse disc space narrowing. Most significant narrowing at C5-6. No marrow edema or fracture. Craniocervical junction, C1 and C2 relationship, odontoid process and soft tissues are normal. C2-C3: Normal. C3-C4: Mild annular disc bulging and osteophytic ridging. Mild bilateral foraminal stenosis. C4-C5: Mild annular disc bulging with mild facet arthritis. Mild foraminal stenosis. C5-C6: Diffuse annular disc bulging with a central protrusion. Complete effacement of ventral CSF wit h moderate facet joint arthritis. Mild central with moderate bilateral foraminal stenosis. C6-C7: Mild annular disc bulging and facet joint arthritis. Very mild foraminal stenosis. C7-T1: Normal. RIGHT parotid 14 mm area of increased T2 signal. This should be further evaluated for possible paroti d mass. Signal abnormality is closely associated with the retromandibular vein. Differential includes parotid mass and retromandibular vein ectasia. MR/MR cervical spin wo con* [id number] IMPRESSION: 1. Mild central with moderate bilateral foraminal stenosis at C5-6. 2. Multilevel facet joint arthritis throughout the cervical spine. 3. Mild foraminal stenosis at C3-4, C4-5 and C6-7. 4. The mass in the RIGHT parotid gland. Differential includes ectatic and poss ibly thrombosis of the RIGHT retromandibular vein or parotid mass. Consider ult rasound evaluation of the RIGHT parotid gland.
== END 2022-09-15 08:59 | disposition home or self-care (01) ==
PROVIDERS: PCP Nurse Practitioner; Visit Provider Physician Assistant
DX: M47.12 Other spondylosis with myelopathy, cervical region (principal); M47.22 Other spondylosis with radiculopathy, cervical region; M48.02 Spinal stenosis, cervical region; K11.8 Other diseases of salivary glands
CPT/HCPCS: 72141

== ENCOUNTER → 2022-09-21 09:49 | Outpatient (BNVA) | payer MEDICARE, MEDICAID, SELFPAY | PROVIDERS: PCP Nurse Practitioner; Visit Provider Physician Assistant | DX: M75.41 Impingement syndrome of right shoulder (principal); M47.812 Spondylosis without myelopathy or radiculopathy, cervical region; M50.30 Other cervical disc degeneration, unspecified cervical region | CPT/HCPCS: 20610; 99214; J1040; J2795 ==

== ENCOUNTER → 2022-10-10 10:57 | Outpatient (BNVA) | payer MEDICARE, MEDICAID, SELFPAY | PROVIDERS: PCP Nurse Practitioner; Visit Provider Nurse Practitioner | DX: E11.9 Type 2 diabetes mellitus without complications (principal); E55.9 Vitamin D deficiency, unspecified | CPT/HCPCS: 80053; 80061; 82306; 83036 ==

== ENCOUNTER → 2022-12-27 15:17 | Outpatient (BNVA) | payer MEDICARE, MEDICAID, SELFPAY | PROVIDERS: PCP Nurse Practitioner; Visit Provider Nurse Practitioner | DX: E11.9 Type 2 diabetes mellitus without complications (principal) | CPT/HCPCS: 80053; 83036 ==

== ENCOUNTER 2023-02-25 08:30 | Emergency (ER) | payer MEDICARE, MEDICAID, SELFPAY ==
[2023-02-25] VITALS (9 sets, daily range): BP systolic 111–179; BP diastolic 58–106; PULSE 64–68; RESP 16; TEMP 36.4; O2SAT 93–97; BMI 34.3
--- NOTE | 2023-02-25 08:31 | XRR_ITS ---
PROCEDURE INFORMATION: Exam: XR Chest Exam date and time: 02/25/2023 8:58 AM Age: 77 years old Clinical indication: Cough and dyspnea; Additional info: Dyspnea/cough TECHNIQUE: Imaging protocol: Radiologic exam of the chest. Views: 1 view. COMPARISON: CT chest con [id number] 08/24/2021 1:05 PM FINDINGS: Lungs: See Soft tissues finding. Pleural spaces: Unremarkable. No pleural effusion. No pneumothorax. Heart/Mediastinum: Unremarkable. No cardiomegaly. Bones/joints: Unremarkable. Soft tissues: Increased density at the left lung base may be due to overlying soft tissues or an infiltrate. Lateral radiograph recommended better evaluation. XR/XR chest 1V portable [id number] IMPRESSION: Opacity at the left lung base which might be artifactual.
--- NOTE | 2023-02-25 09:03 | ECG_ITS ---
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 Measurements Intervals [place] Rate: 64 P: -4 CO: 162 QRS: -32 QRSD: 77 T: 28 QT: 414 QTc: 429 Interpretive Statements SINUS RHYTHM LOW QRS VOLTAGE IN PRECORDIAL LEADS [QRS DEFLECTION < 1.0 mV IN CHEST LEADS] POSSIBLE ANTERIOR MYOCARDIAL INFARCTION , PROBABLY OLD [30 ms Q WAVE IN V3/V4, OR R < 0.2 mV IN V4] INFERIOR MYOCARDIAL INFARCTION , PROBABLY OLD [40+ ms Q WAVE AND/OR ST/T ABNORMALITY IN II/aVF] Compared to ECG 08/20/2021 11:17:35 Left-axis deviation no longer present Myocardial infarct finding still present Electronically Signed On 02-26-2023 16:27:21 RELIGIOUS STUDIES PROFESSOR by Nikunj Milan M.D. [id number]
[2023-02-25 09:22] LABS: Add Urine Microscopic? NO; Charge for UA Resulting for Rev
[2023-02-25 09:25] LABS: Bilirubin Urine 1+ (Negative); Blood Urine Neg (Negative); Glucose Urine UA Norm (Normal); Ketones Urine 1+ (Negative); Leukocyte Esterase Urine Negative (Negative); Nitrate Urine Negative (Negative); Protein Urine Neg (Negative); Urine Appearance Clear (CLEAR); Urine Color Yellow (Yellow); Urobilinogen Urine Norm (Negative); pH Urine 7 (5-7)
--- NOTE | 2023-02-25 09:41 | CTR_ITS ---
PROCEDURE INFORMATION: Exam: CT Head Without Contrast Exam date and time: 02/25/2023 9:53 AM Age: 77 years old Clinical indication: Other: Right-sided weakness right leg numbness TECHNIQUE: Imaging protocol: Computed tomography of the head without contrast. Radiation optimization: All CT scans at this facility use at least one of these dose optimization techniques: automated exposure control; mA and/or kV adjustment per patient size (includes targeted exams where dose is matched to clinical indication); or iterative reconstruction. COMPARISON: MR cervical spin wo con* [id number] 09/15/2022 9:35 AM RADIATION DOSE METRICS: Total DLP (mGy-cm): 1012.85 FINDINGS: Brain: No hemorrhage. Periventricular white matter lucency represents atherosclerotic encephalopathic changes. Old 9 mm focal infarct in the right basal ganglia. No mass effect. Cerebral ventricles: No ventriculomegaly. Ventricular prominence proportionate to the degree of atrophy observed. Paranasal sinuses: Visualized sinuses are unremarkable. No fluid levels. Mastoid air cells: Visualized mastoid air cells are well aerated. Bones/joints: Unremarkable. No acute fracture. Soft tissues: Unremarkable. CT/CT head wo con* [id number] IMPRESSION: No acute intracranial abnormality.
--- NOTE | 2023-02-25 09:43 | W.ED.WEAKNES ---
HPI - Weakness General: Chief complaint: Weakness Stated complaint: WEAKNESS Time Seen by Provider: 02/25/23 08:30 Source: patient Mode of arrival: ambulatory History of Present Illness: 77-year-old female presents emergency room with complaints of right-sided weakness numbness tingling difficulty walking began last night at around 7 PM. She woke up in the night around midnight and fell due to the right-sided weakness she was able to walk to the cot with assistance per EMS at the scene when they picked her up. Patient does have a history of atrial fibrillation previous HI previous CVA and hypertension. She did not take any of her medications this morning. She denies any chest pain no vomiting or diarrhea no difficulty speech swallowing or vision MD Complaint: focal weakness and difficulty walking Onset (ago): hour(s) (12-13) Duration: constant Severity: moderate Quality: numbness Relieving factors: none Exacerbating factors: none Associated symptoms: Denies chest pain, chills, confusion, melena, decreased appetite, diaphoresis, dysuria, easy bruising, fever(s), headache(s), myalgias, nausea, rash, short of breath, syncope or vomiting Review of Systems Const: Denies: fever(s), chills or diaphoresis Card: Denies: chest pain or syncope Resp: Denies: dyspnea GI: Denies: nausea, vomiting or melena : Denies: dysuria Musc: Denies: neck pain or back pain Skin/Breast: Denies: rash Neuro: Denies: headache(s) or confusion Ian/Lymph: Denies: easy bruising [facility] ED PFSH: Medical History 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 Inflammatory bowel disease Chronic diarrhea CHF (congestive heart failure) Chest pressure Sleep apnea History of CVA (cerebrovascular accident) Dyslipidemia Radiculopathy, lumbosacral region BMI 37.0-37.9, adult Gout Hypertension Anxiety Obesity Vitamin D insufficiency Surgical History Hx of colonoscopy 07/29/21 History of colonoscopy 2013 History of tubal ligation 1974 Family History Mother Hyperlipidemia Heart disease Social History Smoking and tobacco/nicotine status: never used tobacco/nicotine Second hand smoke exposure: No Alcohol intake: never Substance/Drug Use: never Caregiver/support person: No Lives independently: Yes Household members: spouse Housing: House Marital status: Number of children: 5 service: No Current occupational status: unemployed and retired Do you think of yourself as: Straight/Heterosexual Current gender identity: Female Physical Exam Const: COMMON NORMALS: no acute distress GENERAL APPEARANCE: cooperative and comfortable ORIENTATION/CONSCIOUSNESS: Yes awake, Yes oriented to person, Yes oriented to place and Yes oriented to time HENMT: COMMON NORMALS: normocephalic, atraumatic and hearing grossly normal bilaterally HEAD & SCALP: normocephalic and atraumatic Resp: COMMON NORMALS: normal respiratory effort, No retractions, No use of accessory muscles and clear to auscultation bilaterally AUSCULTATION: clear to auscultation bilaterally Cardio: COMMON NORMALS: regular rate, regular rhythm and No murmurs present (Cardio) RATE: regular rate RHYTHM: regular rhythm GI: COMMON NORMALS: Soft to palpation and No hepatosplenomegaly present AUSCULTATION: Yes normoactive bowel sounds PALPATION: Yes Soft to palpation, No Tenderness to palpation present (GI), No Guarding due to palpation present (GI) and Yes No hepatosplenomegaly present Extremity: COMMON NORMALS: normal to inspection, capillary refill normal, no clubbing, cyanosis or edema, no calf tenderness and no pedal edema Neuro: SENSORIUM/ORIENTATION: Yes oriented to person, Yes oriented to place and Yes oriented to time Skin: COMMON NORMALS: no rashes or lesions noted GENERAL SKIN EXAM: no rashes or lesions noted Course Vital Signs: Vital signs: Vital Signs Temperature 97.5 F L 02/25/23 08:32 Pulse Rate 67 02/25/23 13:33 Respiratory Rate 16 02/25/23 13:33 Blood Pressure 136/81 02/25/23 13:33 Pulse Oximetry 95 02/25/23 13:33 Oxygen Delivery Me thod Room Air 02/25/23 08:32 MDM - Weakness Medical Decision Making EKG and cardiac enzymes negative CT of head shows no acute abnormality. There is some old focal infarcts and lacunar infarcts. No other significant issues. He is going to go play a right-sided weakness particular leg she does have a little bit of leg drift. She is outside the window for any intervention for tPA since her symptoms started over 12 hours prior to arrival. She does not have significant enough of stroke score to be a candidate for embolectomy with an NIH of only 2. Will admit for further evaluation for stroke. Medical Records I reviewed the patient's medical records. Lab Data I reviewed the patient's lab results. 02/25/23 10:39 02/25/23 10:39 Radiology Impressions Chest X-Ray 02/25/23 08:31 IMPRESSION: Opacity at the left lung base which might be artifactual. Head CT 02/25/23 09:41 IMPRESSION: No acute intracranial abnormality. Laboratory Results WBC 7.36 10^3/uL (3.29-11.43) 02/25/23 10:39 RBC 5.17 10^6/uL (3.85-5.65) 02/25/23 10:39 Hgb 14.60 g/dL (11.27-16.99) 02/25/23 10:39 Hct 45.2 % (36-47) 02/25/23 10:39 MCV 87.4 fl (85-98) 02/25/23 10:39 MCH 28.2 pg (27-33) 02/25/23 10:39 MCHC 32.3 g/dL (30-55) 02/25/23 10:39 RDW 13.3 % (12.1-15.1) 02/25/23 10:39 Plt Count 285 10^3/cmm (157-399) 02/25/23 10:39 MPV 9.7 fL (7.4-10.4) 02/25/23 10:39 Neut % (Auto) 77.1 % 02/25/23 10:39 Lymph % (Auto) 16.8 % 02/25/23 10:39 [place] % (Auto) 4.9 % 02/25/23 10:39 Eos % (Auto) 0.3 % 02/25/23 10:39 Baso % (Auto) 0.8 % 02/25/23 10:39 Neut # (Auto) 5.67 10^3/uL (1.8-7.7) 02/25/23 10:39 Lymph # (Auto) 1.2 10^3/uL (0.8-4.8) 02/25/23 10:39 [place] # (Auto) 0.4 10^3/uL (0.2-0.9) 02/25/23 10:39 Eos # (Auto) 0.0 10^3/uL (0.0-0.8) 02/25/23 10:39 Baso # (Auto) 0.1 10^3/uL (0.0-0.1) 02/25/23 10:39 Nucleated RBC % (auto) 0 % 02/25/23 10:39 Nucleated RBCs # 0.0 /100WBC 02/25/23 10:39 Sodium 136 mmol/L (136-145) 02/25/23 10:39 Potassium 3.9 mmol/L (3.5-5.1) 02/25/23 10:39 Chloride 104 mmol/L (98-107) 02/25/23 10:39 Carbon Dioxide 25 mmol/L (22-29) 02/25/23 10:39 Anion Gap 10.9 (5-19) 02/25/23 10:39 BUN 26 mg/dL (8-23) H 02/25/23 10:39 Creatinine 1.4 mg/dL (0.5-0.9) H 02/25/23 10:39 GFR Calculation Not Reportable 02/25/23 10:39 Glucose 111 mg/dL (65-115) 02/25/23 10:39 Calculated Osmolality 287 mOsm/kg (285-295) 02/25/23 10:39 Calcium 10.5 mg/dL (8.5-10.5) 02/25/23 10:39 Total Bilirubin 0.4 mg/dL (0.15-1.2) 02/25/23 10:39 AST 18 U/L (0-32) 02/25/23 10:39 ALT 13 U/L (0-33) 02/25/23 10:39 Alkaline Phosphatase 51 U/L (35-105) 02/25/23 10:39 Troponin T Baseline 19 ng/L (0-10) H 02/25/23 10:39 Troponin T 120 Minute 17.68 ng/L (0-10) H 02/25/23 12:49 Delta Troponin T -1.32 ABS# (0-10) L 02/25/23 12:49 Total Protein 6.9 g/dL (6.6-8.7) 02/25/23 10:39 Albumin 4.2 g/dL (3.5-5.2) 02/25/23 10:39 Globulin 2.7 g/dL (1.3-4.6) 02/25/23 10:39 Urine Color Yellow (Yellow) 02/25/23 09:00 Urine Appearance Clear (CLEAR) 02/25/23 09:00 Urine pH 7 (5-7) 02/25/23 09:00 Ur Specific [place] 1.010 (1.005-1.030) 02/25/23 09:00 Urine Protein Neg (Negative) 02/25/23 09:00 Urine Glucose (UA) Norm (Normal) 02/25/23 09:00 Urine Ketones 1+ (Negative) H 02/25/23 09:00 Urine Blood Neg (Negative) 02/25/23 09:00 Urine Nitrate Negative (Negative) 02/25/23 09:00 Urine Bilirubin 1+ (Negative) H 02/25/23 09:00 Urine Urobilinogen Norm mg/dL (Negative) 02/25/23 09:00 Ur Leukocyte Esterase Negative (Negative) 02/25/23 09:00 All radiology interpretation(s) finalized by discharge Discharge Plan Discharge Condition: Stable Prescriptions: No Action (DME) DME: Walker Unit See Rx Instructions .ROUTE .MEDSUPPLY Qty: 1 0RF Rx Instructions: Code E0143 and E0156 walker 4 wheels and seat zonisamide 100 mg capsule 100 mg PO BID Qty: 60 2RF febuxostat [Uloric] 40 mg tablet 40 mg PO DAILY Qty: 30 2RF fenofibrate nanocrystallized [Tricor] 145 mg tablet 145 mg PO DAILY Qty: 30 2RF furosemide 40 mg tablet 40 mg PO DAILY Qty: 30 2RF isosorbide mononitrate 30 mg tablet extended release 24 hr 30 mg PO BID Qty: 60 2RF metoprolol succinate 50 mg tablet extended release 24 hr 50 mg PO DAILY Qty: 30 2RF potassium chloride 10 mEq capsule, extended release 10 meq PO BID Qty: 60 2RF amlodipine 10 mg tablet 10 mg PO DAILY Qty: 90 3RF Nitrostat 0.4 mg Tablet, Sublingual 0.4 mg SUBLINGUAL Q5M PRN (Reason: Chest Pain) Rx Instructions: do not exceed 3 doses per episode Ozempic 0.25 mg or 0.5 mg(2 mg/1.5 mL) pen injector 0.25 mg SUBCUT Q7D Rx Instructions: on monday Referrals: Shelly Dorsey FNP-C [Primary Care Provider] - Coding Level of Care Code ED Social Media Editor for [facility] NIH stroke score NIHSS Level Of Consciousness - 1a: 0 Level Of Consciousness Questions - 1b: Both Correct Level Of Consciousness Commands - 1c: Both Correct Best Gaze - 2: Normal Visual [place] - 3: No Visual Loss Facial Palsy - 4: Normal Motor Arm Right - 5: No Drift Motor Arm Left - 5: No Drift Motor Leg Right - 6: Drift Motor Leg Left - 6: No Drift Limb Ataxia - 7: Absent Sensory - 8: Mild To Moderate Loss Best Language - 9: No Aphasia Dysarthia - 10: Normal Extinction And Inattention - 11: 0 Score Total Score: 2
[2023-02-25] MEDS: amlodipine 10 mg Tablet PO (10:29)
[2023-02-25] MEDS: isosorbide mononitrate ER 30 mg Tablet PO (10:29)
--- NOTE | 2023-02-25 10:45 | ECG_ITS ---
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 Measurements Intervals [place] Rate: 65 P: 67 MS: 196 QRS: -33 QRSD: 90 T: 29 QT: 419 QTc: 439 Interpretive Statements SINUS RHYTHM LEFT AXIS DEVIATION [QRS AXIS < -30] LOW QRS VOLTAGE IN PRECORDIAL LEADS [QRS DEFLECTION < 1.0 mV IN CHEST LEADS] POSSIBLE ANTERIOR MYOCARDIAL INFARCTION , PROBABLY OLD [30 ms Q WAVE IN V3/V4, OR R < 0.2 mV IN V4] Compared to ECG 02/25/2023 09:03:48 Left-axis deviation now present Myocardial infarct finding still present Electronically Signed On 02-27-2023 10:55:03 DIRECTOR OF PUBLICATIONS by Nikunj Milan M.D. [id number]
[2023-02-25 10:47] LABS: Basophils # 0.1 10^3/uL (0.0-0.1); Basophils % 0.8 %; Eosinophils % 0.3 %; Hematocrit 45.2 % (36-47); Lymphocytes # 1.2 10^3/uL (0.8-4.8); Lymphocytes % 16.8 %; Mean Corpuscular HGB Conc 32.3 g/dL (30-55); Mean Corpuscular Hemoglobin 28.2 pg (27-33); Mean Corpuscular Volume 87.4 fl (85-98); Mean Platelet Volume 9.7 fL (7.4-10.4); Monocytes # 0.4 10^3/uL (0.2-0.9); Monocytes % 4.9 %; Neutrophils # 5.67 10^3/uL (1.8-7.7); Neutrophils % 77.1 %; Nucleated Red Blood Cells % 0 %; Platelet Count 285 10^3/cmm (157-399); Red Blood Count 5.17 10^6/uL (3.85-5.65); Red Cell Distribution Width 13.3 % (12.1-15.1); White Blood Count 7.36 10^3/uL (3.29-11.43)
[2023-02-25 11:04] LABS: Alanine Aminotransferase 13 U/L (0-33); Albumin Level 4.2 g/dL (3.5-5.2); Alkaline Phosphatase 51 U/L (35-105); Anion Gap 10.9 (5-19); Aspartate Amino Transferase 18 U/L (0-32); Blood Urea Nitrogen 26 mg/dL (8-23); Calcium 10.5 mg/dL (8.5-10.5); Carbon Dioxide 25 mmol/L (22-29); Chloride 104 mmol/L (98-107); Globulin 2.7 g/dL (1.3-4.6); Glucose 111 mg/dL (65-115); Osmolality Calculated 287 mOsm/kg (285-295); Potassium 3.9 mmol/L (3.5-5.1); Sodium 136 mmol/L (136-145); Total Bilirubin 0.4 mg/dL (0.15-1.2); Total Protein 6.9 g/dL (6.6-8.7)
[2023-02-25 11:05] LABS: Troponin(5th) Baseline 19 ng/L (0-10)
[2023-02-25 13:29] LABS: Troponin 5 2HR 17.68 ng/L (0-10)
[2023-02-25 13:36] LABS: Troponin 5 2HR Delta -1.32 ABS# (0-10)
--- NOTE | 2023-02-25 14:11 | P.HP_ITS ---
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 Subsequently she went to sleep and woke up in the middle of the night around midnight and ended up falling due to the right-sided weakness. She required help to walk to her bed with assistance as per EMS. Patient did not take any of her medications this morning. She denies chest pain, vomiting, diarrhea, dysarthria, vision changes. Patient used to be on a baby aspirin but does not take it anymore. On arrival to ER blood pressure 136/81, respirate 16, pulse 67, temperature 97.5, saturating 95% on room air. EKG and troponins no acute changes. CT head shows no acute abnormality. Old focal infarct and lacunar infarct seen. Patient outside the window for any intervention or tPA since symptoms started over 12 hours before arrival. As per ER note to patient she does not have significant stroke score to be candidate for embolectomy and has an NIH of 2. Patient recommended for admission at this time for further workup of stroke. Patient seen in room. Family at bedside. Denies any other symptoms other than right sided weakness. Medications/Allergies Home Medications Medication Instructions Recorded Confirmed Last Taken Type DME: Walker #1 ea 11/18/21 02/25/23 Unknown Rx febuxostat 40 mg tablet (Uloric) 40 mg PO DAILY #30 tabs 12/27/22 02/25/23 Unknown Rx fenofibrate nanocrystallized 145 145 mg PO DAILY #30 tabs 12/27/22 02/25/23 Unknown Rx mg tablet (Tricor) furosemide 40 mg tablet 40 mg PO DAILY #30 tabs 12/27/22 02/25/23 Unknown Rx isosorbide mononitrate 30 mg 30 mg PO BID #60 tabs 12/27/22 02/25/23 Unknown Rx tablet,extended release 24 hr metoprolol succinate 50 mg 50 mg PO DAILY #30 tabs 12/27/22 02/25/23 Unknown Rx tablet,extended release 24 hr potassium chloride 10 mEq 10 meq PO BID #60 caps 12/27/22 02/25/23 Unknown Rx capsule,extended release zonisamide 100 mg capsule 100 mg PO BID #60 caps 12/27/22 02/25/23 Unknown Rx amlodipine 10 mg tablet 10 mg PO DAILY #90 tabs 02/16/23 02/25/23 Unknown Rx nitroglycerin 0.4 mg sublingual 0.4 mg sublingual Q5M PRN Chest 02/25/23 02/25/23 Unknown History tablet (Nitrostat) Pain semaglutide 0.25 mg or 0.5 mg (2 0.25 mg SUBCUT Q7D 02/25/23 02/25/23 Unknown History mg/1.5 mL) subcutaneous pen injector Allergies Allergy/AdvReac Type Severity Reaction Status Date / Time No Known Allergies Allergy Verified 02/25/23 08:43 PFSH Acute 2 PFSH: Medical History 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 Inflammatory bowel disease Chronic diarrhea CHF (congestive heart failure) Chest pressure Sleep apnea History of CVA (cerebrovascular accident) Dyslipidemia Radiculopathy, lumbosacral region BMI 37.0-37.9, adult Gout Hypertension Anxiety Obesity Vitamin D insufficiency Surgical History Hx of colonoscopy 07/29/21 History of colonoscopy 2013 History of tubal ligation 1974 Family History Mother Hyperlipidemia Heart disease Social History Smoking and tobacco/nicotine status: never used tobacco/nicotine Second hand smoke exposure: No Alcohol intake: never Substance/Drug Use: never Caregiver/support person: No Lives independently: Yes Household members: spouse Housing: House Marital status: Number of children: 5 service: No Current occupational status: unemployed and retired Do you think of yourself as: Straight/Heterosexual Current gender identity: Female Vitals/I&O/Wt Last Vital Signs Temp 97.5 F L 02/25/23 08:32 Pulse 67 02/25/23 13:33 Resp 16 02/25/23 13:33 BP 136/81 02/25/23 13:33 Pulse Ox 95 02/25/23 13:33 O2 Del Method Room Air 02/25/23 08:32 Weight last 48 hrs Weight 90.718 kg Physical Exam 2 Narrative: General: Alert oriented x3, patient seen sitting up in bed with family at bedside HEENT: Normocephalic, atraumatic, EOMI, breathing room air Cardio: Regular rate rhythm, normal S1-S2, Respiratory: Good bilateral air entry, no wheezes no rhonchi appreciated GI: Abdomen soft, nontender, nondistended, bowel sounds + Behavior: Appropriate and cooperative Extremities: WNL Neuro: CN 2-12 intact, heel to ko ok, finger to nose ok., right sided weakness present, strength RUE and RLE 4/5, LUE, LLE 5/5, gait not tested Data 02/25/23 10:39 02/25/23 10:39 A&P Assessment and plan (1) Hypertension: Qualifiers: Hypertension type: primary hypertension Qualified Code(s): I10 - Essential (primary) hypertension (2) CHF (congestive heart failure): (3) Diabetes mellitus: Qualifiers: Diabetes mellitus complication status: with hyperglycemia Diabetes mellitus retirement insulin use: without retirement use Diabetes mellitus type: t ype 2 Qualified Code(s): E11.65 - Type 2 diabetes mellitus with hyperglycemia (4) History of CVA (cerebrovascular accident): Plan #Right-sided weakness most likely secondary to stroke #History of lacunar infarct, CVA x 3 in the past #Obesity, obstructive sleep apnea #Diabetes #Gout #Chronic diastolic CHF #History of rheumatic fever, pericardial effusion status post pericardial window more than 1 occasion, pleural effusion x 3 #Hypertension #Dyslipidemia ?Right-sided weakness most likely secondary to stroke ? CT head negative for new stroke at this time ? Check MRI brain without contrast ? Check lipid panel, TSH, hemoglobin A1c ? Sliding scale insulin moderate dose intensity ? Allow permissive hypertension at this time ? Hold amlodipine, Imdur ? Keep systolic blood pressure less than 180 ? Continue zonisamide, metoprolol succinate ? Check echo ? Placed on cardiac telemetry ? Aspirin, Plavix x 3 weeks to be continued, atorvastatin 80 ? May require cardiac event monitor at discharge to rule out underlying A-fib. I reviewed her cardiology pulmonology records and do not see a history of atrial fibrillation listed anywhere. DVT prophylaxis: Heparin SQ twice daily DNR/ DNI: Pt stated she wants to go naturally and doesnt want any interventions . Attestations 2 Medical Necessity Statement*: Observation for stroke workup. Diagnoses Primary hypertension I10 Hypertension type: primary hypertension CHF (congestive heart failure) I50.9 Type 2 diabetes mellitus with hyperglycemia, without long-term current use of insulin E11.65 Diabetes mellitus complication status: with hyperglycemia Diabetes mellitus retirement insulin use: without oysterman use Diabetes mellitus type: type 2 History of CVA (cerebrovascular accident) Z86.73
--- NOTE | 2023-02-25 14:47 | ECG_ITS ---
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 Measurements Intervals [place] Rate: 66 P: 76 MN: 206 QRS: -27 QRSD: 88 T: 44 QT: 401 QTc: 423 Interpretive Statements SINUS RHYTHM BORDERLINE LEFT AXIS DEVIATION [QRS AXIS < -20] LOW QRS VOLTAGE IN PRECORDIAL LEADS [QRS DEFLECTION < 1.0 mV IN CHEST LEADS] PATTERN CONSISTENT WITH PULMONARY DISEASE Compared to ECG 02/25/2023 10:45:03 Myocardial infarct finding no longer present Electronically Signed On 02-27-2023 10:54:41 DRAPERY HEMMER AUTOMATIC by Nikunj Milan M.D. [id number]
[2023-02-25] MEDS: aspirin 81 mg EC Tablet PO (14:57)
[2023-02-25 14:58] LABS: Estmated Average Glucose 123; Hemoglobin A1C 5.9 % (4.0-6.0)
[2023-02-25] MEDS: heparin 5,000 unit/mL INJ 1 mL 5000 UNIT SUBCUT (14:58)
[2023-02-25 15:04] LABS: Chol HDL Ratio 3.94 mg/dL (0.0-4.40); Cholesterol 189 mg/dL (0-200); HDL Cholesterol 48 mg/dL (60-100); LDL Cholesterol Calculated 116 mg/dL (50-129); LDL HDL Ratio 2.42 RATIO (0.00-3.22); Thyroid Stimulating Hormone 1.84 uIU/mL (0.27-4.20); Triglycerides 124 mg/dL (0-150)
[2023-02-25 17:16] LABS: Troponin 5 6HR 18.82 ng/L (0-10); Troponin 5 6HR Delta -0.18 ng/L (0-12)
--- NOTE | 2023-02-25 18:50 | P.DS_ITS ---
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: without fci use Diabetes mellitus type: type 2 Diabetes mellitus complication status: with hyperglycemia Qualified Code(s): E11.65 - Type 2 diabetes mellitus with hyperglycemia (4) History of CVA (cerebrovascular accident): Status: Chronic Reason for Visit Reason for Visit: WEAKNESS Brief History: LEFT AMA Hospital Course Hospital Course LEFT AMA Discharge Data Studies Completed and Pending Completed Studies During Hospitalization Category Date Time Status CT head wo con* [id number] Stat Cat Scan 02/25/23 09:41 Completed XR chest 1V portable [id number] Stat Exams 02/25/23 08:31 Completed Pending at discharge Category Date Time Status Complete Blood Count w/Auto AM LABS Lab 02/26/23 04:00 Ordered Comprehensive Metabolic Panel AM LABS Lab 02/26/23 04:00 Ordered Magnesium AM LABS Lab 02/26/23 04:00 Ordered CV. echo complete* [id number] Routine Ultrasound 02/26/23 06:00 Ordered Radiology Impressions Chest X-Ray 02/25/23 08:31 IMPRESSION: Opacity at the left lung base which might be artifactual. Head CT 02/25/23 09:41 IMPRESSION: No acute intracranial abnormality. Laboratory Results WBC 7.36 10^3/uL (3.29-11.43) 02/25/23 10:39 RBC 5.17 10^6/uL (3.85-5.65) 02/25/23 10:39 Hgb 14.60 g/dL (11.27-16.99) 02/25/23 10:39 Hct 45.2 % (36-47) 02/25/23 10:39 MCV 87.4 fl (85-98) 02/25/23 10:39 MCH 28.2 pg (27-33) 02/25/23 10:39 MCHC 32.3 g/dL (30-55) 02/25/23 10:39 RDW 13.3 % (12.1-15.1) 02/25/23 10:39 Plt Count 285 10^3/cmm (157-399) 02/25/23 10:39 MPV 9.7 fL (7.4-10.4) 02/25/23 10:39 Neut % (Auto) 77.1 % 02/25/23 10:39 Lymph % (Auto) 16.8 % 02/25/23 10:39 [place] % (Auto) 4.9 % 02/25/23 10:39 Eos % (Auto) 0.3 % 02/25/23 10:39 Baso % (Auto) 0.8 % 02/25/23 10:39 Neut # (Auto) 5.67 10^3/uL (1.8-7.7) 02/25/23 10:39 Lymph # (Auto) 1.2 10^3/uL (0.8-4.8) 02/25/23 10:39 [place] # (Auto) 0.4 10^3/uL (0.2-0.9) 02/25/23 10:39 Eos # (Auto) 0.0 10^3/uL (0.0-0.8) 02/25/23 10:39 Baso # (Auto) 0.1 10^3/uL (0.0-0.1) 02/25/23 10:39 Nucleated RBC % (auto) 0 % 02/25/23 10:39 Nucleated RBCs # 0.0 /100WBC 02/25/23 10:39 Sodium 136 mmol/L (136-145) 02/25/23 10:39 Potassium 3.9 mmol/L (3.5-5.1) 02/25/23 10:39 Chloride 104 mmol/L (98-107) 02/25/23 10:39 Carbon Dioxide 25 mmol/L (22-29) 02/25/23 10:39 Anion Gap 10.9 (5-19) 02/25/23 10:39 BUN 26 mg/dL (8-23) H 02/25/23 10:39 Creatinine 1.4 mg/dL (0.5-0.9) H 02/25/23 10:39 GFR Calculation Not Reportable 02/25/23 10:39 Glucose 111 mg/dL (65-115) 02/25/23 10:39 Estimat Average Glucose 123 02/25/23 10:39 Hemoglobin A1c 5.9 % (4.0-6.0) 02/25/23 10:39 Calculated Osmolality 287 mOsm/kg (285-295) 02/25/23 10:39 Calcium 10.5 mg/dL (8.5-10.5) 02/25/23 10:39 Total Bilirubin 0.4 mg/dL (0.15-1.2) 02/25/23 10:39 AST 18 U/L (0-32) 02/25/23 10:39 ALT 13 U/L (0-33) 02/25/23 10:39 Alkaline Phosphatase 51 U/L (35-105) 02/25/23 10:39 Troponin T Baseline 19 ng/L (0-10) H 02/25/23 10:39 Troponin T 120 Minute 17.68 ng/L (0-10) H 02/25/23 12:49 Delta Troponin T -1.32 ABS# (0-10) L 02/25/23 12:49 Troponin T Hi Sens 6Hr 18.82 ng/L (0-10) H 02/25/23 16:47 Troponin T Hi Sens 6Hr Delta -0.18 ng/L (0-12) L 02/25/23 16:47 Total Protein 6.9 g/dL (6.6-8.7) 02/25/23 10:39 Albumin 4.2 g/dL (3.5-5.2) 02/25/23 10:39 Globulin 2.7 g/dL (1.3-4.6) 02/25/23 10:39 Triglycerides 124 mg/dL (0-150) 02/25/23 10:39 Cholesterol 189 mg/dL (0-200) 02/25/23 10:39 LDL Cholesterol, Calc 116 mg/dL (50-129) 02/25/23 10:39 HDL Cholesterol 48 mg/dL (60-100) L 02/25/23 10:39 LDL/HDL Ratio 2.42 RATIO (0.00-3.22) 02/25/23 10:39 Cholesterol/HDL Ratio 3.94 mg/dL (0.0-4.40) 02/25/23 10:39 TSH 1.84 uIU/mL (0.27-4.20) 02/25/23 10:39 Urine Color Yellow (Yellow) 02/25/23 09:00 Urine Appearance Clear (CLEAR) 02/25/23 09:00 Urine pH 7 (5-7) 02/25/23 09:00 Ur Specific [place] 1.010 (1.005-1.030) 02/25/23 09:00 Urine Protein Neg (Negative) 02/25/23 09:00 Urine Glucose (UA) Norm (Normal) 02/25/23 09:00 Urine Ketones 1+ (Negative) H 02/25/23 09:00 Urine Blood Neg (Negative) 02/25/23 09:00 Urine Nitrate Negative (Negative) 02/25/23 09:00 Urine Bilirubin 1+ (Negative) H 02/25/23 09:00 Urine Urobilinogen Norm mg/dL (Negative) 02/25/23 09:00 Ur Leukocyte Esterase Negative (Negative) 02/25/23 09:00 Vitals Last Vital Signs Temp 97.5 F L 02/25/23 17:28 Pulse 66 02/25/23 17:28 Resp 16 02/25/23 17:28 BP 164/84 02/25/23 17:28 Pulse Ox 93 02/25/23 17:28 O2 Del Method Room Air 02/25/23 08:32 Discharge Plan Discharge Patient Disposition: Left Against Medical Advice Clinical Impression: History of CVA (cerebrovascular accident) Condition: Stable Prescriptions: New aspirin 81 mg capsule 81 mg PO DAILY Qty: 30 0RF clopidogrel [Plavix] 75 mg tablet 75 mg PO DAILY Qty: 21 0RF No Action (DME) DME: Walker Unit See Rx Instructions .ROUTE .MEDSUPPLY Qty: 1 0RF Rx Instructions: Code E0143 and E0156 walker 4 wheels and seat zonisamide 100 mg capsule 100 mg PO BID Qty: 60 2RF febuxostat [Uloric] 40 mg tablet 40 mg PO DAILY Qty: 30 2RF fenofibrate nanocrystallized [Tricor] 145 mg tablet 145 mg PO DAILY Qty: 30 2RF furosemide 40 mg tablet 40 mg PO DAILY Qty: 30 2RF isosorbide mononitrate 30 mg tablet extended release 24 hr 30 mg PO BID Qty: 60 2RF metoprolol succinate 50 mg tablet extended release 24 hr 50 mg PO DAILY Qty: 30 2RF potassium chloride 10 mEq capsule, extended release 10 meq PO BID Qty: 60 2RF amlodipine 10 mg tablet 10 mg PO DAILY Qty: 90 3RF Nitrostat 0.4 mg Tablet, Sublingual 0.4 mg SUBLINGUAL Q5M PRN (Reason: Chest Pain) Rx Instructions: do not exceed 3 doses per episode Ozempic 0.25 mg or 0.5 mg(2 mg/1.5 mL) pen injector 0.25 mg SUBCUT Q7D Rx Instructions: on monday Other Ambulatory Orders: CV carotid duplex BI* [id number] (Routine) Timeframe: 1 Day Facility: [facility] - Location: Radiology [place] [facility] Ordered By: Tenisha Rodriguez CV. echo complete* [id number] (Routine) Timeframe: 1 Day Facility: [facility] - Location: Radiology Ordered By: Tenisha Rodriguez MR head wo con* [id number] (Routine) Timeframe: 1 Day Facility: [facility] - Location: Radiology [place] Ordered By: Tenisha Rodriguez Referrals: Michelle Novoa MD [Physician] - 1-3 days (Stroke) Shelly Dorsey FNP-C [Primary Care Provider] - 1-3 days Discharge Attestations Time Spent in Discharge Care*: less than 30 min Quality Metrics Clinical Quality Measures [ No reported AMI, CVA or VTE this stay] Coding Level of Care Code Acute Code for Chg Fwd Diagnoses Primary hypertension I10 Hypertension type: primary hypertension CHF (congestive heart failure) I50.9 Type 2 diabetes mellitus with hyperglycemia, without long-term current use of insulin E11.65 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
== END 2023-02-25 17:30 | disposition left against medical advice (07) ==
PROVIDERS: Internal Medicine; Emergency Provider Family Medicine; PCP Nurse Practitioner
DX: R53.1 Weakness (principal); R20.0 Anesthesia of skin; I11.0 Hypertensive heart disease with heart failure; I50.9 Heart failure, unspecified; Z86.73 Personal history of transient ischemic attack (TIA), and cerebral infarction without residual deficits; E78.5 Hyperlipidemia, unspecified
CPT/HCPCS: 36415; 70450; 71045; 80053; 80061; 81003; 83036; 84443; 84484; 85025; 93005; 96372; 99285; J1644

== ENCOUNTER → 2023-03-20 12:58 | Outpatient (BNVA) | payer MEDICARE, MEDICAID, SELFPAY | PROVIDERS: PCP Nurse Practitioner; Visit Provider Internal Medicine | DX: R60.9 Edema, unspecified (principal); R07.89 Other chest pain; R06.00 Dyspnea, unspecified; G47.30 Sleep apnea, unspecified; E78.5 Hyperlipidemia, unspecified; Z68.37 Body mass index [BMI] 37.0-37.9, adult; E11.65 Type 2 diabetes mellitus with hyperglycemia; I11.0 Hypertensive heart disease with heart failure; I50.9 Heart failure, unspecified; Z79.85 Long-term (current) use of injectable non-insulin antidiabetic drugs | CPT/HCPCS: 99214 ==

== ENCOUNTER 2023-05-16 10:48 | Outpatient (CLI) | payer MEDICARE, MEDICAID, SELFPAY ==
--- NOTE | 2023-05-16 11:00 | MM_ITS ---
WS: [id number] VIEWS: MLO and CC views both breasts. 3D digital tomosynthesis is also included in this exam. Comparison made with prior exam of 01/18/2006, 06/24/2011, 08/21/2015, 08/08/2017,. Findings: There was no sign of mass, architectural distortion or suspicious calcification in either breast. The breasts are heterogeneously dense which may obscure small masses Impression: MM/[place] [id number] BI-RADS: 2-Benign finding. FOLLOW-UP: 1 Year Follow-up This mammogram was also analyzed by the Computer Aided Detection System R2 Imag e Hospitality Manager.
== END 2023-05-16 10:49 | disposition home or self-care (01) ==
LOC: MOBLMAM 10:54
PROVIDERS: PCP Nurse Practitioner; Visit Provider Nurse Practitioner
DX: Z12.31 Encounter for screening mammogram for malignant neoplasm of breast (principal)
CPT/HCPCS: 77063; 77067

== ENCOUNTER → 2023-06-01 10:52 | Outpatient (BNVA) | payer MEDICARE, MEDICAID, SELFPAY | PROVIDERS: PCP Nurse Practitioner; Visit Provider Nurse Practitioner | DX: I10 Essential (primary) hypertension (principal) | CPT/HCPCS: 80053 ==

== ENCOUNTER → 2023-08-17 08:38 | Outpatient (BNVA) | payer MEDICARE, MEDICAID, SELFPAY | PROVIDERS: PCP Nurse Practitioner; Visit Provider Nurse Practitioner | DX: E11.65 Type 2 diabetes mellitus with hyperglycemia (principal); M10.9 Gout, unspecified | CPT/HCPCS: 80053; 80061; 82043; 83036 ==

== ENCOUNTER 2023-09-12 17:22 | Emergency (ER) | payer MEDICARE, MEDICAID, SELFPAY ==
[2023-09-12] VITALS (9 sets, daily range): BP systolic 136–162; BP diastolic 68–93; PULSE 60–69; RESP 15–18; TEMP 36.4; O2SAT 94–95
--- NOTE | 2023-09-12 18:37 | XRR_ITS ---
PROCEDURE INFORMATION: Exam: XR Chest Exam date and time: 09/12/2023 6:41 PM Age: 78 years old Clinical indication: Other: Dizzy TECHNIQUE: Imaging protocol: Radiologic exam of the chest. Views: 1 view. COMPARISON: CR XR chest 1V portable [id number] 02/25/2023 8:58 AM FINDINGS: Lungs: The lungs are hyperexpanded. Central vascular prominence without overt edema. Mild left basilar atelectasis. Pleural spaces: No pleural effusion or pneumothorax. Heart/Mediastinum: Cardiomegaly. Bones/joints: No acute osseous findings. XR/XR chest 1V portable [id number] IMPRESSION: Central vascular prominence without overt edema. Mild left basilar atelectasis. Cardiomegaly.
--- NOTE | 2023-09-12 18:49 | ED_ITS ---
HPI - Dizziness 2 General: Chief Complaint: Dizziness Stated Complaint: dizzy Time Seen by Provider: 09/12/23 18:25 Source: patient Mode of arrival: ambulatory Limitations: no limitations History of Present Illness: HPI Narrative: Patient is a 78-year-old female with past medical history of congestive heart failure and CVA who presents to the emergency department complaining of dizziness onset this morning. Patient states she woke up at 0600 with the dizziness, noting that it feels like a lightheadedness. She has no history of previous. She states it has been constant throughout the day and she was told to come into the emergency department by home health nurse. She is also reporting some associated nausea, however is not having any chest pain, shortness of breath, blurred vision, focal neurological deficits, abdominal pain, or other symptoms at this time. She does note that she was here in the hospital for a heart attack last year. Also notes some increased swelling in her lower extremities, takes furosemide. She is not on any blood thinners. No recent medication changes per the patient. She states she is still feeling dizzy at this time. She does note that it is worse with ambulation and standing up. She denies any falls or head injury. MD elicited complaint: dizziness and lightheadedness Onset (ago): hour(s) Timing: sudden onset Severity: moderate Description: lightheadedness History of similar symptoms: No Exacerbating factors: movement/ambulation and standing Relieving factors: remaining still Associated symptoms: Reports nausea; Denies chest pain, chills, headache(s), palpitations or vomiting Associated neuro symptoms: Deny numbness in extremities Review of Systems 2 General: Reports: 10 or more systems reviewed and unremarkable except in HPI and below Const: Denies: fever(s), chills or fatigue Eyes: Denies: change in vision ENMT: Denies: throat pain, ear or mastoid pain or nasal discharge Card: Reports: swelling of feet/ankles and lightheadedness; Denies: chest pain or palpitations Resp: Denies: dyspnea, productive cough or wheezing GI: Reports: nausea; Denies: abdominal pain, vomiting, diarrhea or constipation : Denies: flank pain, difficulty voiding, dysuria or urinary frequency Musc: Denies: neck pain, back pain or joint pain Skin/Breast: Denies: rash Neuro: Reports: dizziness; Denies: headache(s), numbness in extremities or weakness in extremities PFSH ED 2 PFSH: Medical History 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 Inflammatory bowel disease Chronic diarrhea CHF (congestive heart failure) Chest pressure Sleep apnea History of CVA (cerebrovascular accident) Dyslipidemia Radiculopathy, lumbosacral region BMI 37.0-37.9, adult Gout Hypertension Anxiety Obesity Vitamin D insufficiency Surgical History Hx of colonoscopy 07/29/21 History of colonoscopy 2014 History of tubal ligation 1974 Family History Mother Hyperlipidemia Heart disease Social History Smoking and tobacco/nicotine status: never used tobacco/nicotine Second hand smoke exposure: No Alcohol intake: never Substance/Drug Use: never Caregiver/support person: No Lives independently: Yes Household members: spouse Housing: House Marital status: Number of children: 5 service: No Current occupational status: unemployed and retired Do you think of yourself as: Straight/Heterosexual Current gender identity: Female Physical Exam 2 Const: COMMON NORMALS: no acute distress, patient oriented x3 and no limitations GENERAL APPEARANCE: cooperative, comfortable and well developed ORIENTATION/CONSCIOUSNESS: Yes awake, Yes oriented to person, Yes oriented to place and Yes oriented to time HENMT: COMMON NORMALS: normocephalic, atraumatic and hearing grossly normal bilaterally HEAD & SCALP: normocephalic and atraumatic Eye: COMMON NORMALS: Equal, round and reactive pupils present, EOMs intact bilaterally and conjunctivae normal CONJUNCTIVA: Yes conjunctivae normal P UPIL: Yes Equal, round and reactive pupils present Neck/C-Spine: COMMON NORMALS: full ROM, supple and no JVD Resp: COMMON NORMALS: normal respiratory effort, No retractions, No use of accessory muscles and clear to auscultation bilaterally AUSCULTATION: clear to auscultation bilaterally Cardio: COMMON NORMALS: no JVD, regular rate, regular rhythm, No clicks present (Cardio), No murmurs present (Cardio) and No rub (Cardio) RATE: r egular rate RHYTHM: regular rhythm GI: COMMON NORMALS: Normal to inspection, nondistended, normoactive bowel sounds present, Soft to palpation and non-tender AUSCULTATION: Yes normoactive bowel sounds PALPATION: Yes Soft to palpation RECTAL EXAM: d eferred Extremity: COMMON NORMALS: normal to inspection, full ROM and capillary refill normal Neuro: COMMON NORMALS: patient oriented x3, CN's II-XII intact bilaterally, moves all extremities, no focal motor deficits and no sensory deficits noted SENSORIUM/ORIENTATION: Yes oriented to person, Yes oriented to place and Yes oriented to time Psych: COMMON NORMALS: mental status grossly normal and Normal thought process present THOUGHT PROCESS: Normal thought process present Skin: COMMON NORMALS: no rashes or lesions noted GENERAL SKIN EXAM: no rashes or lesions noted Course 2 Vital Signs: Vital signs: Vital Signs Temperature 97.5 F L 09/12/23 17:32 Pulse Rate 67 09/12/23 21:22 Respiratory Rate 15 09/12/23 19:00 Blood Pressure 149/70 09/12/23 21:00 Pulse Oximetry 95 09/12/23 21:22 Oxygen Delivery Me thod Room Air 09/12/23 21:00 MDM - Dizziness Medical Decision Making Patient presented with acute onset of dizziness this morning after waking up. She has never had this in the past, does note a history of CVA last year as well as CHF. Noted some increased peripheral swelling. There was no real appreciable swelling on physical examination, and her neurological examination was normal. Cardiopulmonary auscultation also unremarkable. Her lab work was all negative, baseline troponin unremarkable as well as her repeat troponin. EKG reviewed with Dr. Vazquez, showed sinus bradycardia with rate 59, however no signs of acute ST elevated myocardial infarction or other concerning findings. Her chest x-ray overall is unremarkable, and her head CT was normal. Orthostatic vital signs were nondiagnostic. Urinalysis did not reveal any signs of infection. BNP was normal. Because of this negative workup overall, will refer her for outpatient cardiac testing with her primary care. Will also try meclizine for any potential vestibular causes of her dizziness, and she is instructed to avoid intake of sodium. Differential at this time does include M?ni?re's disease, versus benign positional paroxysmal vertigo. Strict return precautions are given such that if she starts having worsening dizziness, chest pain, feeling like she is going to pass out, falls, or other concerning symptoms that she is to return immediately for reevaluation. Otherwise she will be directed to outpatient management. Lab Data 09/12/23 18:47 09/12/23 18:47 Radiology Impressions Chest X-Ray 09/12/23 18:37 IMPRESSION: Central vascular prominence without overt edema. Mild left basilar atelectasis. Cardiomegaly. Head CT 09/12/23 19:39 IMPRESSION: No acute intracranial findings. Laboratory Results WBC 7.76 10^3/uL (3.29-11.43) 09/12/23 18:47 RBC 5.19 10^6/uL (3.85-5.65) 09/12/23 18:47 Hgb 14.40 g/dL (11.27-16.99) 09/12/23 18:47 Hct 45.3 % (36-47) 09/12/23 18:47 MCV 87.3 fl (85-98) 09/12/23 18:47 MCH 27.7 pg (27-33) 09/12/23 18:47 MCHC 31.8 g/dL (30-55) 09/12/23 18:47 RDW 13.5 % (12.1-15.1) 09/12/23 18:47 Plt Count 306 10^3/cmm (157-399) 09/12/23 18:47 MPV 9.5 fL (7.4-10.4) 09/12/23 18:47 Neut % (Auto) 62.3 % 09/12/23 18:47 Lymph % (Auto) 28.2 % 09/12/23 18:47 [place] % (Auto) 6.7 % 09/12/23 18:47 Eos % (Auto) 1.8 % 09/12/23 18:47 Baso % (Auto) 0.9 % 09/12/23 18:47 Neut # (Auto) 4.83 10^3/uL (1.8-7.7) 09/12/23 18:47 Lymph # (Auto) 2.2 10^3/uL (0.8-4.8) 09/12/23 18:47 [place] # (Auto) 0.5 10^3/uL (0.2-0.9) 09/12/23 18:47 Eos # (Auto) 0.1 10^3/uL (0.0-0.8) 09/12/23 18:47 Baso # (Auto) 0.1 10^3/uL (0.0-0.1) 09/12/23 18:47 Nucleated RBC % (auto) 0 % 09/12/23 18:47 Nucleated RBCs # 0.0 /100WBC 09/12/23 18:47 Sodium 140 mmol/L (136-145) 09/12/23 18:47 Potassium 4.1 mmol/L (3.5-5.1) 09/12/23 18:47 Chloride 103 mmol/L (98-107) 09/12/23 18:47 Carbon Dioxide 25 mmol/L (22-29) 09/12/23 18:47 Anion Gap 16.1 (5-19) 09/12/23 18:47 BUN 17 mg/dL (8-23) 09/12/23 18:47 Creatinine 1.1 mg/dL (0.5-0.9) H 09/12/23 18:47 GFR Calculation Not Reportable 09/12/23 18:47 Glucose 96 mg/dL (65-115) 09/12/23 18:47 Calculated Osmolality 291 mOsm/kg (285-295) 09/12/23 18:47 Calcium 9.1 mg/dL (8.5-10.5) 09/12/23 18:47 Total Bilirubin 0.5 mg/dL (0.15-1.2) 09/12/23 18:47 AST 30 U/L (0-32) 09/12/23 18:47 ALT 22 U/L (0-33) 09/12/23 18:47 Alkaline Phosphatase 55 U/L (35-105) 09/12/23 18:47 Troponin T Baseline 17 ng/L (0-10) H 09/12/23 18:47 Troponin T 120 Minute 16.39 ng/L (0-10) H 09/12/23 20:41 Delta Troponin T -0.61 ABS# (0-10) L 09/12/23 20:41 NT-Pro-B Natriuret Pep 447 pg/mL (0-450) 09/12/23 18:47 Total Protein 6.9 g/dL (6.6-8.7) 09/12/23 18:47 Albumin 4.1 g/dL (3.5-5.2) 09/12/23 18:47 Globulin 2.8 g/dL (1.3-4.6) 09/12/23 18:47 Urine Color Yellow (Yellow) 09/12/23 20:44 Urine Appearance Clear (CLEAR) 09/12/23 20:44 Urine pH 7 (5-7) 09/12/23 20:44 Ur Specific [place] 1.010 (1.005-1.030) 09/12/23 20:44 Urine Protein Neg (Negative) 09/12/23 20:44 Urine Glucose (UA) Norm (Normal) 09/12/23 20:44 Urine Ketones Negative (Negative) 09/12/23 20:44 Urine Blood Neg (Negative) 09/12/23 20:44 Urine Nitrate Negative (Negative) 09/12/23 20:44 Urine Bilirubin Neg (Negative) 09/12/23 20:44 Urine Urobilinogen Norm mg/dL (Negative) 09/12/23 20:44 Ur Leukocyte Esterase Negative (Negative) 09/12/23 20:44 All radiology interpretation(s) finalized by discharge Discharge Plan Discharge Patient Disposition: Home Clinical Impression: Benign paroxysmal positional vertigo Condition: Stable Prescriptions: New meclizine 25 mg tablet 25 mg PO BID PRN (Reason: dizziness) Qty: 30 0RF No Action (DME) DME: Walker Unit See Rx Instructions .ROUTE .MEDSUPPLY Qty: 1 0RF Rx Instructions: Code E0143 and E0156 walker 4 wheels and seat potassium chloride 10 mEq capsule, extended release 10 meq PO BID Qty: 60 2RF febuxostat [Uloric] 40 mg tablet 40 mg PO DAILY Qty: 30 2RF fenofibrate nanocrystallized [Tricor] 145 mg tablet 145 mg PO DAILY Qty: 30 2RF furosemide 40 mg tablet 40 mg PO DAILY Qty: 30 2RF Rx Instructions: for swelling isosorbide mononitrate 30 mg tablet extended release 24 hr 30 mg PO BID Qty: 60 2RF metoprolol succinate 50 mg tablet extended release 24 hr 50 mg PO DAILY Qty: 30 2RF semaglutide 0.25 mg or 0.5 mg(2 mg/1.5 mL) pen injector 0.25 mg SUBCUT Q7D Qty: 1.5 2RF Rx Instructions: on monday diclofenac sodium [Voltaren Arthritis Pain] 1 % gel 2 g topical QID Qty: 100 0RF Rx Instructions: apply to single elbow, wrist or hand; for hand includes palm/fingers/back of hand aspirin 81 mg tablet,delayed release (DR/EC) 81 mg PO DAILY amlodipine 10 mg tablet 10 mg PO DAILY Qty: 90 3RF Nitrostat 0.4 mg Tablet, Sublingual 0.4 mg SUBLINGUAL Q5M PRN (Reason: Chest Pain) Rx Instructions: do not exceed 3 doses per episode Discharge Orders: Discharge ED (Routine); Ordered 09/12/23 Ordered By: Jay Cuevas Referrals: Shelly Dorsey, [facility] [Primary Care Provider] - Discharge Diet: As Directed Discharge Activity: Increase activity as tolerated Patient Instructions: Benign Paroxysmal Positional Vertigo (ED), Dizziness (ED) Activity Restrictions/Additional Instructions: Avoid excessive sodium intake. Take meclizine as prescribed. Increase your fluid intake. Continue taking medications as prescribed. Please follow-up with primary care in the next week as discussed for further evaluation. Return if you develop any worsening of dizziness, falls, or other concerning symptoms. 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
--- NOTE | 2023-09-12 18:58 | ECG_ITS ---
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 Measurements Intervals [place] Rate: 59 P: 59 VT: 226 QRS: -45 QRSD: 82 T: 32 QT: 438 QTc: 435 Interpretive Statements SINUS BRADYCARDIA WITH FIRST DEGREE AV BLOCK LOW QRS VOLTAGE IN PRECORDIAL LEADS [QRS DEFLECTION < 1.0 mV IN CHEST LEADS] LEFT ANTERIOR FASCICULAR BLOCK [QRS AXIS <= -45, QR IN I, RS IN II] POSSIBLE ANTERIOR MYOCARDIAL INFARCTION , PROBABLY OLD [30 ms Q WAVE IN V3/V4, OR R < 0.2 mV IN V4] Compared to ECG 02/25/2023 14:47:03 First degree AV block now present Left anterior fascicular block now present Myocardial infarct finding now present Sinus rhythm no longer present Electronically Signed On 09-13-2023 10:32:26 CDT by Nikunj Milan M.D. [id number]
[2023-09-12 19:07] LABS: Basophils # 0.1 10^3/uL (0.0-0.1); Basophils % 0.9 %; Eosinophils # 0.1 10^3/uL (0.0-0.8); Eosinophils % 1.8 %; Hematocrit 45.3 % (36-47); Lymphocytes # 2.2 10^3/uL (0.8-4.8); Lymphocytes % 28.2 %; Mean Corpuscular HGB Conc 31.8 g/dL (30-55); Mean Corpuscular Hemoglobin 27.7 pg (27-33); Mean Corpuscular Volume 87.3 fl (85-98); Mean Platelet Volume 9.5 fL (7.4-10.4); Monocytes # 0.5 10^3/uL (0.2-0.9); Monocytes % 6.7 %; Neutrophils # 4.83 10^3/uL (1.8-7.7); Neutrophils % 62.3 %; Nucleated Red Blood Cells % 0 %; Platelet Count 306 10^3/cmm (157-399); Red Blood Count 5.19 10^6/uL (3.85-5.65); Red Cell Distribution Width 13.5 % (12.1-15.1); White Blood Count 7.76 10^3/uL (3.29-11.43)
[2023-09-12 19:18] LABS: Troponin(5th) Baseline 17 ng/L (0-10)
[2023-09-12 19:33] LABS: Albumin Level 4.1 g/dL (3.5-5.2); Alkaline Phosphatase 55 U/L (35-105); Blood Urea Nitrogen 17 mg/dL (8-23); Calcium 9.1 mg/dL (8.5-10.5); Carbon Dioxide 25 mmol/L (22-29); Chloride 103 mmol/L (98-107); Creatinine Clr Calc Pharmacy 46.3465; Globulin 2.8 g/dL (1.3-4.6); Glucose 96 mg/dL (65-115); NT Pro B Type Natriuretic Pept 447 pg/mL (0-450); Osmolality Calculated 291 mOsm/kg (285-295); Sodium 140 mmol/L (136-145); Total Bilirubin 0.5 mg/dL (0.15-1.2); Total Protein 6.9 g/dL (6.6-8.7)
[2023-09-12 19:38] LABS: Alanine Aminotransferase 22 U/L (0-33); Anion Gap 16.1 (5-19); Aspartate Amino Transferase 30 U/L (0-32); Potassium 4.1 mmol/L (3.5-5.1)
--- NOTE | 2023-09-12 19:39 | CTR_ITS ---
PROCEDURE INFORMATION: Exam: CT Head Without Contrast Exam date and time: 09/12/2023 8:45 PM Age: 78 years old Clinical indication: Dizziness; Additional info: Dizzy/nausea TECHNIQUE: Imaging protocol: Computed tomography of the head without contrast. Radiation optimization: All CT scans at this facility use at least one of these dose optimization techniques: automated exposure control; mA and/or kV adjustment per patient size (includes targeted exams where dose is matched to clinical indication); or iterative reconstruction. COMPARISON: CT head wo con* [id number] 02/25/2023 9:53 AM RADIATION DOSE METRICS: Total DLP (mGy-cm): 1058 FINDINGS: Brain: No acute infarction or intracranial hemorrhage. Chronic infarct within right basal ganglia versus prominent perivascular space. Mild periventricular hypoattenuation likely representing microangiopathy. Cerebral ventricles: No hydrocephalus. Paranasal sinuses: Visualized sinuses are unremarkable. No fluid levels. Mastoid air cells: Visualized mastoid air cells are well aerated. Bones: Unremarkable. No acute fracture. Soft tissues: Unremarkable. CT/CT head wo con* [id number] IMPRESSION: No acute intracranial findings.
--- NOTE | 2023-09-12 20:04 | PC.NURSE ---
pt requesting to know how much longer, seems to be wanting to go home. pt notified of order for ct scan. pt states okay, better be soon.
--- NOTE | 2023-09-12 20:37 | ECG_ITS ---
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 Measurements Intervals [place] Rate: 59 P: 60 VT: 226 QRS: -35 QRSD: 82 T: 35 QT: 431 QTc: 428 Interpretive Statements SINUS BRADYCARDIA WITH FIRST DEGREE AV BLOCK LEFT AXIS DEVIATION [QRS AXIS < -30] LOW QRS VOLTAGE IN PRECORDIAL LEADS [QRS DEFLECTION < 1.0 mV IN CHEST LEADS] POSSIBLE ANTERIOR MYOCARDIAL INFARCTION , PROBABLY OLD [30 ms Q WAVE IN V3/V4, OR R < 0.2 mV IN V4] Compared to ECG 09/12/2023 18:58:20 Left-axis deviation now present Left anterior fascicular block no longer present Myocardial infarct finding still present Electronically Signed On 09-13-2023 10:34:29 CDT by Nikunj Milan M.D. [id number]
[2023-09-12 20:53] LABS: Add Urine Microscopic? NO; Charge for UA Resulting for Rev
[2023-09-12 20:55] LABS: Bilirubin Urine Neg (Negative); Blood Urine Neg (Negative); Glucose Urine UA Norm (Normal); Ketones Urine Negative (Negative); Leukocyte Esterase Urine Negative (Negative); Nitrate Urine Negative (Negative); Protein Urine Neg (Negative); Urine Appearance Clear (CLEAR); Urine Color Yellow (Yellow); Urobilinogen Urine Norm (Negative); pH Urine 7 (5-7)
[2023-09-12 21:07] LABS: Troponin 5 2HR 16.39 ng/L (0-10)
[2023-09-12 21:10] LABS: Troponin 5 2HR Delta -0.61 ABS# (0-10)
[2023-09-12] MEDS: meclizine 25 mg tablet PO (21:16)
== END 2023-09-12 21:23 | disposition home or self-care (01) ==
PROVIDERS: Emergency Provider Physician Assistant; PCP Nurse Practitioner
DX: H81.10 Benign paroxysmal vertigo, unspecified ear (principal); Z79.82 Long term (current) use of aspirin; I11.0 Hypertensive heart disease with heart failure; I50.9 Heart failure, unspecified; Z86.73 Personal history of transient ischemic attack (TIA), and cerebral infarction without residual deficits; E78.5 Hyperlipidemia, unspecified
CPT/HCPCS: 36415; 70450; 71045; 80053; 81003; 83880; 84484; 85025; 93005; 99285; J8597

== ENCOUNTER 2023-10-19 08:13 | Outpatient (CLI) | payer MEDICARE, MEDICAID, SELFPAY ==
--- NOTE | 2023-10-19 09:15 | USCV_ITS ---
Brianna, Danya Age: 78 Gender: F : 1945 Exam Date: 10/19/2023 08:24 Ordering Phys: Shelly Dorsey Technologist: Exam Location: [facility] Indication: cp sob BP: 130 / 80 HR: 70 Rhythm: Sinus Technical Quality: Adequate MEASUREMENTS (Male / Female) Normal Values 2D ECHO LV Diastolic Diameter PLAX 4.7 cm 4.2 - 5.9 / 3.9 - 5.3 cm IVS Diastolic Thickness 1.1 cm 0.6 - 1.0 / 0.6 - 0.9 cm IVS Systolic Thickness 2.0 cm LVPW Diastolic Thickness 1.5 cm 0.6 - 1.0 / 0.6 - 0.9 cm LVPW Systolic Thickness 1.8 cm LVOT Diameter 2.0 cm LV Ejection Fraction 2D Teich 70.4 % LV Ejection Fraction MOD 4C 60.0 % LV Ejection Fraction MOD 2C 59.7 % LV Ejection Fraction 2C AL 59.6 % LA Diameter 4.7 cm RA Systolic Volume 4C AL 45.4 ml RA Systolic Volume 4C MOD 44.5 ml LA Sys Volume AL 49.8 cm cubed LA Sys Volume Index AL 24.1 cm cubed/m squared Aorta at Sinotubular Diameter 3.2 cm IVC Diameter 1.9 cm M-MODE LA Ao Ratio MM 1.2 AV Cusp Separation MM 2.6 cm DOPPLER AV Peak Velocity 99.0 cm/s LVOT Peak Velocity 84.0 cm/s AV Area Cont Eq vti 2.7 cm squared AV Area Cont Eq pk 2.7 cm squared MV Peak Velocity 159.0 cm/s MV Area PHT 2.6 cm squared Mitral E to A Ratio 0.7 TV Peak Velocity 131.5 cm/s TR Peak Velocity 149.0 cm/s TR Peak Gradient 8.9 mmHg TV Peak E Velocity 107.0 cm/s Right Atrial Pressure 3.0 mmHg Pulmonary Artery Systolic Pressu 11.9 mmHg PV Peak Velocity 88.0 cm/s FINDINGS Left Ventricle Normal left ventricular size and systolic function, EF 60%. Moderate left ventricular hypertrophy. No regional wall motion abnormalities. Grade I/IV diastolic dysfunction (abnormal relaxation filling pattern), normal to mildly elevated filling pressures. Right Ventricle Thickened free wall of the right ventricle Right Atrium The right atrium is normal in size. Left Atrium Mildly increased left atrial size. Mitral Valve No gross abnormalities noted Aortic Valve Trace aortic valve regurgitation. Tricuspid Valve No gross abnormalities noted Pulmonic Valve Pulmonic valve not well visualized. Pericardium Normal pericardium without effusion. Aorta Normal ascending aorta dimension. IVC The inferior vena cava appears normal. CONCLUSIONS Normal left ventricular size and systolic function, EF 60%. Moderate left ventricular hypertrophy. No regional wall motion abnormalities. Grade I/IV diastolic dysfunction (abnormal relaxation filling pattern), normal to mildly elevated filling pressures. Mildly increased left atrial size. Trace aortic valve regurgitation. No intracardiac masses There is no pericardial effusion. No similar previous studies are available for comparison Dr Seble Hassan MD FACC (Electronically Signed) Final Date: 20 October 2023 16:49 S
== END 2023-10-19 08:14 | disposition home or self-care (01) ==
LOC: RAD 08:13
PROVIDERS: PCP Nurse Practitioner; Visit Provider Nurse Practitioner
DX: I11.0 Hypertensive heart disease with heart failure (principal)
CPT/HCPCS: 93306

== ENCOUNTER → 2023-11-02 09:28 | Outpatient (BNVA) | payer MEDICARE, MEDICAID, SELFPAY | PROVIDERS: PCP Nurse Practitioner; Visit Provider Nurse Practitioner | DX: E78.5 Hyperlipidemia, unspecified (principal) | CPT/HCPCS: 80053; 80061; 84443 ==

== ENCOUNTER 2023-11-22 06:00 | Outpatient (RCR) | payer MEDICARE, MEDICAID, SELFPAY | END 2023-12-21 23:59 | disposition home or self-care (01) | LOC: APT 06:00 | PROVIDERS: Visit Provider Nurse Practitioner | DX: M47.12 Other spondylosis with myelopathy, cervical region (principal); M47.22 Other spondylosis with radiculopathy, cervical region; R42 Dizziness and giddiness | CPT/HCPCS: 97110; 97161; 97530 ==

== ENCOUNTER → 2023-12-12 10:07 | Outpatient (BNVA) | payer MEDICARE, MEDICAID, SELFPAY | PROVIDERS: PCP Nurse Practitioner; Visit Provider Nurse Practitioner Family | DX: I10 Essential (primary) hypertension (principal); I49.3 Ventricular premature depolarization; R94.31 Abnormal electrocardiogram [ECG] [EKG] | CPT/HCPCS: 93005; 99213 ==

== ENCOUNTER → 2024-05-08 08:19 | Outpatient (BNVA) | payer MEDICARE, MEDICAID, SELFPAY | PROVIDERS: PCP Nurse Practitioner; Visit Provider Nurse Practitioner | DX: E87.6 Hypokalemia (principal); E11.65 Type 2 diabetes mellitus with hyperglycemia; I10 Essential (primary) hypertension; E55.9 Vitamin D deficiency, unspecified; Z79.899 Other long term (current) drug therapy | CPT/HCPCS: 80053; 80061; 82306; 82607; 83036; 84443 ==

== ENCOUNTER 2024-05-28 12:02 | Outpatient (CLI) | payer MEDICARE, MEDICAID, SELFPAY ==
--- NOTE | 2024-05-28 12:10 | MM_ITS ---
WS: [id number] BILATERAL 3D TOMOSYNTHESIS DIGITAL SCREENING MAMMOGRAPHY WITH CAD CLINICAL INFORMATION: SCREENING HISTORY: Screening mammogram. No current complaints. COMPARISON: 2023 TECHNIQUE: Bilateral CC and MLO views. FINDINGS: Scattered fibroglandular densities bilaterally. No suspicious focal mass, asymmetry, calcifications, or architectural distortion. No evidence of malignancy. Vascular calcifications. Secretory calcifications. MM/MM scr tomosynthesis [id number] IMPRESSION: DENSITY: There are scattered areas of fibroglandular density. BI-RADS: 2 - Benign. FOLLOW UP: 1 Year Follow-up Recommend return to annual screening mammography.
== END 2024-05-28 12:03 | disposition home or self-care (01) ==
LOC: MOBLMAM 12:11
PROVIDERS: PCP Nurse Practitioner; Visit Provider Nurse Practitioner
DX: Z12.31 Encounter for screening mammogram for malignant neoplasm of breast (principal); R92.323 Mammographic fibroglandular density, bilateral breasts; R92.1 Mammographic calcification found on diagnostic imaging of breast
CPT/HCPCS: 77063; 77067

== ENCOUNTER → 2024-06-17 14:33 | Outpatient (BNVA) | payer OTHER, MEDICAID, SELFPAY | PROVIDERS: PCP Nurse Practitioner; Visit Provider Internal Medicine | DX: I11.0 Hypertensive heart disease with heart failure (principal); I50.9 Heart failure, unspecified; R60.9 Edema, unspecified; R07.89 Other chest pain; R06.00 Dyspnea, unspecified; G47.30 Sleep apnea, unspecified; E78.5 Hyperlipidemia, unspecified; E11.65 Type 2 diabetes mellitus with hyperglycemia | CPT/HCPCS: 99214 ==

== ENCOUNTER → 2024-11-12 09:49 | Outpatient (BNVA) | payer OTHER, MEDICAID, SELFPAY | PROVIDERS: PCP Nurse Practitioner; Visit Provider Nurse Practitioner | DX: I10 Essential (primary) hypertension (principal); E78.5 Hyperlipidemia, unspecified; Z86.73 Personal history of transient ischemic attack (TIA), and cerebral infarction without residual deficits; M54.17 Radiculopathy, lumbosacral region; E55.9 Vitamin D deficiency, unspecified | CPT/HCPCS: 80053; 80061; 82306; 84443 ==